=== PATIENT | female | born 1955 | race Caucasian/White ===

== ENCOUNTER 2016-10-16 13:18 | Inpatient (IN) | payer OTHER ==
[~2016-10-16] VITALS: Ht 154.9 cm; Wt 70.4 kg
[2016-10-16] VITALS (7 sets, daily range): BP systolic 128–169; BP diastolic 65–86
--- NOTE | ~2016-10-16 | CON ---
[place], [place] REPORT OF CONSULTATION NAME: BRANDYN ESTEBAN [facility] #: [id number] UNIT #: [id number] ROOM: 407 DOCTOR: LEE KHOURY MD BIRTHDATE: [birth year] DOS: 10/17/2016 REASON FOR CONSULTATION: Assess the patient for ongoing acute exacerbation of respiratory symptoms. HISTORY OF PRESENT ILLNESS: This is a 61-year-old white female known to me with past history of COPD presented to the hospital. The patient has been noted with increased respiratory symptom. The patient has been noted with symptoms of increased shortness of breath, which present for the past couple of days associated with productive cough with yellowish sputum expectoration having chills at home and earache. The patient stated symptoms of upper respiratory tract were also started with rhinorrhea and others. There were no symptoms of hemoptysis. She does have some symptoms of wheezing as well with the chest tightness in the chest. The patient has been assessed in the hospital. The patient has been admitted for medical management of acute exacerbation of COPD. REVIEW OF SYSTEMS: CONSTITUTIONAL: There were no fever, but does complain of chills. She was complaining of fatigue. EYES: Denies any burning, redness, or tenderness. EARS, NOSE, THROAT: No sore throat, hoarseness, otalgia, postnasal drainage. CARDIOVASCULAR: Denies anginal pain, edema or pain of the lower extremities or palpitations. GASTROINTESTINAL: Denies symptoms of dysphagia, nausea, vomiting, diarrhea, abdominal pain, hematemesis or melena. GENITOURINARY: Denies dysuria, suprapubic pain, hematuria. MUSCULOSKELETAL: Denies acute joint pain, redness, or tenderness. SKIN: No lesions or rashes. CENTRAL NERVOUS SYSTEM: Denies dizziness, headache, diplopia, syncopal episodes or seizures. MUSCULOSKELETAL: Denies acute joint pain, redness, or tenderness. Remaining systems were reviewed with the patient, they were noted all negative. PAST MEDICAL HISTORY: 1. The patient's past review of the medical records were noted as acute exacerbation of COPD management. In 09/2015, the patient has been treated for couple of days and then sent home and has actually done well in the home settings. 2. History of severe centrilobular emphysema. 3. Uncomplicated mild persistent bronchial asthma. 4. Hyperlipidemia. 5. Type 2 diabetes mellitus. 6. Generalized anxiety disorder. 7. Osteoporosis. 8. Vitamin D deficiency. 9. History of glaucoma. 10. Chronic respiratory failure, use of oxygen 2 liter nasal cannula. 11. Gastroesophageal reflux disease. PAST SURGICAL HISTORY: [place], [place] REPORT OF CONSULTATION NAME: BRANDYN ESTEBAN UNIT #: [id number] ROOM: 407 DOCTOR: LEE KHOUYR MD BIRTHDATE: [birth year] 1. Reported as cholecystectomy. 2. Surgery of the eye. 3. A ventral hernia repair. 4. Tubal ligation. 5. Surgery of the foot. SOCIAL HISTORY: The patient is , has 2 children. She has been known with past history of tobacco use since age of [age] years old from patient about a pack of cigarettes per day until 2008. There was no history of alcohol use or illicit drug use. FAMILY HISTORY: Father at age of 55 due to complication of acute myocardial infarction. Mother at age 5656 years old from complication related to emphysema as well. MEDICATIONS: Current medication administration use of vitamin D, Fosamax, latanoprost eye drops, gemfibrozil, Incruse Ellipta, melatonin at that time, aspirin 81 mg, citalopram, Lovenox for DVT prophylaxis, metformin, Protonix, sliding insulin coverage, Solu-Medrol mg q.8 hours, Mucinex 1200 mg p.o. b.i.d., DuoNeb, albuterol sulfate for this patient, Zithromax, Rocephin, and other p.r.n. medications administration. DRUG ALLERGIES: No known drug allergies. PHYSICAL EXAMINATION: GENERAL: A 61-year-old female currently noted awake and alert without any distress. Height of 5 feet 1 inch, weight of 155 pounds, BMI 29.3. VITAL SIGNS: Shows normal temperature, respiratory rate 20, heart rate of 100-112, blood pressure 134/60-141/68. Pulse oxygen saturation noted on 2 liters nasal cannula 95% saturation. HEENT: Examination shows head was atraumatic. Eyes nonicterus. NECK: Supple. CARDIOVASCULAR: S1, S2 audible. LUNGS: Showed diffuse reduction of the breath sounds bilaterally with mild to moderate expiratory wheezing, no crackles. ABDOMEN: Soft, nontender, bowel sounds present. CENTRAL NERVOUS SYSTEM: The patient was noted cranial nerves 2 through 12 intact. No focal deficit. MUSCULOSKELETAL: No deformities. SKIN: No lesions or rashes. LABORATORY DATA: CBC: WBC count 7.5, hemoglobin 13.2, hematocrit 42.5, platelet count was normal. BMP of the patient yesterday on admission, BUN 13, creatinine 1.18. Remaining labs for this patient normal. Lactic acid 4.5. CBC of the patient on 10/17/2016 was noted as normal. CMP on 10/17/2016 shows normal BUN and creatinine. Follow up lactic acid this patient was noted as 1.8. Chest x-ray shows changes of COPD, hyperinflation. CT of the chest that was done for the patient yesterday as well, which was reviewed shows evidence of centrilobular emphysema changes were noted. There was no pulmonary infiltration was noted. About 4 mm nodule noted in the subpleural area in the right lower [place], [place] REPORT OF CONSULTATION NAME: BRANDYN ESTEBAN UNIT #: [id number] ROOM: 407 DOCTOR: MARICHUY ALBRIGHT MD,LEE BIRTHDATE: [birth year] lobe for this patient as a new finding. IMPRESSION: 1. The patient who has been currently admitted to the hospital with findings of acute sepsis related to acute tracheobronchitis, mild acute kidney injury, exacerbation of chronic obstructive pulmonary disease. 2. Incidental finding of 4 mm right lower lobe pulmonary nodule for the patient was noted as well at this time not requiring any assessment as inpatient. 3. Past history of tobacco use, which has been discontinued previously. 4. History of bronchial asthma, acute exacerbation as well. PLAN OF TREATMENT: Continue the current plan of management as ongoing. Reduce the dose of Solu-Medrol because reduction of respiratory symptoms was noted. Solu-Medrol will be decreased to 40 mg b.i.d. with close monitoring of the respiratory symptoms. Continuation of the bronchodilators; however, the bronchodilator needs to be changed from DuoNeb to albuterol sulfate alone because use of Incruse Ellipta and the drug interaction. The patient will be started on Dulera as the patient had use of Symbicort inhaler previously as well for the long-term management of Breo-Ellipta inhaler for the long-term management of bronchial asthma and chronic obstructive pulmonary disease. Other further changes in the treatment will be done based on the progression of the illness. Sputum for Gram stain and culture will be done if the patient is able to expectorate any sputum. Other changes in treatment and plan of management. Usual care. Pulmonary nodule assessment will be done as an outpatient with followup CT scan for this patient. PET scan will not have enough sensitivity because the nodule is less than 10 mm in size. Thanks for allowing me to participate in the care of this patient. LEE BENEDICT MD CM:CONSTR:REPORT OF CONSULTATION 1423 10/18/16 0451 interface
--- NOTE | ~2016-10-16 | EKG ---
[place], [place] ELECTROCARDIOGRAM REPORT NAME: BRANDYN ESTEBAN UNIT #: [id number] ROOM: 407 DOCTOR: RADHA SWIFT MD BIRTHDATE: [birth year] DOS: 10/16/2016 TIME: 1441. FINDINGS: 1. Sinus rhythm at the rate of 97. 2. Normal electrocardiogram. RADHA SWIFT MD CM:EKGRPT:ELECTROCARDIOGRAM REPORT [id number] 1915 RADHA SWIFT MD
--- NOTE | ~2016-10-16 | PR ---
[place], [place] PROGRESS NOTE [id number] UNIT #: [id number] ROOM: 407 DOCTOR: MARICHUY ALBRIGHT MD,LEE BIRTHDATE: [birth year] DOS: 10/18/2016 PULMONARY FOLLOWUP NOTE SUBJECTIVE: She has been noted with significant further improvement and resolution of respiratory symptom at this time, currently sitting on the bed, stating ambulating for the patient with decreased shortness of breath as well. OBJECTIVE: VITAL SIGNS: Showed normal temperature, respiratory rate 18, heart rate 83, blood pressure 138/68. The pulse oxygen saturation on 2 liters nasal cannula 98% saturation recorded. HEENT: Examination shows no acute change. NECK: Supple. CARDIOVASCULAR SYSTEM: S1, S2 audible. LUNGS: Noted without any wheezing or crackles. ABDOMEN: Soft, nontender. IMPRESSION: 1. Acute exacerbation of chronic obstructive pulmonary disease and bronchial asthma. Acute tracheobronchitis, which has been improving gradually. 2. A 4 mm nodule was noted for this patient, incidental finding of the right lower lobe. PLAN OF TREATMENT: The patient could be considered for home discharge since she has been noted significant reduction, improvement and resolution of the acute symptoms. Other treatment plan to be continued as previously in progress. Usual care. LEE BENEDICT MD CM:PNTRANS [id number] LEE ALBRIGHT MD 10/19/16 0353 interface
[~2016-10-16 13:18] MED LIST: ADVAIR 250/501 EA INH; ALENDRONATE SOD70 M1 PO; ALLEGRA-D 24 H1 EACH PO; AMOXICILLIN500 MG PO; ANTIBIOTIC O500 U/GM TP; ASPIRIN81 M1 PO; ATELVIA35 MG PO; ATIVAN1 MG PO; AUGMENTIN 875875 MG PO; Albuterol Sulfat3 ML INH; BREO ELLIPTA 11 EACH IH; BROMPHENIRAMIN473 M4 PO; CALCIUM + D 6001 TA1 PO; CALCIUM CITRATE1 TA1; CALCIUM CITRATE1 TA1 PO; CALCIUM CITRATE1 TA5; CALCIUM/VITAMIN1 CAP PO; CELEXA20 MG PO; CIPRO250 MG PO; CIPRO500 MG PO; CIPRODEX 0.3%-7.5 ML OT; CYCLOBENZAPRINE10 MG PO; DAYPRO600 M1 PO; DIFLUCAN150 MG PO; DOXYCYCLINE100 M3 PO; FLAGYL500 MG PO; Flovent 220 M220 MCG INH; GLUCOPHAGE500 MG PO; HYDROCODONE BIT1 T11 PO; IBUPROFEN600 MG PO; INCRUSE EL62.5 MCG/A IH; LEVAQUIN750 M1 PO; LOPID600 MG PO; LOTRISONE 0.05%15 GM T; MOTRIN800 MG PO; MYCOSTATIN100000 U/M PO; NAPROSYN500 MG PO; NEUTRA-PHOS F1.25 GM PO; NYSTATIN100000 U/M PO; OXYGEN NAS; PREDNICOT20 MG PO; PREDNISONE10 MG PO; PREDNISONE20 MG PO; PRILOSEC20 M2 PO; PRILOSEC20 MG PO; PROAIR HFA0.09 MG/AC IH; ROBAXIN750 MG PO; SIMVASTATIN80 MG PO; SPIRIVA -- 3018 MCG INH; THE MEDICINE S400 IU PO; TRAMADOL HCL50 MG PO; TRIMOX500 MG PO; UREA; UREA T; VENTOLIN0.09 MG/AC IH; VISTARIL50 MG PO; VITAMIN D50000 I2 PO; VOLTAREN50 M1 PO; XALATAN 0.005%2.5 ML INTRAOC; ZITHROMAX250 MG PO; ZOFRAN4 MG PO
[2016-10-16 14:38] LABS: BASO # 0.1 10*3/uL (0.0-0.1); BASO % 0.7 % (0.0-1.0); EOS # 0.6 10*3/uL (0.0-0.4); EOS % 7.5 % (1.0-4.0); HEMATOCRIT 42.5 % (37.0-47.0); HEMOGLOBIN 13.2 g/dl (12.0-16.0); IG # 0.1 10*3/uL (0.0-0.1); LYMPH # 1.4 10*3/uL (1.3-4.4); MEAN CELL VOLUME 79.9 fl (81.0-99.0); MEAN CORPUSCULAR HGB 24.8 pg (27.0-31.0); MEAN CORPUSCULAR HGB CONC 31.1 g/dl (33.0-37.0); MEAN PLATELET VOLUME 10.1 fl (9.6-12.3); MONO # 0.7 10*3/uL (0.1-1.0); MONO % 9.2 % (3.0-9.0); NEUT # 4.7 10*3/uL (2.3-7.9); NEUT % 62.3 % (47.0-73.0); PLATELET COUNT AUTOMATED 252 10*3/uL (130-400); RED BLOOD COUNT 5.32 10*6/uL (4.10-5.10); RED CELL DISTRI WIDTH 14.2 % (0-14.5); WHITE BLOOD COUNT 7.5 10*3/uL (4.8-10.8)
[2016-10-16 15:01] LABS: BUN 13 mg/dl (7-24); CARBON DIOXIDE 30 mmol/L (21-32); CHLORIDE 105 mmol/L (98-107); EST GLOM FILT AFRICAN AMERICAN 57 ml/min; GLUCOSE 147 mg/dL (65-99); POTASSIUM 4.1 mmol/L (3.5-5.1); SODIUM 143 mmol/L (136-145)
[2016-10-16 15:06] LABS: TROPONIN I < 0.015 ng/ml (<0.045)
[2016-10-16] MEDS ORDERED: INCRUSE EL62.5 MCG/A IH (17:02)
[2016-10-16] MEDS ORDERED: DIAZEPAM2 MG PO (17:05)
[2016-10-16] MEDS ORDERED: MELATONIN3 MG PO (17:08)
[2016-10-16 18:52] LABS: LA>2 REFLEX 2 HR DRAW NOW
[2016-10-17] VITALS: BP 128/62
[2016-10-17 06:28] LABS: BASO % 0.3 % (0.0-1.0); EOS % 0.1 % (1.0-4.0); HEMATOCRIT 40.6 % (37.0-47.0); HEMOGLOBIN 12.5 g/dl (12.0-16.0); IG # 0.2 10*3/uL (0.0-0.1); LYMPH # 0.8 10*3/uL (1.3-4.4); LYMPH % 8.9 % (27.0-41.0); MEAN CORPUSCULAR HGB 25.3 pg (27.0-31.0); MEAN CORPUSCULAR HGB CONC 30.8 g/dl (33.0-37.0); MEAN PLATELET VOLUME 10.2 fl (9.6-12.3); MONO # 0.1 10*3/uL (0.1-1.0); MONO % 1.6 % (3.0-9.0); NEUT # 7.5 10*3/uL (2.3-7.9); NEUT % 86.5 % (47.0-73.0); PLATELET COUNT AUTOMATED 240 10*3/uL (130-400); RED BLOOD COUNT 4.95 10*6/uL (4.10-5.10); RED CELL DISTRI WIDTH 14.1 % (0-14.5); WHITE BLOOD COUNT 8.7 10*3/uL (4.8-10.8)
[2016-10-17 06:49] LABS: HEMOGLOBIN A1c 5.7 % (4.8-5.6)
[2016-10-17 06:53] LABS: ALBUMIN 3.4 gm/dl (3.1-4.5); BUN 11 mg/dl (7-24); CARBON DIOXIDE 26 mmol/L (21-32); CHLORIDE 108 mmol/L (98-107); EST GLOM FILT AFRICAN AMERICAN > 60 ml/min; GLUCOSE 195 mg/dL (65-99); MAGNESIUM 2.3 mg/dL (1.5-2.1); PHOSPHOROUS 2.7 mg/dL (2.5-4.9); POTASSIUM 4.3 mmol/L (3.5-5.1); SGOT/AST 9 IU/L (3-35); SGPT/ALT 15 U/L (12-78); SODIUM 142 mmol/L (136-145)
[2016-10-17 07:03] LABS: FOLIC ACID 8.26 ng/mL (>5.38); VITAMIN D, 25-HYDROXY 22.1 ng/mL (30-100)
[2016-10-17 07:04] LABS: ALKALINE PHOSPHATASE 98 U/L (45-117); BILIRUBIN, TOTAL 0.2 mg/dl (0.2-1.0); THYROID STIM HORMONE (HS) 0.464 uIU/ml (0.358-4.75); TOTAL PROTEIN 7.1 gm/dL (6.4-8.2)
[2016-10-17 08:00] VITALS: BP 134/56
[2016-10-17 12:00] VITALS: BP 134/60
[2016-10-17 16:00] VITALS: BP 140/60
[2016-10-17 20:00] VITALS: BP 121/46
[2016-10-17 20:41] VITALS: BP 120/36
[2016-10-18] VITALS: BP 129/60
[2016-10-18 04:00] VITALS: BP 126/53
[2016-10-18 08:00] VITALS: BP 138/68
[2016-10-18] MEDS ORDERED: MUCINEX ER600 MG PO (09:53)
[2016-10-18] MEDS ORDERED: PREDNISONE50 MG PO (09:54)
[2016-10-18] MEDS ORDERED: LEVAQUIN500 M2 PO (09:54)
[2016-10-18] MEDS ORDERED: Motrin,Rufen800 MG PO (09:59)
== END 2016-10-18 10:34 | disposition home or self-care (01) | DRG 871 ==
LOC: ED 13:18 → EDHOLD 16:10 → 4E 16:10
PROVIDERS: Emergency Medicine; Internal Medicine
DX: A41.9 Sepsis, unspecified organism (principal); J18.9 Pneumonia, unspecified organism; N17.0 Acute kidney failure with tubular necrosis; J96.20 Acute and chronic respiratory failure, unspecified whether with hypoxia or hypercapnia; J44.1 Chronic obstructive pulmonary disease with (acute) exacerbation; J44.0 Chronic obstructive pulmonary disease with (acute) lower respiratory infection; E11.8 Type 2 diabetes mellitus with unspecified complications; Z66 Do not resuscitate; R65.20 Severe sepsis without septic shock; I10 Essential (primary) hypertension; K21.9 Gastro-esophageal reflux disease without esophagitis; J20.9 Acute bronchitis, unspecified; E58 Dietary calcium deficiency; E55.9 Vitamin D deficiency, unspecified; E78.1 Pure hyperglyceridemia; R91.1 Solitary pulmonary nodule; Z90.49 Acquired absence of other specified parts of digestive tract; Z98.51 Tubal ligation status; Z87.891 Personal history of nicotine dependence; Z82.49 Family history of ischemic heart disease and other diseases of the circulatory system; Z79.51 Long term (current) use of inhaled steroids; Z79.84 Long term (current) use of oral hypoglycemic drugs; Z79.899 Other long term (current) drug therapy; Z99.81 Dependence on supplemental oxygen; Z82.5 Family history of asthma and other chronic lower respiratory diseases

== ENCOUNTER 2016-10-26 12:04 | Inpatient (IN) | payer OTHER ==
[~2016-10-26] VITALS: Ht 154.9 cm; Wt 66.3 kg
[2016-10-26] VITALS (7 sets, daily range): BP systolic 126–165; BP diastolic 64–89
--- NOTE | ~2016-10-26 | PROC NOTE ---
[place], [place] PROCEDURE NOTE [id number] UNIT #: [id number] ROOM: 412 DOCTOR: MARICHUY ALBRIGHT MD,LEE BIRTHDATE: [birth year] DOS: 10/28/2016 PREOPERATIVE DIAGNOSES: Severe nonproductive cough for this patient with chronic obstructive pulmonary disease exacerbation. POSTOPERATIVE DIAGNOSES: Removal of moderate amount of impaction, thick mucus plugs in the endobronchial tree bilaterally with finding of acute tracheobronchitis were also noted. PROCEDURE DESCRIPTION: Informed consent obtained for the patient. The patient brought to the OR and placed in supine position. Conscious sedation administered by the Anesthesia Department. After achieving appropriate sedation, airway introduced into the mouth. Bronchoscope advanced into the airway into laryngeal area. Epiglottis and vocal cords were seen. Bronchoscope advanced to the vocal cords into the tracheal lumen. The tracheal lumen was noted with the moderate amount of mucus secretion, which was present in the endobronchial tree and tracheal lumen. Impaction of the mucous plug were noted in the bronchial tree bilaterally. The right upper, right middle, right lower, left upper, lingular lower lobe bronchi were all examined. The procedure was well tolerated by the patient without any complications. Postoperative findings for this patient were discussed with the patient briefly after the completion of the procedure in the recovery room. The bronchial washings sent for all the cultures. LEE BENEDICT MD CM:PROCNOTE:PROCEDURE NOTE 1042 [id number] LEE ALBRIGHT MD
--- NOTE | ~2016-10-26 | PN ---
[place], [place] PROGRESS NOTE NAME: BRANDYN ESTEBAN [facility] #: [id number] UNIT #: [id number] ROOM: 412 DOCTOR: LEE KHOURY MD BIRTHDATE: [birth year] DATE: 10/29/16 SUBJECTIVE: She had bronchoscopy done yesterday with the removal of the mucous plugs resulting in improvement in symptoms of coughing. Denies symptoms of chest pain or any abdominal pain. OBJECTIVE: VITAL SIGNS: Normal temperature, respiratory rate of 18, heart rate of 89, blood pressure 144/78. Intake is 2900 mL, ____ 1100 mL, pulse oxygen saturation on 2 liters nasal cannula 97% saturation. HEENT: Examination shows no new change. CARDIOVASCULAR: S1, S2 audible. LUNGS: The patient was noted without any crackles. There was no wheezing. ABDOMEN: Soft, nontender. LABORATORY DATA: Culture of the bronchial washing showing preliminary normal jamarcus, final culture results were pending. The Gram stain of the patient's bronchial washing was noted with moderate white blood cells, few epithelial cells, rare gram-negative bacilli and gram-positive bacilli. BMP: Glucose of 237, remaining BMP normal. CBC: WBC count 19.1, remaining CBC grossly normal. IMPRESSION: The patient with resolving acute tracheobronchitis with current medical management, status post bronchoscopy with the clearance of the mucous plugs from the airways resulting in improvement and resolving acute tracheobronchitis and acute chronic hypoxic respiratory failure with chronic obstructive pulmonary disease. PLAN OF TREATMENT: The patient could be discharged home on oral antibiotics. Continuation of current plan of management as previously. Usual care. Supportive therapy as a plan of care as in progress. Usual treatments. LEE KHOURY MD CM:PNTRANS 1203 1144 LEE ALBRIGHT MD 11/01/16 1144 REHANA NERI.R
--- NOTE | ~2016-10-26 | CON ---
[place], [place] REPORT OF CONSULTATION NAME: BRANDYN ESTEBAN [facility] #: [id number] UNIT #: [id number] ROOM: 412 DOCTOR: MARICHUY ALBRIGHT MDLEE BIRTHDATE: [birth year] DATE: 10/27/16 PULMONARY CONSULTATION, EVALUATION AND MANAGEMENT NOTE REASON FOR CONSULTATION: To assess the patient for recurrence of the respiratory symptoms, nonproductive cough and other assessment. HISTORY OF PRESENT ILLNESS: This is a 61-year-old white female who has been recently admitted to the hospital, treated for acute exacerbation of COPD, acute tracheobronchitis, presented back to the Emergency Room where the patient has been noted with generalized weakness and fatigue and also noted with cough, which has been noted nonproductive. The patient denies symptoms of chest pain. The wheezing of the patient has been resolved and completely improved. The patient denies any symptoms of hemoptysis. She came back to the Emergency Room and assessed on 10/26/2016 and was readmitted to the hospital for further medical management. REVIEW OF SYSTEMS: CONSTITUTIONAL: Fatigue and tiredness noted without any symptoms of fever or chills. EYES: Denies any burning, redness, or tenderness. EARS, NOSE, THROAT: No sore throat, hoarseness, otalgia, or postnasal drainage. CARDIOVASCULAR: Denies anginal pain, edema or pain of lower extremities or palpitations. GASTROINTESTINAL: No dysphagia, nausea, vomiting, diarrhea, abdominal pain, hematemesis, melena, or hematochezia. GENITOURINARY: Denies dysuria, suprapubic pain or hematuria. MUSCULOSKELETAL: No acute joint pain, redness, or tenderness. SKIN: No lesions or rashes. MUSCULOSKELETAL: No acute deformities. CENTRAL NERVOUS SYSTEM: Denies any symptoms of tingling sensation, syncopal episodes or seizures. Remaining systems were reviewed with the patient, they were noted all negative. PAST MEDICAL HISTORY: Noted with recent hospitalization in this hospital and discharged on 10/18/2016 for the medical management for acute exacerbation of COPD and acute tracheobronchitis. Past medical history, social history, surgical history, family history has been reviewed with the patient and remains unchanged as previous consultation which was completed on 10/17/2016. Please refer to that consultation in the [facility] for this patient for any further information if needed to be obtained from that. CURRENT MEDICATIONS: The current medications which has been used for this patient were noted use of citalopram, ____, Lovenox for DVT prophylaxis, DuoNeb, aspirin, ibuprofen, Dulera, IV Solu-Medrol, doxycycline intravenously and other p.r.n. medications administration. PHYSICAL EXAMINATION: GENERAL: A 61-year-old female who has been currently noted to be awake and alert without any distress, currently sitting on the side of the bed. The height was noted as 5 feet 1 inch, weight of 146 pounds and BMI 27.6. [place], [place] REPORT OF CONSULTATION NAME: BRANDYN ESTEBAN UNIT #: [id number] ROOM: 412 DOCTOR: MARICHUY ALBRIGHT MD,LEE BIRTHDATE: [birth year] VITAL SIGNS: For the patient which has been recorded shows the temperature of the patient was noted as normal. The respiratory rate of the patient recorded as 20. The heart rate of 90 and blood pressure 119/59. Her pulse oxygen saturation recorded on 2 L nasal cannula was 97% saturation. HEENT: Examination shows head was atraumatic. Eyes are nonicterus. NECK: Supple. CARDIOVASCULAR: S1, S2 audible. LUNGS: Noted with general reduction in breath sounds bilaterally without any wheezing or crackles at the present time. ABDOMEN: Soft, nontender. LABORATORY DATA: BMP this morning, glucose 181, BUN and creatinine was normal. Phosphorus of 1.9. CBC this morning, WBC count 15.1, hemoglobin and hematocrit normal, platelet count was normal with 87% segmented neutrophils. CK-MB and troponin of the patient 3 sets obtained yesterday and this morning were noted as normal. The chest x-ray of the patient that was done on admission shows hyperinflation changes of COPD. D-dimer were noted as normal range. IMPRESSION: The patient who has been currently admitted to the hospital noted with acute bronchitis with coughing for this patient with chronic obstructive pulmonary disease exacerbation as well. Other previous medical problems previously listed in the history for this patient remains unchanged. PLAN OF TREATMENT: Because of severe nonproductive cough, she will benefit from fiberoptic bronchoscopy, which is planned to be done in the morning and the patient is agreeable for the procedure. N.p.o. past midnight status has been ordered. Gradual reduction of Solu-Medrol dose for this patient as well would be started as the patient's wheezing has not been present on today's examination. Continuation of current antibiotics. No further change in the treatment needs to be done. Usual care. Other supportive plan of management and care. Usual medical management, other therapies. MARICHUY ALBRIGHT MD,LEE CM:CONSTR:REPORT OF CONSULTATION 0719 10/28/16 1723 REHANA NERI MIS.R
--- NOTE | ~2016-10-26 | PR ---
[place], [place] PROGRESS NOTE NAME: BRANDYN ESTEBAN [facility] #: [id number] UNIT #: [id number] ROOM: 412 DOCTOR: MARICHUY ALBRIGHT MD,LEE BIRTHDATE: [birth year] DOS: 10/28/2016 SUBJECTIVE: She has been noted comfortable at this time, still noted symptoms of nonproductive cough. The patient was planned for bronchoscopy today. Has been noted n.p.o. past midnight for bronchoscopy. OBJECTIVE: VITAL SIGNS: Showed normal temperature, respiratory rate of 19, heart rate of 84, blood pressure 135/65. The pulse oxygen saturation of the patient recorded as 98% on 2 liters nasal cannula. HEENT: Showed no acute change. NECK: Supple. CARDIOVASCULAR: S1, S2 audible. LUNGS: Noted without any wheezing or crackles at this time. Breath sounds noted moderately decreased bilaterally. There was no wheezing. ABDOMEN: Soft, nontender. LABORATORY DATA: CBC today: WBC count of 27.2. The remaining CBC was normal. Blood culture from the 18 of this month showed no bacterial growth, final culture results were pending. BMP of patient shows glucose 220, BUN and creatinine was normal. IMPRESSION: The patient, who had been currently treated for acute tracheobronchitis. The patient has severe nonproductive cough with the chronic obstructive pulmonary disease. PLAN FOR TREATMENT: No change in plan of management at this time. Proceed with the bronchoscopy already planned for this patient. Further treatment changes will be done based on the progression of the illness. Leukocytosis in which the patient, which has been observed, the patient will be monitored. At the present time, most likely related to use of corticosteroids. LEE BENEDICT MD CM:PNTRANS 1040 1321 LEE ALBRIGHT MD 10/28/16 1322 interface
--- NOTE | ~2016-10-26 | CON ---
[place], [place] REPORT OF CONSULTATION NAME: BRANDYN ESTEBAN [facility] #: [id number] UNIT #: [id number] ROOM: 412 DOCTOR: MARICHUY ALBRIGHT MDLEE BIRTHDATE: [birth year] DATE: 10/27/16 PULMONARY CONSULTATION, EVALUATION AND MANAGEMENT NOTE REASON FOR CONSULTATION: To assess the patient for recurrence of the respiratory symptoms, nonproductive cough and other assessment. HISTORY OF PRESENT ILLNESS: This is a 61-year-old white female who has been recently admitted to the hospital, treated for acute exacerbation of COPD, acute tracheobronchitis, presented back to the Emergency Room where the patient has been noted with generalized weakness and fatigue and also noted with cough, which has been noted nonproductive. The patient denies symptoms of chest pain. The wheezing of the patient has been resolved and completely improved. The patient denies any symptoms of hemoptysis. She came back to the Emergency Room and assessed on 10/26/2016 and was readmitted to the hospital for further medical management. REVIEW OF SYSTEMS: CONSTITUTIONAL: Fatigue and tiredness noted without any symptoms of fever or chills. EYES: Denies any burning, redness, or tenderness. EARS, NOSE, THROAT: No sore throat, hoarseness, otalgia, or postnasal drainage. CARDIOVASCULAR: Denies anginal pain, edema or pain of lower extremities or palpitations. GASTROINTESTINAL: No dysphagia, nausea, vomiting, diarrhea, abdominal pain, hematemesis, melena, or hematochezia. GENITOURINARY: Denies dysuria, suprapubic pain or hematuria. MUSCULOSKELETAL: No acute joint pain, redness, or tenderness. SKIN: No lesions or rashes. MUSCULOSKELETAL: No acute deformities. CENTRAL NERVOUS SYSTEM: Denies any symptoms of tingling sensation, syncopal episodes or seizures. Remaining systems were reviewed with the patient, they were noted all negative. PAST MEDICAL HISTORY: Noted with recent hospitalization in this hospital and discharged on 10/18/2016 for the medical management for acute exacerbation of COPD and acute tracheobronchitis. Past medical history, social history, surgical history, family history has been reviewed with the patient and remains unchanged as previous consultation which was completed on 10/17/2016. Please refer to that consultation in the [facility] for this patient for any further information if needed to be obtained from that. CURRENT MEDICATIONS: The current medications which has been used for this patient were noted use of citalopram, ____, Lovenox for DVT prophylaxis, DuoNeb, aspirin, ibuprofen, Dulera, IV Solu-Medrol, doxycycline intravenously and other p.r.n. medications administration. PHYSICAL EXAMINATION: GENERAL: A 61-year-old female who has been currently noted to be awake and alert without any distress, currently sitting on the side of the bed. The height was noted as 5 feet 1 inch, weight of 146 pounds and BMI 27.6. [place], [place] REPORT OF CONSULTATION NAME: BRANDYN ESTEBAN UNIT #: [id number] ROOM: 412 DOCTOR: MARICHUY ALBRIGHT MD,LEE BIRTHDATE: [birth year] VITAL SIGNS: For the patient which has been recorded shows the temperature of the patient was noted as normal. The respiratory rate of the patient recorded as 20. The heart rate of 90 and blood pressure 119/59. Her pulse oxygen saturation recorded on 2 L nasal cannula was 97% saturation. HEENT: Examination shows head was atraumatic. Eyes are nonicterus. NECK: Supple. CARDIOVASCULAR: S1, S2 audible. LUNGS: Noted with general reduction in breath sounds bilaterally without any wheezing or crackles at the present time. ABDOMEN: Soft, nontender. LABORATORY DATA: BMP this morning, glucose 181, BUN and creatinine was normal. Phosphorus of 1.9. CBC this morning, WBC count 15.1, hemoglobin and hematocrit normal, platelet count was normal with 87% segmented neutrophils. CK-MB and troponin of the patient 3 sets obtained yesterday and this morning were noted as normal. The chest x-ray of the patient that was done on admission shows hyperinflation changes of COPD. D-dimer were noted as normal range. IMPRESSION: The patient who has been currently admitted to the hospital noted with acute bronchitis with coughing for this patient with chronic obstructive pulmonary disease exacerbation as well. Other previous medical problems previously listed in the history for this patient remains unchanged. PLAN OF TREATMENT: Because of severe nonproductive cough, she will benefit from fiberoptic bronchoscopy, which is planned to be done in the morning and the patient is agreeable for the procedure. N.p.o. past midnight status has been ordered. Gradual reduction of Solu-Medrol dose for this patient as well would be started as the patient's wheezing has not been present on today's examination. Continuation of current antibiotics. No further change in the treatment needs to be done. Usual care. Other supportive plan of management and care. Usual medical management, other therapies. MARICHUY ALBRIGHT MD,LEE CM:CONSTR:REPORT OF CONSULTATION 1019 11/01/16 1445 REHANA NERI MIS.R
[~2016-10-26 12:04] MED LIST changes: +DIAZEPAM2 MG PO; +LEVAQUIN500 M2 PO; +MELATONIN3 MG PO; +MUCINEX ER600 MG PO; +Motrin,Rufen800 MG PO; +PREDNISONE50 MG PO
[2016-10-26 13:18] LABS: HEMATOCRIT 41.9 % (37.0-47.0); HEMOGLOBIN 13.5 g/dl (12.0-16.0); MEAN CELL VOLUME 79.2 fl (81.0-99.0); MEAN CORPUSCULAR HGB 25.5 pg (27.0-31.0); MEAN CORPUSCULAR HGB CONC 32.2 g/dl (33.0-37.0); MEAN PLATELET VOLUME 9.7 fl (9.6-12.3); PLATELET COUNT AUTOMATED 298 10*3/uL (130-400); RED BLOOD COUNT 5.29 10*6/uL (4.10-5.10); RED CELL DISTRI WIDTH 14.6 % (0-14.5); WHITE BLOOD COUNT 15.3 10*3/uL (4.8-10.8)
[2016-10-26 13:35] LABS: ALBUMIN 3.3 gm/dl (3.1-4.5); ALKALINE PHOSPHATASE 94 U/L (45-117); BILIRUBIN, TOTAL 0.3 mg/dl (0.2-1.0); BUN 17 mg/dl (7-24); CARBON DIOXIDE 29 mmol/L (21-32); CHLORIDE 104 mmol/L (98-107); EST GLOM FILT AFRICAN AMERICAN > 60 ml/min; GLUCOSE 131 mg/dL (65-99); SGOT/AST 8 IU/L (3-35); SGPT/ALT 11 U/L (12-78); SODIUM 140 mmol/L (136-145); TOTAL PROTEIN 6.7 gm/dL (6.4-8.2); TROPONIN I < 0.015 ng/ml (<0.045)
[2016-10-26 13:40] LABS: EOSINOPHIL # 0.6 10*3/uL (0-0.4); EOSINOPHILS 4 % (1-4); LYMPHOCYTE # 2.6 10*3/uL (1.3-4.4); MONOCYTE # 0.6 10*3/uL (0.1-1.0); NEUTROPHIL # 11.5 10*3/uL (2.3-7.9); NEUTROPHILS 75 % (47-73); PLATELET SUFFICIENCY NORMAL (NORMAL); TOTAL CELLS COUNTED 100 #CELLS
[2016-10-26 18:36] LABS: CKMB 0.8 ng/ml (0.5-3.6); CPK 26 U/L (26-192)
[2016-10-26 18:37] LABS: TROPONIN I < 0.015 ng/ml (<0.045)
[2016-10-27] VITALS: BP 120/61
[2016-10-27 00:38] LABS: CKMB 0.8 ng/ml (0.5-3.6); CPK 29 U/L (26-192); TROPONIN I < 0.015 ng/ml (<0.045)
[2016-10-27 06:39] LABS: HEMATOCRIT 39.7 % (37.0-47.0); HEMOGLOBIN 12.3 g/dl (12.0-16.0); MEAN CELL VOLUME 80.9 fl (81.0-99.0); MEAN CORPUSCULAR HGB 25.1 pg (27.0-31.0); MEAN PLATELET VOLUME 9.8 fl (9.6-12.3); PLATELET COUNT AUTOMATED 237 10*3/uL (130-400); RED BLOOD COUNT 4.91 10*6/uL (4.10-5.10); RED CELL DISTRI WIDTH 14.6 % (0-14.5); WHITE BLOOD COUNT 15.1 10*3/uL (4.8-10.8)
[2016-10-27 06:48] LABS: CPK 23 U/L (26-192)
[2016-10-27 06:59] LABS: TROPONIN I < 0.015 ng/ml (<0.045)
[2016-10-27 07:06] LABS: BUN 12 mg/dl (7-24); CARBON DIOXIDE 29 mmol/L (21-32); CHLORIDE 106 mmol/L (98-107); EST GLOM FILT AFRICAN AMERICAN > 60 ml/min; GLUCOSE 181 mg/dL (65-99); MAGNESIUM 2.7 mg/dL (1.5-2.1); PHOSPHOROUS 1.9 mg/dL (2.5-4.9); POTASSIUM 4.7 mmol/L (3.5-5.1); SODIUM 142 mmol/L (136-145)
[2016-10-27 07:16] LABS: LYMPHOCYTE # 0.9 10*3/uL (1.3-4.4); METAMYELOCYTES 2 % (0-0); MONOCYTE # 0.6 10*3/uL (0.1-1.0); MYELOCYTES 1 % (0-0); NEUTROPHIL # 13.1 10*3/uL (2.3-7.9); NEUTROPHILS 87 % (47-73); PLATELET SUFFICIENCY NORMAL (NORMAL); TOTAL CELLS COUNTED 100 #CELLS
[2016-10-27 08:00] VITALS: BP 119/59
[2016-10-27 12:00] VITALS: BP 157/68
[2016-10-27 16:00] VITALS: BP 114/90
[2016-10-27 20:00] VITALS: BP 138/63
[2016-10-28] VITALS (8 sets, daily range): BP systolic 125–159; BP diastolic 60–98
[2016-10-28 06:23] LABS: HEMATOCRIT 42.1 % (37.0-47.0); HEMOGLOBIN 12.5 g/dl (12.0-16.0); MEAN CELL VOLUME 83.5 fl (81.0-99.0); MEAN CORPUSCULAR HGB 24.8 pg (27.0-31.0); MEAN CORPUSCULAR HGB CONC 29.7 g/dl (33.0-37.0); MEAN PLATELET VOLUME 9.9 fl (9.6-12.3); RED BLOOD COUNT 5.04 10*6/uL (4.10-5.10); RED CELL DISTRI WIDTH 14.9 % (0-14.5); WHITE BLOOD COUNT 27.2 10*3/uL (4.8-10.8)
[2016-10-28 06:24] LABS: PLATELET COUNT AUTOMATED 309 10*3/uL (130-400)
[2016-10-28 06:51] LABS: BUN 14 mg/dl (7-24); CARBON DIOXIDE 28 mmol/L (21-32); CHLORIDE 107 mmol/L (98-107); EST GLOM FILT AFRICAN AMERICAN > 60 ml/min; GLUCOSE 220 mg/dL (65-99); PHOSPHOROUS 3.3 mg/dL (2.5-4.9); POTASSIUM 4.5 mmol/L (3.5-5.1); SODIUM 142 mmol/L (136-145)
[2016-10-28 07:06] LABS: LYMPHOCYTE # 1.9 10*3/uL (1.3-4.4); METAMYELOCYTES 1 % (0-0); MONOCYTE # 0.5 10*3/uL (0.1-1.0); MYELOCYTES 1 % (0-0); NEUTROPHIL # 24.2 10*3/uL (2.3-7.9); NEUTROPHILS 89 % (47-73); PLATELET SUFFICIENCY NORMAL (NORMAL); TOTAL CELLS COUNTED 100 #CELLS
[2016-10-29] VITALS: BP 136/61
[2016-10-29 05:53] LABS: BUN 23 mg/dl (7-24); CARBON DIOXIDE 31 mmol/L (21-32); CHLORIDE 104 mmol/L (98-107); EST GLOM FILT AFRICAN AMERICAN > 60 ml/min; GLUCOSE 237 mg/dL (65-99); POTASSIUM 4.9 mmol/L (3.5-5.1); SODIUM 142 mmol/L (136-145)
[2016-10-29 06:10] LABS: HEMATOCRIT 38.9 % (37.0-47.0); HEMOGLOBIN 11.9 g/dl (12.0-16.0); MEAN CELL VOLUME 81.9 fl (81.0-99.0); MEAN CORPUSCULAR HGB 25.1 pg (27.0-31.0); MEAN CORPUSCULAR HGB CONC 30.6 g/dl (33.0-37.0); MEAN PLATELET VOLUME 9.9 fl (9.6-12.3); PLATELET COUNT AUTOMATED 278 10*3/uL (130-400); RED BLOOD COUNT 4.75 10*6/uL (4.10-5.10); RED CELL DISTRI WIDTH 14.7 % (0-14.5); WHITE BLOOD COUNT 19.1 10*3/uL (4.8-10.8)
[2016-10-29 06:51] LABS: BASOPHIL # 0.2 10*3/uL (0-0.1); BASOPHILS 1 % (0-1); LYMPHOCYTE # 1.1 10*3/uL (1.3-4.4); MONOCYTE # 0.8 10*3/uL (0.1-1.0); NEUTROPHILS 89 % (47-73); PLATELET SUFFICIENCY NORMAL (NORMAL); TOTAL CELLS COUNTED 100 #CELLS
[2016-10-29 08:00] VITALS: BP 144/78
[2016-10-29 12:00] VITALS: BP 122/70
[2016-10-29] MEDS ORDERED: DOXYCYCLINE100 M3 PO (12:10)
[2016-10-29] MEDS ORDERED: PREDNISONE10 MG PO (12:10)
[2016-10-29 16:12] LABS: ACID FAST SPEC PROCESSING Concentration (.)
== END 2016-10-29 13:17 | disposition home or self-care (01) | DRG 871 ==
LOC: ED 12:04 → 4E 15:27 → EDHOLD 15:27 → 4E 16:31
PROVIDERS: Internal Medicine; Internal Medicine Critical Care Medicine; Internal Medicine Hospice and Palliative Medicine; Registered Nurse
PROC: 0BC48ZZ Extirpation of Matter from Right Upper Lobe Bronchus, Via Natural or Artificial Opening Endoscopic (ICD-10-PCS; principal; 2016-10-28)
PROC: 0BCB8ZZ Extirpation of Matter from Left Lower Lobe Bronchus, Via Natural or Artificial Opening Endoscopic (ICD-10-PCS; 2016-10-28)
PROC: 0BC98ZZ Extirpation of Matter from Lingula Bronchus, Via Natural or Artificial Opening Endoscopic (ICD-10-PCS; 2016-10-28)
PROC: 0BC88ZZ Extirpation of Matter from Left Upper Lobe Bronchus, Via Natural or Artificial Opening Endoscopic (ICD-10-PCS; 2016-10-28)
PROC: 0BC68ZZ Extirpation of Matter from Right Lower Lobe Bronchus, Via Natural or Artificial Opening Endoscopic (ICD-10-PCS; 2016-10-28)
PROC: 0BC58ZZ Extirpation of Matter from Right Middle Lobe Bronchus, Via Natural or Artificial Opening Endoscopic (ICD-10-PCS; 2016-10-28)
DX: A41.9 Sepsis, unspecified organism (principal); J18.9 Pneumonia, unspecified organism; E44.0 Moderate protein-calorie malnutrition; E11.65 Type 2 diabetes mellitus with hyperglycemia; J44.1 Chronic obstructive pulmonary disease with (acute) exacerbation; I10 Essential (primary) hypertension; E78.1 Pure hyperglyceridemia; J20.9 Acute bronchitis, unspecified; E55.9 Vitamin D deficiency, unspecified; K21.9 Gastro-esophageal reflux disease without esophagitis; E83.41 Hypermagnesemia; Z90.49 Acquired absence of other specified parts of digestive tract; Z98.51 Tubal ligation status; Z87.891 Personal history of nicotine dependence; Z82.49 Family history of ischemic heart disease and other diseases of the circulatory system; Z82.5 Family history of asthma and other chronic lower respiratory diseases; Z79.51 Long term (current) use of inhaled steroids; Z79.82 Long term (current) use of aspirin; Z79.1 Long term (current) use of non-steroidal anti-inflammatories (NSAID); Z79.84 Long term (current) use of oral hypoglycemic drugs; Z79.899 Other long term (current) drug therapy; Z68.26 Body mass index [BMI] 26.0-26.9, adult; E83.39 Other disorders of phosphorus metabolism

== ENCOUNTER 2016-11-05 18:14 | Inpatient (IN) | payer OTHER ==
[~2016-11-05] VITALS: Ht 154.9 cm; Wt 63.2 kg
--- NOTE | ~2016-11-05 | CON ---
[place], [place] REPORT OF CONSULTATION NAME: BRANDYN ESTEBAN [facility] #: [id number] UNIT #: [id number] ROOM: 412 DOCTOR: LEE KHOURY MD BIRTHDATE: [birth year] DOS: 11/07/2016 PULMONARY CONSULTATION EVALUATION AND MANAGEMENT REASON FOR CONSULTATION: Assess the patient's symptoms of shortness of breath. HISTORY OF PRESENT ILLNESS: This is a 61-year-old white female. The patient has been known to me. The patient has been admitted to the hospital few weeks a couple of times in this hospital. Last admission, the patient was noted in October 2016. The patient has been noted with acute exacerbation of COPD, acute tracheobronchitis with nonproductive cough, mostly was noted as cough more than exacerbation of COPD. She underwent bronchoscopy for patient on October 28, 2016, shows progressive resolution and improvement in the respiratory symptoms and subsequently discharged home. The patient was noted in usual state of health and presented back to the Emergency Room for the patient on 11/05/2016 as the patient developed symptoms of increased shortness of breath. The shortness of breath has been noted significantly worsened, later noted with severe nonproductive coughing. The patient denies symptoms of chest pain. She does have some symptoms of wheezing as well as with the tightness in the chest. The patient denies any symptoms of hemoptysis. The patient denies any symptoms of any chest trauma, stating use of regular medications, oxygen supplementation for her chronic hypoxic respiratory failure as well. The patient stated that she has moved to a new apartment for the patient and has a new rug for the patient at home and others and since then she has not been doing very well from the respiratory standpoint with recurrence of the respiratory symptoms. REVIEW OF SYSTEMS: CONSTITUTIONAL SYMPTOMS: She does complain of symptoms of fatigue and tiredness. No symptoms of fever or chills. EYES: Denies any burning, redness, or tenderness. EARS, NOSE, THROAT SYMPTOMS: No sore throat, hoarseness, otalgia, or postnasal drainage. CARDIOVASCULAR SYSTEM: Denies anginal pain, edema or pain of the lower extremities. GASTROINTESTINAL SYMPTOMS: Denies any dysphagia, nausea, vomiting, diarrhea, abdominal pain, hematemesis, melena, or hematochezia. SKIN: Denies lesions or rashes. MUSCULOSKELETAL SYMPTOMS: No acute joint pain, redness, or tenderness. CENTRAL NERVOUS SYSTEM: Denies any symptoms of diplopia, dizziness, headache or seizures. Remaining systems were reviewed with the patient, they were noted all negative. PAST MEDICAL HISTORY: This patient was noted history of, 1. Chronic hypoxic respiratory failure. 2. History of centrilobular emphysema as well. 3. Uncomplicated mild persistent bronchial asthma. 4. Hyperlipidemia. 5. Type 2 diabetes mellitus. 6. Generalized anxiety disorder. 7. Osteoporosis. [place], [place] REPORT OF CONSULTATION NAME: BRANDYN ESTEBAN UNIT #: [id number] ROOM: [facility] DOCTOR: MARICHUY ALBRIGHT MD,[facility] BIRTHDATE: [birth year] 8. Vitamin D deficiency. 9. History of glaucoma. 10. Gastroesophageal reflux. 11. Chronic hypoxic respiratory failure, use of oxygen 2 LPM. SURGICAL HISTORY: 1. Cholecystectomy. 2. Surgery of the right eye. 3. Ventral hernia repair. 4. Tubal ligation. 5. Surgery of the foot. 6. Fiberoptic bronchoscopy of the patient that was done for the patient in October 2016, which is therapeutic bronchoscopy. SOCIAL HISTORY: The patient is , has 2 children. Denies history of alcohol use or illicit drug use. Tobacco use noted at age of [age] years old, pack of cigarettes per day until 2008. There was no history of alcohol use or any illicit drug use. FAMILY HISTORY: The patient's father at age of 5555 years old, complication of acute myocardial infarction. Mother at 56 years old, complication related to the COPD. MEDICATIONS: The current administered medication for the patient noted as use, latanoprost eye drops, Mucinex, Lopid, aspirin, citalopram, DuoNeb, Claritin D, Lovenox for DVT prophylaxis, hydroxyzine, Tessalon Perles, Robitussin-AC, Solu-Medrol 60 mg every 8 hours, Levaquin, and other p.r.n. medications including codeine phosphate with Robitussin. DRUG ALLERGY HISTORY: For the patient was noted as no known drug allergies. PHYSICAL EXAMINATION: GENERAL: A 61 years old female for this patient who has been currently awake and alert at this time. The patient's height was recorded 5 feet 1 inch, weight of 139 pounds, BMI 26.3. VITAL SIGNS: Shows temperature 99.3 degrees Fahrenheit, normal temperature, respiratory rate 20-22, heart rate of 120- , blood pressure 139/60-147/71. HEENT: Examination of the head was atraumatic. Eyes nonicterus. NECK: Supple. CARDIOVASCULAR SYSTEM: S1, S2 is audible. LUNGS: The patient was noted with mild to moderate expiratory wheezing, no crackles. ABDOMEN: Soft, nontender. LABORATORY DATA: Lactic acid on admission noted as 3.2 with variable elevation for the patient, maximum lactic acid noted 3.9 and the lower later on noted this morning as 2.6. The arterial blood gas for patient on 11/05, pH of 7.36, pCO2 of 47, pO2 50 on 2 liters nasal cannula. CBC on admission for this patient on 11/05 was noted with normal WBC count, hemoglobin 13, hematocrit normal at 41% and platelet count was also noted normal 239%. CMP: Glucose 174, BUN and [place], [place] REPORT OF CONSULTATION NAME: BRANDYN ESTEBAN UNIT #: [id number] ROOM: [facility] DOCTOR: MARICHUY ALBRIGHT MD,[facility] BIRTHDATE: [birth year] creatinine and other labs for this patient were noted as normal. PT/PTT were noted as normal for the patient on the . BMP this morning, glucose 143, remaining CMP was normal. CBC of the patient this morning was noted as normal CBC. The chest x-ray of the patient that was done for this patient on admission for the patient was reviewed personally on 11/05/2016 of the patient 1 view for this patient was noted as changes of hyperinflation and COPD. The patient had a CTA of the chest done on 11/06/2016 for this patient as well ordered by the primary care attending for this patient. There were no findings of acute pulmonary embolism. There was no pulmonary infiltration for this patient noted changes of severe emphysematous changes were noted in the lungs bilaterally. IMPRESSION: 1. The patient who has been currently admitted to the hospital, recurrence of acute exacerbation of chronic obstructive pulmonary disease may be elicited for the patient with exposure to some kind of unknown allergies at home with the recent move related to the carpets and other irritants. 2. The patient with acute on chronic hypoxic respiratory failure as the patient noted with hypoxia on usual oxygen supplementation of 2 liters nasal cannula from admission. Lactic acidosis for this patient's etiology is unclear, may be related to underlying infection or other etiologies. 3. History of generalized anxiety disorder as well. PLAN OF TREATMENT: The patient has been started on the antibiotics, bronchodilators and the corticosteroids, which will be continued without any changes. Monitor respiratory status closely, symptomatic management of cough will be continued. Further change in the treatment will be done based on the progression of the illness. Try to identify any extraneous factor for this patient resulting in recurrent exacerbation of COPD. The patient stated compliance with the medications that seemed not to be an issue for this patient resulting in recurrence of the exacerbation of COPD. Other supportive plan and management. Usual care. Thanks for allowing me to participate in the care of this patient. LEE BENEDICT MD CM:CONSTR:REPORT OF CONSULTATION 1422 11/08/16 0622 interface
--- NOTE | ~2016-11-05 | PR ---
[place], [place] PROGRESS NOTE NAME: BRANDYN ESTEBAN UNIT #: [id number] ROOM: 412 DOCTOR: LEE KHOURY MD BIRTHDATE: [birth year] DOS: 11/08/2016 PULMONARY PROGRESS NOTE SUBJECTIVE: The patient has been resting on the bed, reduction of the cough has been noted, but resolution noted incomplete. There were no symptoms of chest pain. The coughing has been noted mostly nonproductive. She was noted with the wheezing as well. OBJECTIVE: VITAL SIGNS: Showed normal temperature, respiratory rate 20, heart rate 97, blood pressure 157/73. The intake for this patient was recorded as 2700 mL, output 2950 mL. Pulse oxygen saturation on 2 liters nasal cannula 95% saturation. HEENT: Showed no new change. NECK: Supple. CARDIOVASCULAR SYSTEM: S1, S2 audible. LUNGS: Moderate expiratory wheezing noted with decreased breath sounds bilaterally. ABDOMEN: Soft, nontender. LABORATORY DATA: Urine culture shows light growth of E. coli. Last lactic acid yesterday was noted 3.2. IMPRESSION: The patient with acute tracheobronchitis with exacerbation of chronic obstructive pulmonary disease, coughing and wheezing. The patient noted with gradual and partial reduction and improvement. PLAN OF TREATMENT: Continue antibiotics, bronchodilators, oxygen supplementation. Upon further stability of the patient, consider the patient for halfway facility placement. The patient for IV therapy. At this time, continue the patient's current plan of management without any changes. Usual care. All other supportive therapy, plan of care and management. [place], [place] PROGRESS NOTE NAME: BRANDYN ESTEBAN UNIT #: [id number] ROOM: 412 DOCTOR: LEE KHOURY MD BIRTHDATE: [birth year] LEE BENEDICT MD CM:PNTRANS [id number] LEE ALBRIGHT MD 11/09/16 0133 interface
--- NOTE | ~2016-11-05 | PR ---
[place], [place] PROGRESS NOTE NAME: BRANDYN ESTEBAN UNIT #: [id number] ROOM: 412 DOCTOR: LEE KHOURY MD BIRTHDATE: [birth year] DOS: 11/09/2016 PULMONARY PROGRESS NOTE SUBJECTIVE: She has been noted without any acute respiratory symptoms. The coughing and shortness of breath has been subsiding. There were no symptoms of chest pain or any abdominal pain. She was continued on intravenous steroids, bronchodilators and antibiotics for the patient was also continued. OBJECTIVE: VITAL SIGNS: For the patient, which has been recorded showed the temperature of the patient was noted as normal. The respiratory rate 18, heart rate 96, blood pressure 148/____. Intake for the patient is 1500 mL, the output was 3200 mL approximately. Pulse oxygen saturation on 2 liters nasal cannula 96% saturation. HEENT: Shows no new change. NECK: Supple. CARDIOVASCULAR: S1, S2 audible. LUNGS: Noted without any wheezing or crackles. ABDOMEN: Soft, nontender. EXTREMITIES: Shows no edema. LABORATORY DATA: Culture of the urine was noted only light growth of E. coli isolation. IMPRESSION: The patient with recurrent acute exacerbation of chronic obstructive pulmonary disease with acute tracheobronchitis, currently responding to the intravenous antibiotic for the patient and use of the corticosteroids. PLAN OF TREATMENT: The patient is currently being arranged for outpatient therapy since she does not wish to go [facility] with the intravenous steroids and the antibiotics by the primary care attending. We will monitor the status of the patient post discharge in the office to determine the duration of the treatment. [place], [place] PROGRESS NOTE NAME: BRANDYN ESTEBAN UNIT #: [id number] ROOM: 412 DOCTOR: LEE KHOURY MD BIRTHDATE: [birth year] LEE BENEDICT MD CM:PNTRANS [id number] LEE ALBRIGHT MD 11/10/16 0439 interface
[2016-11-05 18:17] VITALS: BP 158/68
[2016-11-05 18:48] LABS: BASO % 0.2 % (0.0-1.0); HEMATOCRIT 41.1 % (37.0-47.0); IG # 0.1 10*3/uL (0.0-0.1); LYMPH # 1.2 10*3/uL (1.3-4.4); LYMPH % 18.9 % (27.0-41.0); MEAN CELL VOLUME 79.3 fl (81.0-99.0); MEAN CORPUSCULAR HGB 25.1 pg (27.0-31.0); MEAN CORPUSCULAR HGB CONC 31.6 g/dl (33.0-37.0); MEAN PLATELET VOLUME 9.8 fl (9.6-12.3); MONO # 0.5 10*3/uL (0.1-1.0); MONO % 7.1 % (3.0-9.0); NEUT # 4.7 10*3/uL (2.3-7.9); NEUT % 72.7 % (47.0-73.0); PLATELET COUNT AUTOMATED 239 10*3/uL (130-400); RED BLOOD COUNT 5.18 10*6/uL (4.10-5.10); RED CELL DISTRI WIDTH 14.6 % (0-14.5); WHITE BLOOD COUNT 6.5 10*3/uL (4.8-10.8)
[2016-11-05 19:05] LABS: ALBUMIN 3.1 gm/dl (3.1-4.5); ALKALINE PHOSPHATASE 97 U/L (45-117); BILIRUBIN, TOTAL 0.2 mg/dl (0.2-1.0); BUN 22 mg/dl (7-24); CARBON DIOXIDE 29 mmol/L (21-32); CHLORIDE 107 mmol/L (98-107); EST GLOM FILT AFRICAN AMERICAN > 60 ml/min; GLUCOSE 174 mg/dL (65-99); POTASSIUM 4.1 mmol/L (3.5-5.1); SGOT/AST 11 IU/L (3-35); SGPT/ALT 17 U/L (12-78); SODIUM 144 mmol/L (136-145); TOTAL PROTEIN 6.3 gm/dL (6.4-8.2)
[2016-11-05 19:13] LABS: TROPONIN I < 0.015 ng/ml (<0.045)
[2016-11-05 19:15] VITALS: BP 126/86; BP 136/70
[2016-11-05 19:47] LABS: BILIRUBIN NEGATIVE (NEGATIVE); BLOOD NEGATIVE (NEGATIVE); CLARITY SL CLOUDY (CLEAR); COLOR YELLOW (YELLOW); GLUCOSE NEGATIVE (NEGATIVE); KETONE NEGATIVE (NEGATIVE); LEUKO ESTERASE TRACE (NEGATIVE); NITRITE NEGATIVE (NEGATIVE); PROTEIN NEGATIVE (NEGATIVE); SPECIFIC GRAVITY >= 1.030 (1.005-1.030); UROBILINOGEN 0.2 E.U./dl (0.2-1.0)
[2016-11-05 19:51] LABS: RBC 0-2 rbc/hpf (0-2)
[2016-11-05 19:52] LABS: BACTERIA 2+; URINE REFLEX COMMENT YES (NO); WBC 16-20 wbc/hpf (0-5)
[2016-11-05 20:17] LABS: ABG BASE EXCESS 0.6 mmol/L (-2.0-2.0); ABG CO2 CONTENT 27.5 mmol/L (23-27); ABG TEMPERATURE 98.1 F (98.0-99.0); ARTERIAL BLOOD GAS PH 7.36 (7.35-7.45); ARTERIAL BLOOD GAS PO2 50.5 mmHg (80-90)
[2016-11-05 20:42] VITALS: BP 136/70
[2016-11-05 20:45] LABS: LA>2 REFLEX 2 HR DRAW NOW
[2016-11-05 20:59] LABS: LA>2 RFLX FOLLOW UP AT 2 HRS 2.1 mmol/L (0.4-2.0)
[2016-11-05 21:10] VITALS: BP 136/58
[2016-11-05 22:51] LABS: LA>2 REFLEX 4 HR DRAW NOW
[2016-11-06] VITALS: BP 124/58
[2016-11-06 00:25] LABS: CKMB 1.3 ng/ml (0.5-3.6); CPK 39 U/L (26-192)
[2016-11-06 00:26] LABS: TROPONIN I < 0.015 ng/ml (<0.045)
[2016-11-06 06:56] LABS: BASO % 0.2 % (0.0-1.0); HEMATOCRIT 38.5 % (37.0-47.0); HEMOGLOBIN 11.6 g/dl (12.0-16.0); IG # 0.1 10*3/uL (0.0-0.1); LYMPH # 0.9 10*3/uL (1.3-4.4); LYMPH % 14.1 % (27.0-41.0); MEAN CELL VOLUME 81.2 fl (81.0-99.0); MEAN CORPUSCULAR HGB 24.5 pg (27.0-31.0); MEAN CORPUSCULAR HGB CONC 30.1 g/dl (33.0-37.0); MEAN PLATELET VOLUME 9.8 fl (9.6-12.3); MONO # 0.4 10*3/uL (0.1-1.0); MONO % 5.6 % (3.0-9.0); NEUT # 4.9 10*3/uL (2.3-7.9); NEUT % 78.5 % (47.0-73.0); PLATELET COUNT AUTOMATED 198 10*3/uL (130-400); RED BLOOD COUNT 4.74 10*6/uL (4.10-5.10); RED CELL DISTRI WIDTH 14.5 % (0-14.5); WHITE BLOOD COUNT 6.3 10*3/uL (4.8-10.8)
[2016-11-06 07:07] LABS: CKMB 1.7 ng/ml (0.5-3.6); CPK 32 U/L (26-192)
[2016-11-06 07:08] LABS: TROPONIN I < 0.015 ng/ml (<0.045)
[2016-11-06 07:30] LABS: ALBUMIN 2.6 gm/dl (3.1-4.5); ALKALINE PHOSPHATASE 77 U/L (45-117); BILIRUBIN, TOTAL 0.2 mg/dl (0.2-1.0); BUN 15 mg/dl (7-24); CARBON DIOXIDE 31 mmol/L (21-32); CHLORIDE 108 mmol/L (98-107); EST GLOM FILT AFRICAN AMERICAN > 60 ml/min; GLUCOSE 148 mg/dL (65-99); MAGNESIUM 2.2 mg/dL (1.5-2.1); PHOSPHOROUS 3.8 mg/dL (2.5-4.9); POTASSIUM 4.5 mmol/L (3.5-5.1); SGOT/AST 6 IU/L (3-35); SGPT/ALT 15 U/L (12-78); SODIUM 144 mmol/L (136-145); TOTAL PROTEIN 5.7 gm/dL (6.4-8.2)
[2016-11-06 07:54] LABS: PROTHROMBIN TIME 10.4 SECONDS (9.0-12.4)
[2016-11-06 08:00] VITALS: BP 134/54
[2016-11-06 11:23] LABS: LA>2 REFLEX 2 HR DRAW NOW
[2016-11-06 11:45] LABS: LA>2 RFLX FOLLOW UP AT 2 HRS 3.3 mmol/L (0.4-2.0)
[2016-11-06 12:00] VITALS: BP 153/62
[2016-11-06 13:35] LABS: LA>2 REFLEX 4 HR DRAW NOW
[2016-11-06 16:00] VITALS: BP 147/71
[2016-11-06 20:00] VITALS: BP 112/78
[2016-11-07] VITALS: BP 132/55
[2016-11-07 05:57] LABS: BASO % 0.1 % (0.0-1.0); BUN 11 mg/dl (7-24); CARBON DIOXIDE 30 mmol/L (21-32); CHLORIDE 105 mmol/L (98-107); EST GLOM FILT AFRICAN AMERICAN > 60 ml/min; GLUCOSE 143 mg/dL (65-99); HEMATOCRIT 39.5 % (37.0-47.0); HEMOGLOBIN 12.3 g/dl (12.0-16.0); IG # 0.1 10*3/uL (0.0-0.1); LYMPH % 12.1 % (27.0-41.0); MAGNESIUM 2.6 mg/dL (1.5-2.1); MEAN CELL VOLUME 81.8 fl (81.0-99.0); MEAN CORPUSCULAR HGB 25.5 pg (27.0-31.0); MEAN CORPUSCULAR HGB CONC 31.1 g/dl (33.0-37.0); MEAN PLATELET VOLUME 9.6 fl (9.6-12.3); MONO # 0.6 10*3/uL (0.1-1.0); MONO % 6.7 % (3.0-9.0); NEUT # 6.5 10*3/uL (2.3-7.9); NEUT % 79.5 % (47.0-73.0); PHOSPHOROUS 3.7 mg/dL (2.5-4.9); PLATELET COUNT AUTOMATED 229 10*3/uL (130-400); RED BLOOD COUNT 4.83 10*6/uL (4.10-5.10); RED CELL DISTRI WIDTH 14.6 % (0-14.5); SODIUM 143 mmol/L (136-145); WHITE BLOOD COUNT 8.2 10*3/uL (4.8-10.8)
[2016-11-07 07:24] LABS: LA>2 REFLEX 2 HR DRAW NOW
[2016-11-07 07:37] LABS: LA>2 RFLX FOLLOW UP AT 2 HRS 2.6 mmol/L (0.4-2.0)
[2016-11-07 08:00] VITALS: BP 145/65
[2016-11-07 09:29] LABS: LA>2 REFLEX 4 HR DRAW NOW
[2016-11-07 12:00] VITALS: BP 139/60
[2016-11-07 16:00] VITALS: BP 142/62
[2016-11-07 20:12] VITALS: BP 149/68
[2016-11-07 23:57] VITALS: BP 141/72
[2016-11-08 08:00] VITALS: BP 157/73
[2016-11-08 12:00] VITALS: BP 150/72
[2016-11-08 16:00] VITALS: BP 127/61
[2016-11-08 20:00] VITALS: BP 151/72
[2016-11-09] VITALS: BP 142/64
[2016-11-09 08:00] VITALS: BP 148/70
[2016-11-09] MEDS ORDERED: PREDNISONE50 MG PO (11:56)
[2016-11-09] MEDS ORDERED: BENZONATATE100 M1 PO (11:56)
[2016-11-09] MEDS ORDERED: ALAVERT D-12 HO1 T12 PO (11:56)
[2016-11-09] MEDS ORDERED: PREDNISONE10 MG PO (12:03)
[2016-11-09] MEDS ORDERED: HOSPBED DEVI (12:03)
[2016-11-09] MEDS ORDERED: LEVAQUIN500 M2 PO (12:27)
== END 2016-11-09 14:04 | disposition home health service (06) | DRG 871 ==
LOC: ED 18:14 → EDHOLD 19:28 → 4E 19:28 → EDHOLD 11-08 13:29 → 4E 11-08 13:31
PROVIDERS: Hospitalist; Internal Medicine; Internal Medicine Hospice and Palliative Medicine; Registered Nurse
DX: A41.9 Sepsis, unspecified organism (principal); J96.21 Acute and chronic respiratory failure with hypoxia; E43 Unspecified severe protein-calorie malnutrition; E87.2 Acidosis; J18.9 Pneumonia, unspecified organism; Z99.81 Dependence on supplemental oxygen; J44.1 Chronic obstructive pulmonary disease with (acute) exacerbation; J44.0 Chronic obstructive pulmonary disease with (acute) lower respiratory infection; K21.9 Gastro-esophageal reflux disease without esophagitis; E11.65 Type 2 diabetes mellitus with hyperglycemia; I34.0 Nonrheumatic mitral (valve) insufficiency; M81.0 Age-related osteoporosis without current pathological fracture; F41.1 Generalized anxiety disorder; E78.5 Hyperlipidemia, unspecified; H40.9 Unspecified glaucoma; Z98.51 Tubal ligation status; Z90.49 Acquired absence of other specified parts of digestive tract; Z87.891 Personal history of nicotine dependence; Z82.49 Family history of ischemic heart disease and other diseases of the circulatory system; Z83.6 Family history of other diseases of the respiratory system; Z79.82 Long term (current) use of aspirin; Z79.84 Long term (current) use of oral hypoglycemic drugs; Z79.1 Long term (current) use of non-steroidal anti-inflammatories (NSAID); Z79.899 Other long term (current) drug therapy; Z68.26 Body mass index [BMI] 26.0-26.9, adult

== ENCOUNTER → 2017-01-07 | Day surgery (SDC) | payer OTHER ==
[~2017-01-07] VITALS: Ht 154.9 cm; Wt 62.6 kg
[~2017-01-07] MED LIST changes: +ALAVERT D-12 HO1 T12 PO; +BENZONATATE100 M1 PO; +HOSPBED DEVI; +ULTRAM50 MG PO
== END | disposition home or self-care (01) ==
LOC: SDC 12-21 13:15
DX: R13.10 Dysphagia, unspecified (principal); Z53.9 Procedure and treatment not carried out, unspecified reason

== ENCOUNTER 2017-01-14 16:47 | Emergency (ER) | payer OTHER ==
[~2017-01-14] VITALS: Ht 154.9 cm; Wt 62.6 kg
[~2017-01-14 16:47] MED LIST changes: -ULTRAM50 MG PO
[2017-01-14] MEDS ORDERED: ULTRAM50 MG PO (19:27)
== END 2017-01-14 19:28 | disposition home or self-care (01) ==
LOC: ED 16:47
DX: M25.461 Effusion, right knee (principal); Z87.891 Personal history of nicotine dependence; Z79.82 Long term (current) use of aspirin; Z79.899 Other long term (current) drug therapy; Z90.49 Acquired absence of other specified parts of digestive tract; J44.9 Chronic obstructive pulmonary disease, unspecified; Z99.81 Dependence on supplemental oxygen

== ENCOUNTER → 2017-03-07 | Outpatient (CLI) | payer OTHER ==
[~2017-03-07] MED LIST changes: +ULTRAM50 MG PO
== END | disposition home or self-care (01) ==
LOC: ORTHO 02:07
DX: M76.891 Other specified enthesopathies of right lower limb, excluding foot (principal); M25.461 Effusion, right knee

== ENCOUNTER → 2017-06-22 | Day surgery (SDC) | payer OTHER ==
[~2017-06-22] VITALS: Ht 154.9 cm; Wt 65.3 kg
--- NOTE | ~2017-06-22 | O ---
[place], [place] OPERATIVE NOTE NAME: BRANDYN ESTEBAN UNIT #: [id number] ROOM: DOCTOR: FLY JONES MD BIRTHDATE: [birth year] DOS: 06/22/2017 HISTORY OF PRESENT ILLNESS: This is a 62-year-old patient who presented with chief complaint of the solid food dysphagia, undergoing investigation. ALLERGIES: No known medication. FAMILY HISTORY: Noncontributory. PAST SURGICAL HISTORY: Cholecystectomy, tubal ligation, podiatric surgery. PAST MEDICAL HISTORY: Diabetes, hypercholesterolemia. SOCIAL HISTORY: Stopped smoking, nonalcohol consumer. PROCEDURE: Today's procedure part of investigation is panendoscopy plus balloon dilation of esophagus. PREMEDICATION: Versed and Diprivan. SCOPE: Olympus forward-viewing gastroscope Q10 video. REPORT: After putting the patient in left lateral position and application of lubricant to the scope, the scope was introduced; thereafter, under direct visualization, advanced through the length of esophagus without difficulty. Gastric pouch was entered. Upper esophageal benign stricture, hiatal hernia, so far was noticed. Mild gastritis seen. Duodenal bulb, second and third part patent. Balloon size 20 was introduced into gastric pouch to be inflated and swept along the length of the esophagus. Highest resistance at upper esophagus up to size balloon 19. The patient dilated, tolerated the procedure well. IMPRESSION: Benign upper esophageal stricture, small hiatal hernia 2 cm, gastritis of mild degree. PLAN AND DISCUSSION: Resumption of feeding and clinical reassessment. She is already on Prilosec. We are going to continue with Prilosec. She is on inhaler, Ventolin and we will continue with the medications. [place], [place] OPERATIVE NOTE NAME: BRANDYN ESTEBAN UNIT #: [id number] ROOM: DOCTOR: FLY JONES MD BIRTHDATE: [birth year] FLY JONES MD CM:OPRECORD:OPERATIVE NOTE 9 [phone] FLY JONES MD 06/22/17920 interface
[2017-06-22 07:26] VITALS: BP 136/68
[2017-06-22 08:03] VITALS: BP 113/69
[2017-06-22 08:17] VITALS: BP 123/71
[2017-06-22 08:33] VITALS: BP 128/77
== END | disposition home or self-care (01) ==
LOC: SDC 06-16 11:00
DX: K22.2 Esophageal obstruction (principal); K44.9 Diaphragmatic hernia without obstruction or gangrene; K29.70 Gastritis, unspecified, without bleeding; Z90.49 Acquired absence of other specified parts of digestive tract; Z98.51 Tubal ligation status; E11.9 Type 2 diabetes mellitus without complications; E78.00 Pure hypercholesterolemia, unspecified; Z87.891 Personal history of nicotine dependence; K21.9 Gastro-esophageal reflux disease without esophagitis; F41.9 Anxiety disorder, unspecified; F32.9 Major depressive disorder, single episode, unspecified; J44.9 Chronic obstructive pulmonary disease, unspecified; Z79.899 Other long term (current) drug therapy; M19.90 Unspecified osteoarthritis, unspecified site; Z83.3 Family history of diabetes mellitus

== ENCOUNTER → 2017-07-19 | Outpatient (CLI) | payer OTHER ==
[2017-07-19 09:55] LABS: HEMATOCRIT 42.2 % (37.0-47.0); HEMOGLOBIN 13.2 g/dl (12.0-16.0); MEAN CORPUSCULAR HGB 23.4 pg (27.0-31.0); MEAN CORPUSCULAR HGB CONC 31.3 g/dl (33.0-37.0); MEAN PLATELET VOLUME 9.5 fl (9.6-12.3); RED BLOOD COUNT 5.63 10*6/uL (4.10-5.10); RED CELL DISTRI WIDTH 14.5 % (0-14.5); WHITE BLOOD COUNT 15.7 10*3/uL (4.8-10.8)
[2017-07-19 10:13] LABS: ALBUMIN 3.4 gm/dl (3.1-4.5); ALKALINE PHOSPHATASE 112 U/L (45-117); BUN 20 mg/dl (7-24); CHLORIDE 101 mmol/L (98-107); CHOLESTEROL 168 mg/dL (<200); CREATININE 0.84 mg/dL (0.55-1.02); HDL CHOLESTEROL 45 mg/dl (40-60); LDL CHOLESTEROL 82 mg/dL (9-159); POTASSIUM 3.9 mmol/L (3.5-5.1); SGOT/AST 7 IU/L (3-35); SGPT/ALT 17 U/L (12-78); SODIUM 141 mmol/L (136-145); TOTAL PROTEIN 7.6 gm/dL (6.4-8.2); TRIGLYCERIDES 205 mg/dl (<150); VLDL CHOLESTEROL 41 mg/dL (6-40)
== END | disposition home or self-care (01) ==
LOC: LAB 09:22
PROVIDERS: Registered Nurse Flight
DX: J40 Bronchitis, not specified as acute or chronic (principal); E78.5 Hyperlipidemia, unspecified; J44.9 Chronic obstructive pulmonary disease, unspecified; E11.65 Type 2 diabetes mellitus with hyperglycemia

== ENCOUNTER 2017-07-24 10:59 | Emergency (ER) | payer OTHER ==
[~2017-07-24] VITALS: Ht 154.9 cm; Wt 63.5 kg
--- NOTE | ~2017-07-24 | EKG ---
[place], [place] ELECTROCARDIOGRAM REPORT NAME: BRANDYN ESTEBAN UNIT #: [id number] ROOM: DOCTOR: MARICHUY ALBRIGHT MD,LEE BIRTHDATE: [birth year] DOS: 07/24/2017 TIME: Done at 11:31 a.m. Normal sinus rhythm were noted for this patient. There were no changes of acute ischemia. LEE BENEDICT MD CM:EKGRPT:ELECTROCARDIOGRAM REPORT 1725 1739 LEE ALBRIGHT MD
[2017-07-24 11:45] LABS: BASO % 0.2 % (0.0-1.0); EOS # 0.3 10*3/uL (0.0-0.4); EOS % 3.3 % (1.0-4.0); HEMATOCRIT 42.1 % (37.0-47.0); HEMOGLOBIN 12.6 g/dl (12.0-16.0); LYMPH # 1.6 10*3/uL (1.3-4.4); LYMPH % 17.5 % (27.0-41.0); MEAN CELL VOLUME 77.4 fl (81.0-99.0); MEAN CORPUSCULAR HGB 23.2 pg (27.0-31.0); MEAN CORPUSCULAR HGB CONC 29.9 g/dl (33.0-37.0); MEAN PLATELET VOLUME 9.9 fl (9.6-12.3); MONO # 1.2 10*3/uL (0.1-1.0); MONO % 13.1 % (3.0-9.0); NEUT # 5.9 10*3/uL (2.3-7.9); NEUT % 65.1 % (47.0-73.0); PLATELET COUNT AUTOMATED 265 10*3/uL (130-400); RED BLOOD COUNT 5.44 10*6/uL (4.10-5.10); RED CELL DISTRI WIDTH 14.7 % (0-14.5); WHITE BLOOD COUNT 9.1 10*3/uL (4.8-10.8)
[2017-07-24 12:06] LABS: ALBUMIN 3.3 gm/dl (3.1-4.5); ALKALINE PHOSPHATASE 117 U/L (45-117); BUN 13 mg/dl (7-24); CHLORIDE 102 mmol/L (98-107); CREATININE 0.97 mg/dL (0.55-1.02); POTASSIUM 4.9 mmol/L (3.5-5.1); SGOT/AST 11 IU/L (3-35); SGPT/ALT 12 U/L (12-78); SODIUM 139 mmol/L (136-145); TOTAL PROTEIN 7.5 gm/dL (6.4-8.2)
[2017-07-24 12:08] LABS: TROPONIN I < 0.015 ng/ml (<0.045)
[2017-07-24] MEDS ORDERED: LEVAQUIN750 M1 PO (14:02)
[2017-07-24] MEDS ORDERED: NORCO 5-325 TA1 EACH PO (14:02)
== END 2017-07-24 14:59 | disposition home or self-care (01) ==
LOC: ED 10:59
PROVIDERS: Physician Assistant
DX: J18.9 Pneumonia, unspecified organism (principal); Z79.899 Other long term (current) drug therapy; Z79.84 Long term (current) use of oral hypoglycemic drugs; Z79.82 Long term (current) use of aspirin; Z90.49 Acquired absence of other specified parts of digestive tract; Z98.51 Tubal ligation status; Z87.891 Personal history of nicotine dependence

== ENCOUNTER → 2017-08-23 | Outpatient (CLI) | payer OTHER ==
[~2017-08-23] MED LIST changes: +NORCO 5-325 TA1 EACH PO
[2017-08-23 08:19] LABS: HEMATOCRIT 42.8 % (37.0-47.0); HEMOGLOBIN 13.2 g/dl (12.0-16.0); MEAN CELL VOLUME 76.2 fl (81.0-99.0); MEAN CORPUSCULAR HGB 23.5 pg (27.0-31.0); MEAN CORPUSCULAR HGB CONC 30.8 g/dl (33.0-37.0); MEAN PLATELET VOLUME 9.7 fl (9.6-12.3); RED BLOOD COUNT 5.62 10*6/uL (4.10-5.10); RED CELL DISTRI WIDTH 14.5 % (0-14.5)
[2017-08-23 08:50] LABS: ALBUMIN 3.5 gm/dl (3.1-4.5); ALKALINE PHOSPHATASE 110 U/L (45-117); BUN 11 mg/dl (7-24); CHLORIDE 102 mmol/L (98-107); CHOLESTEROL 188 mg/dL (<200); CREATININE 0.89 mg/dL (0.55-1.02); HDL CHOLESTEROL 38 mg/dl (40-60); LDL CHOLESTEROL 106 mg/dL (9-159); SGOT/AST 12 IU/L (3-35); SGPT/ALT 17 U/L (12-78); SODIUM 140 mmol/L (136-145); TOTAL PROTEIN 7.5 gm/dL (6.4-8.2); TRIGLYCERIDES 218 mg/dl (<150); VLDL CHOLESTEROL 44 mg/dL (6-40)
== END | disposition home or self-care (01) ==
LOC: LAB 07:37
PROVIDERS: Registered Nurse Flight
DX: Z12.31 Encounter for screening mammogram for malignant neoplasm of breast (principal); E78.5 Hyperlipidemia, unspecified; E11.65 Type 2 diabetes mellitus with hyperglycemia; Z99.81 Dependence on supplemental oxygen

== ENCOUNTER → 2017-09-01 | Outpatient (CLI) | payer OTHER | END | disposition home or self-care (01) | LOC: MAMMO 07:04 | DX: Z12.31 Encounter for screening mammogram for malignant neoplasm of breast (principal) ==

== ENCOUNTER 2017-10-19 12:12 | Inpatient (IN) | payer OTHER ==
[2017-10-19] VITALS (7 sets, daily range): BP systolic 122–170; BP diastolic 55–77
[~2017-10-19] VITALS: Ht 154.9 cm; Wt 65.6 kg
--- NOTE | ~2017-10-19 | O ---
[place], [place] OPERATIVE NOTE NAME: BRANDYN ESTEBAN [facility] #: [id number] UNIT #: [id number] ROOM: 412 DOCTOR: ROBERT STOKESFLY BIRTHDATE: [birth year] DOS: 10/21/2017 HISTORY OF PRESENT ILLNESS: A 62-year-old patient, who presented with epigastric distress along with atypical chest pain, shortness of breath, known history of COPD, diabetes mellitus. The patient has been worked up and was considered to have abnormal radiologic finding with concern about esophagus, mildly tortuous distal esophagus, distal esophagitis, hepatomegaly, moderate hepatic steatosis, splenomegaly, all has been concerned and we have been asked in view of the epigastric distress and abnormal CTA in regards to definition of esophagus for endoscopic assessment. White blood cell was 9, H and H of 13 and 43, differential was within normal limits. INR 0.9. Comprehensive metabolic panel, GFR greater than 60. Magnesium 2.3. Electrolyte balance, liver function test normal. Lipase was 204. Troponin normal. Labs and records were reviewed. PAST MEDICAL HISTORY: Associated diabetes mellitus, hyperlipidemia, COPD, osteoporosis, gastroesophageal reflux. PAST SURGICAL HISTORY: Status post cholecystectomy, ventral hernia repair, tubal ligation, podiatric surgery. SOCIAL HISTORY: Nonsmoker, nonalcohol consumer at the present time; however, she used to smoke until 2008. FAMILY HISTORY: Noncontributory. MEDICATION: List has been reviewed. ALLERGIES: No known medication. PROCEDURE: Today's procedure part of investigation is panendoscopy plus biopsy. PREMEDICATION: Versed and Diprivan. SCOPE: Olympus forward-viewing gastroscope Q10 video. REPORT: After putting the patient in left lateral position and application of lubricant to the scope, the scope was introduced. Thereafter, under direct visualization, advanced through the length of esophagus without difficulty. Esophagus carefully examined. There is no esophageal thickening. There are no distal esophageal ulcerations or pathology of concern; however, there is a small cup of hiatal hernia. She has about 1-1/2 cm to 2 cm was noticed. Gastric pouch was entered. Mild gastritis seen. Antral biopsy obtained for H. pylori. Duodenal bulb, second and third part within normal limits. The patient extubated, tolerated the procedure well. IMPRESSION: Small hiatal hernia, gastritis, status post biopsy. PLAN AND DISCUSSION: We are going to keep this patient on Protonix 40 mg daily. Gaviscon 1 at bedtime and soft diet, ____ type and clinical reassessment. As far as the upper GI tract, findings are manageable conservatively. [place], [place] OPERATIVE NOTE NAME: BRANDYN ESTEBAN UNIT #: [id number] ROOM: [facility] DOCTOR: FLY JONES MD BIRTHDATE: [birth year] FLY JONES MD CM:OPRECORD:OPERATIVE NOTE [id number] PRISCILLA JONES MD 10/21/17 1534 interface
--- NOTE | ~2017-10-19 | EKG ---
[place], [place] ELECTROCARDIOGRAM REPORT NAME: BRANDYN ESTEBAN UNIT #: [id number] ROOM: 412 DOCTOR: MARICHUY ALBRIGHT MD,LEE BIRTHDATE: [birth year] DOS: 10/19/2017 Electrocardiogram done on 10/19/2017 at 6:48 p.m. Electrocardiogram shows normal sinus rhythm. Heart rate of 94 beats per minute. The electrocardiogram for the patient was noted, otherwise normal. LEE BENEDICT MD CM:EKGRPT:ELECTROCARDIOGRAM REPORT 1423 1448 LEE ALBRIGHT MD
--- NOTE | ~2017-10-19 | CON ---
[place], [place] REPORT OF CONSULTATION NAME: BRANDYN ESTEBAN [facility] #: [id number] UNIT #: [id number] ROOM: 412 DOCTOR: LEE KHOURY MD BIRTHDATE: [birth year] DOS: 10/20/2017 CONSULTATION REQUESTED BY: Hospitalist service. REASON FOR CONSULTATION: For assessment of exacerbation of COPD. HISTORY OF PRESENT ILLNESS: This is a 62-year-old white female patient who presented to the hospital and admitted under the hospitalist service on 10/19/2017. The patient presented to the hospital and has reported symptoms of having pain in the abdomen with shortness of breath and chest pain, which she described in the retrosternal area. The patient was also reporting symptoms of headache with that. The shortness of breath has been noted [id number] exertion. Denies symptoms of significant wheezing. The patient denies symptoms of hemoptysis with that. She denies symptoms of active wheezing. She has been assessed in the hospital and does admitted to the hospital from yesterday for further assessment of the current acute symptoms. For the chest pain, the patient has been reported essentially diffuse on the chest without radiation, worsening with taking deep breath from scale of 1-10 up to 10 and sharp at times. REVIEW OF SYSTEMS: CONSTITUTIONAL: Fatigue and tiredness reported by the patient without any symptoms of fever or chills. EYES: Denies any burning, redness, or tenderness. EARS, NOSE, THROAT SYMPTOMS: Denies sore throat, hoarseness, or otalgia, postnasal drainage. CARDIOVASCULAR: Denies any pain, which were typical for angina. Current pain described as noted, nonspecific pain, which was present diffusely in the chest. There were no symptoms of palpitation. There were no syncopal episodes. Denies symptoms of pain of the lower extremities without any edema. GASTROINTESTINAL: The patient noted pain in the upper portion of the abdomen at times. There were no symptoms of nausea, vomiting, hematemesis, melena or hematochezia. SKIN: Denies abnormal rashes or lesions. CENTRAL NERVOUS SYSTEM: The patient denied symptoms of dizziness, headache, diplopia, syncopal episodes. Remaining systems were reviewed with the patient, they were noted all negative. PAST MEDICAL HISTORY: 1. Chronic hypoxic respiratory failure. 2. Central lobular emphysema. 3. Uncomplicated mild persistent bronchial asthma. 4. Hyperlipidemia. 5. Type 2 diabetes mellitus. 6. General anxiety disorder. 7. Osteoporosis. 8. Vitamin D deficiency. 9. Glaucoma. 10. Gastroesophageal reflux. [place], [place] REPORT OF CONSULTATION NAME: BRANDYN ESTEBAN UNIT #: [id number] ROOM: [facility] DOCTOR: NORMA KHOURY MDM BIRTHDATE: [birth year] 11. Chronic hypoxic respiratory failure, use of 2 liters noted. Continue oxygen supplementation early portion of the history as mentioned on this patient. PAST SURGICAL HISTORY: 1. Cholecystectomy. 2. Surgery on the right eye. 3. Ventral hernia repair. 4. Tubal ligation. 5. Therapeutic bronchoscopy in 2017. 6. Surgery of the foot. SOCIAL HISTORY: She is , has 2 children, lives at home. Denies history of alcohol use, illicit drug use. Tobacco use noted from the age of [age] years old, a pack of cigarettes per day until 2008. There was no history of alcohol use, illicit drug use. There was no past history of exposure and inhalation to any dust or chemicals at work. FAMILY HISTORY: The patient's father already at the age of 55 with complication of acute myocardial infarction. Mother at the age of 56 with complications of COPD. MEDICATIONS: Administered for the patient were noted use of aspirin, Rexulti, citalopram, Lovenox for DVT prophylaxis, omeprazole, gabapentin, Mucinex, IV Solu-Medrol, Dulera, gemfibrozil, IV Rocephin, Zithromax, and other p.r.n. medications administered. DRUG ALLERGY HISTORY: The patient was noted as no known drug allergies. PHYSICAL EXAMINATION: GENERAL: A 62-year-old female who has been currently sitting on the chair in her room. She has not been showing any signs of respiratory distress. Her height was recorded on admission as 5 feet 1 inch, weight 144 pounds, BMI 27 with the nursing staff. VITAL SIGNS: Normal temperature, respiratory rate 20, heart rate of 115-88, blood pressure 149/71-135/64. Pulse oxygen saturation on 2 liters of cannula of 97% saturation. LUNGS: Noted [id number] decreased breath sounds without any wheezing or crackles. ABDOMEN: Noted soft, mild obesity. Bowel sounds present without tenderness. EXTREMITIES: The patient noted without any acute edema, clubbing or cyanosis. MUSCULOSKELETAL: Noted without any acute deformities. SKIN: No lesions or rashes. LABORATORY DATA: Review of the lab for the patient for this consultation. PT/PTT yesterday noted normal. CBC yesterday on admission essentially noted as normal. The CMP yesterday on admission noted as normal as well. Influenza A and B, nasal washing antigen negative from yesterday. Troponin 3 sets in the last 24 hours were normal. CMP of the patient this morning, glucose 320, BUN normal, creatinine was normal. Remaining LFTs and electrolytes normal. CBC [place], [place] REPORT OF CONSULTATION NAME: BRANDYN ESTEBAN UNIT #: [id number] ROOM: 412 DOCTOR: LEE KHOURY MD BIRTHDATE: [birth year] today: WBC count 15.2, hemoglobin 11.1, hematocrit 37.7, platelet count of 256,000, 95% segmented neutrophils. The chest x-ray of the patient that was done, 1 view was reviewed for the patient personally on 10/19/2017 was noted, change of COPD. The patient had a CTA of the chest that was completed on this patient yesterday ordered by the primary care attending was reviewed for this patient personally showing there was no evidence of pulmonary embolism. Small benign nodule was noted for the patient the right minor fissure most likely intraparenchymal lymph node. Scattered areas of scarring for the patient was noted with changes of COPD, the remaining lungs. There was no abnormal pulmonary nodules and infiltration was noted. Patulous distal esophagus of the patient with fluid filled was also reported with possibility of esophagitis. Mild splenomegaly was also reported by the radiologist. IMPRESSION: 1. The patient who has been currently admitted to the hospital with gastrointestinal symptoms and chest pain for the patient may be related to gastroesophageal reflux. 2. Chronic obstructive pulmonary disease for the patient may be ongoing some evidence of acute exacerbation at this time responding to treatment very well. 3. Atypical chest pain, related to the GI problem. 4. Gastroesophageal reflux, other etiologies for further assessment. 5. Past history of nicotine abuse. 6. Stable chronic hypoxic respiratory failure as well. 7. Hyperglycemia secondary to corticosteroids, coverage for the hyperglycemia of the patient, continue hyperglycemia after reduction the corticosteroids recommended. PLAN OF MANAGEMENT: At this time, the patient has been receiving Solu-Medrol 60 mg b.i.d., which will be changed to 40 mg daily since has not been significant wheezing noted. Steroid-induced hyperglycemia was also noted for the patient which has also improved with changing with the reduction of the corticosteroid doses. GI workup warranted with upper GI as inspection to be done to exclude any malignancy or other abdominal process in the distal esophageal area of the patient resulting in chest pain. Other supportive therapy, plan of management will be continued as previously. Bronchodilator will be continued. Use of antibiotic may not be necessary for the patient at this time, may consider discontinuation of the antibiotics. Other supportive therapy, plan of management and care plan. Additional treatment changes will be recommended for the patient based on the further assessment for this patient during this hospitalization. Continue abstinence from the tobacco was recommended. [place], [place] REPORT OF CONSULTATION NAME: BRANDYN ESTEBAN UNIT #: [id number] ROOM: 412 DOCTOR: LEE KHOURY MD BIRTHDATE: [birth year] LEE BENEDICT MD CM:CONSTR:REPORT OF CONSULTATION 1242 10/21/17 0241 interface
--- NOTE | ~2017-10-19 | EKG ---
[place], [place] ELECTROCARDIOGRAM REPORT [facility]AN [id number] UNIT #: [id number] ROOM: 412 DOCTOR: MARICHUY ALBRIGHT MD,LEE BIRTHDATE: [birth year] DOS: 10/19/2017 Electrocardiogram done on 10/19/2017, at 1217 p.m. Normal sinus rhythm noted, 87 beats per minute. Possible left atrial enlargement. The patient would be considered. LEE BENEDICT MD CM:EKGRPT:ELECTROCARDIOGRAM REPORT 1424 1451 LEE ALBRIGHT MD
--- NOTE | ~2017-10-19 | PR ---
[place], [place] PROGRESS NOTE NAME: BRANDYN ESTEBAN [facility] #: [id number] UNIT #: [id number] ROOM: 412 DOCTOR: MARICHUY ALBRIGHT MD,LEE BIRTHDATE: [birth year] DOS: 10/21/2017 SUBJECTIVE: The patient was noted comfortable at this time without any acute distress. She has not been noting symptoms of chest pain or abdominal pain or shortness of breath at rest. She was planned for EGD to be done today for assessment of the upper GI tract for the patient with current abnormal finding noted on the CT scan. This morning, the patient was seen, she was resting comfortably, sitting on the chair. OBJECTIVE: VITAL SIGNS: Normal temperature, respiratory rate 16, heart rate 86, blood pressure 137/70. The pulse oxygen saturation of the patient noted 2 liters nasal cannula 98% saturation. HEENT: Head was atraumatic. Eyes nonicterus. NECK: Supple. CARDIOVASCULAR: S1, S2 is audible. LUNGS: Noted without any wheezing or crackles. Moderate decreased breath sounds bilaterally. ABDOMEN: Soft, nontender. IMPRESSION: 1. The patient who has been currently treated in this hospital for the medical management of chest pain, abdominal pain, and gastroesophageal reflux. 2. Chronic obstructive pulmonary disease with early acute exacerbation as well. 3. Chronic hypoxic respiratory failure. PLAN OF TREATMENT: Proceed with the GI workup. No immediate change in treatment will be necessary if you have any treatment as the patient changes will be made after the bronchoscopy. LEE BENEDICT MD CM:PNTRANS 1341 [id number] LEE ALBRIGHT MD 10/21/17 2157 interface
--- NOTE | ~2017-10-19 | EKG ---
[place], [place] ELECTROCARDIOGRAM REPORT NAME: BRANDYN ESTEBAN UNIT #: [id number] ROOM: 412 DOCTOR: LEE KHOURY MD BIRTHDATE: [birth year] DOS: 10/19/2017 Electrocardiogram done on 10/19/2017 at 3:35 p.m. Normal sinus rhythm with heart rate 87 beats per minute. Normal electrocardiogram was noted. LEE BENEDICT MD CM:EKGRPT:ELECTROCARDIOGRAM REPORT 1422 1446 LEE ALBRIGHT MD
[2017-10-19] MEDS ORDERED: CYCLOBENZAPRINE5 M3 PO (12:22)
[2017-10-19] MEDS ORDERED: CALCIUM 500 +1 EAC3 PO (12:22)
[2017-10-19] MEDS ORDERED: NEURONTIN300 MG PO (12:23)
[2017-10-19 12:31] LABS: BASO # 0.1 10*3/uL (0.0-0.1); BASO % 0.5 % (0.0-1.0); EOS # 0.4 10*3/uL (0.0-0.4); EOS % 4.6 % (1.0-4.0); HEMATOCRIT 43.9 % (37.0-47.0); HEMOGLOBIN 13.3 g/dl (12.0-16.0); LYMPH # 1.7 10*3/uL (1.3-4.4); LYMPH % 18.3 % (27.0-41.0); MEAN CORPUSCULAR HGB CONC 30.3 g/dl (33.0-37.0); MEAN PLATELET VOLUME 9.5 fl (9.6-12.3); MONO # 0.8 10*3/uL (0.1-1.0); MONO % 8.3 % (3.0-9.0); NEUT # 6.3 10*3/uL (2.3-7.9); NEUT % 67.3 % (47.0-73.0); PLATELET COUNT AUTOMATED 273 10*3/uL (130-400); RED BLOOD COUNT 5.78 10*6/uL (4.10-5.10); RED CELL DISTRI WIDTH 14.8 % (0-14.5); WHITE BLOOD COUNT 9.4 10*3/uL (4.8-10.8)
[2017-10-19 12:40] LABS: ACT PARTIAL THROMBO TIME 23.5 SECONDS (20.8-31.5); INTERNATIONAL NORM RATIO 0.9 (2.0-3.5)
[2017-10-19 12:47] LABS: ALBUMIN 3.8 gm/dl (3.1-4.5); ALKALINE PHOSPHATASE 125 U/L (45-117); BUN 13 mg/dl (7-24); CHLORIDE 99 mmol/L (98-107); CREATININE 0.88 mg/dL (0.55-1.02); POTASSIUM 4.1 mmol/L (3.5-5.1); SGOT/AST 17 IU/L (3-35); SGPT/ALT 20 U/L (12-78); SODIUM 138 mmol/L (136-145); TOTAL PROTEIN 8.1 gm/dL (6.4-8.2)
[2017-10-19 12:50] LABS: TROPONIN I < 0.015 ng/ml (<0.045)
[2017-10-19] MEDS ORDERED: BREO ELLIPTA 11 EACH INH (15:05)
[2017-10-19] MEDS ORDERED: REXULTI2 MG PO (15:06)
[2017-10-19] MEDS ORDERED: MELATONIN10 M2 PO (15:09)
[2017-10-19] MEDS ORDERED: PRILOSEC20 M1 PO (15:12)
[2017-10-20] VITALS: BP 149/71
[2017-10-20 06:47] LABS: ALBUMIN 3.2 gm/dl (3.1-4.5); BUN 17 mg/dl (7-24); CHLORIDE 103 mmol/L (98-107); CREATININE 0.99 mg/dL (0.55-1.02); PHOSPHOROUS 3.4 mg/dL (2.5-4.9); POTASSIUM 4.4 mmol/L (3.5-5.1); SGOT/AST 5 IU/L (3-35); SGPT/ALT 17 U/L (12-78); SODIUM 136 mmol/L (136-145)
[2017-10-20 06:52] LABS: MEAN CELL VOLUME 76.6 fl (81.0-99.0); MEAN CORPUSCULAR HGB 22.6 pg (27.0-31.0); MEAN CORPUSCULAR HGB CONC 29.4 g/dl (33.0-37.0); MEAN PLATELET VOLUME 9.9 fl (9.6-12.3); PLATELET COUNT AUTOMATED 256 10*3/uL (130-400); RED BLOOD COUNT 4.92 10*6/uL (4.10-5.10); RED CELL DISTRI WIDTH 14.6 % (0-14.5); WHITE BLOOD COUNT 15.2 10*3/uL (4.8-10.8)
[2017-10-20 06:58] LABS: ALKALINE PHOSPHATASE 107 U/L (45-117); HEMATOCRIT 37.7 % (37.0-47.0); HEMOGLOBIN 11.1 g/dl (12.0-16.0); TOTAL PROTEIN 6.9 gm/dL (6.4-8.2)
[2017-10-20 07:44] LABS: TOTAL CELLS COUNTED 100 #CELLS
[2017-10-20 07:45] LABS: MICROCYTOSIS SLIGHT; PLATELET SUFFICIENCY NORMAL (NORMAL)
[2017-10-20 08:00] VITALS: BP 138/62
[2017-10-20 12:00] VITALS: BP 135/60
[2017-10-20 16:00] VITALS: BP 114/48
[2017-10-20 20:00] VITALS: BP 133/64
[2017-10-21] VITALS (9 sets, daily range): BP systolic 119–159; BP diastolic 59–83
[2017-10-21 06:06] LABS: BASO % 0.2 % (0.0-1.0); EOS # 0.1 10*3/uL (0.0-0.4); EOS % 0.3 % (1.0-4.0); HEMATOCRIT 39.3 % (37.0-47.0); HEMOGLOBIN 11.4 g/dl (12.0-16.0); LYMPH # 1.9 10*3/uL (1.3-4.4); LYMPH % 12.4 % (27.0-41.0); MEAN CELL VOLUME 78.3 fl (81.0-99.0); MEAN CORPUSCULAR HGB 22.7 pg (27.0-31.0); MEAN PLATELET VOLUME 9.9 fl (9.6-12.3); MONO # 0.9 10*3/uL (0.1-1.0); MONO % 6.1 % (3.0-9.0); NEUT % 79.9 % (47.0-73.0); PLATELET COUNT AUTOMATED 298 10*3/uL (130-400); RED BLOOD COUNT 5.02 10*6/uL (4.10-5.10)
[2017-10-22] VITALS: BP 135/67
[2017-10-22 08:00] VITALS: BP 148/79
[2017-10-22] MEDS ORDERED: PRILOSEC20 M1 PO (10:50)
[2017-10-22] MEDS ORDERED: Anusol Hc,Anuco25 MG R (10:50)
[2017-10-22] MEDS ORDERED: PREDNISONE10 MG PO (10:51)
[2017-10-22] MEDS ORDERED: DOXYCYCLINE100 M3 PO (10:51)
== END 2017-10-22 11:20 | disposition home health service (06) | DRG 871 ==
LOC: ED 12:12 → 4E 14:19 → EDHOLD 14:19 → 4E 14:33
PROVIDERS: Emergency Medicine; Internal Medicine
PROC: 0DB78ZX Excision of Stomach, Pylorus, Via Natural or Artificial Opening Endoscopic, Diagnostic (ICD-10-PCS; principal; 2017-10-21)
DX: A41.9 Sepsis, unspecified organism (principal); J18.9 Pneumonia, unspecified organism; J96.11 Chronic respiratory failure with hypoxia; E11.65 Type 2 diabetes mellitus with hyperglycemia; Z99.81 Dependence on supplemental oxygen; K76.0 Fatty (change of) liver, not elsewhere classified; E83.41 Hypermagnesemia; R16.1 Splenomegaly, not elsewhere classified; J44.1 Chronic obstructive pulmonary disease with (acute) exacerbation; J44.0 Chronic obstructive pulmonary disease with (acute) lower respiratory infection; J98.11 Atelectasis; R79.82 Elevated C-reactive protein (CRP); I10 Essential (primary) hypertension; K21.9 Gastro-esophageal reflux disease without esophagitis; M81.0 Age-related osteoporosis without current pathological fracture; M94.0 Chondrocostal junction syndrome [Tietze]; R74.8 Abnormal levels of other serum enzymes; R71.8 Other abnormality of red blood cells; E78.1 Pure hyperglyceridemia; E78.2 Mixed hyperlipidemia; K44.9 Diaphragmatic hernia without obstruction or gangrene; G47.00 Insomnia, unspecified; M79.672 Pain in left foot; J45.30 Mild persistent asthma, uncomplicated; F41.1 Generalized anxiety disorder; K20.9 Esophagitis, unspecified; H40.9 Unspecified glaucoma; T38.0X5A Adverse effect of glucocorticoids and synthetic analogues, initial encounter; Z79.899 Other long term (current) drug therapy; Z79.84 Long term (current) use of oral hypoglycemic drugs; Z98.51 Tubal ligation status; Z90.49 Acquired absence of other specified parts of digestive tract; Z87.891 Personal history of nicotine dependence; Z83.3 Family history of diabetes mellitus; Z82.49 Family history of ischemic heart disease and other diseases of the circulatory system; Z82.5 Family history of asthma and other chronic lower respiratory diseases; Z79.82 Long term (current) use of aspirin; Y92.89 Other specified places as the place of occurrence of the external cause

== ENCOUNTER → 2017-12-07 | Day surgery (SDC) | payer OTHER ==
[~2017-12-07] MED LIST changes: +Anusol Hc,Anuco25 MG R; +BREO ELLIPTA 11 EACH INH; +CALCIUM 500 +1 EAC3 PO; +CYCLOBENZAPRINE5 M3 PO; +MELATONIN10 M2 PO; +NEURONTIN300 MG PO; +PRILOSEC20 M1 PO; +REXULTI2 MG PO
--- NOTE | ~2017-12-07 | O ---
[place], [place] OPERATIVE NOTE NAME: BRANDYN ESTEBAN UNIT #: [id number] ROOM: DOCTOR: FLY JONES MD BIRTHDATE: [birth year] DOS: 12/07/2017 HISTORY OF PRESENT ILLNESS: A 62-year-old patient who presented with chief complaint of rectal pain, abdominal pain, undergoing investigation. PAST SURGICAL HISTORY: Tubal ligation, cholecystectomy, hernia repair. PAST MEDICAL HISTORY: Diabetes, hyperglycemia, COPD. ALLERGIES: No known medication. FAMILY HISTORY: Noncontributory. PROCEDURE: Today's procedure part of investigation is colonoscopy. PREMEDICATION: Versed and propofol. SCOPE: Olympus UrbanBound colonoscope 10L video. REPORT: After putting the patient in left lateral position and application of lubricant to the scope, the scope was introduced. Thereafter, under direct visualization, advanced through the length of colon without difficulty. Severe diverticulosis was noticed. Base of cecum was explored, upper endoscope was identified. The ileocecal valve was defined. Scope was gradually withdrawn back to the rectum. Small hemorrhoids were noticed. No rectal fissure was identified. No perirectal dermatitis of acute concern was noticed. The patient was extubated, tolerated the procedure well. IMPRESSION: Severe diverticulosis, small hemorrhoids. PLAN AND DISCUSSION: Since she is experiencing perirectal pruritus and itching, I would use first a Neosporin ointment to be used for 10 days and if she continues after the 10 days with perirectal itching, then use a course of Lamisil ointment for 2 weeks and supportive management otherwise for hemorrhoids. Furthermore, a small sessile polypoid lesion from sigmoid colon with piecemeal polypectomy removed that I suspect to be perhaps adenomatous. Follow-up colonoscopy in 10 years unless patient has symptoms for which follow-up should be sooner. [place], [place] OPERATIVE NOTE NAME: BRANDYN ESTEBAN UNIT #: [id number] ROOM: DOCTOR: FLY JONES MD BIRTHDATE: [birth year] FLY JONES MD CM:OPRECORD:OPERATIVE NOTE 1137 [id number] FLY JONES MD 01/02/18 1746 interface
[2017-12-07 08:58] VITALS: BP 107/74
[2017-12-07 11:25] VITALS: BP 157/80
[2017-12-07 11:40] VITALS: BP 148/79
[2017-12-07 11:55] VITALS: BP 133/72
== END | disposition home or self-care (01) ==
LOC: SDC 12-02 08:00
DX: K57.30 Diverticulosis of large intestine without perforation or abscess without bleeding (principal); K63.5 Polyp of colon; K64.8 Other hemorrhoids; E11.9 Type 2 diabetes mellitus without complications; F41.9 Anxiety disorder, unspecified; F32.9 Major depressive disorder, single episode, unspecified; Z87.891 Personal history of nicotine dependence; Z90.49 Acquired absence of other specified parts of digestive tract; Z98.51 Tubal ligation status; Z98.890 Other specified postprocedural states; J44.9 Chronic obstructive pulmonary disease, unspecified; K21.9 Gastro-esophageal reflux disease without esophagitis; Z79.899 Other long term (current) drug therapy; E78.00 Pure hypercholesterolemia, unspecified; M19.90 Unspecified osteoarthritis, unspecified site; Z83.3 Family history of diabetes mellitus

== ENCOUNTER 2018-03-13 09:34 | Emergency (ER) | payer OTHER ==
[~2018-03-13] VITALS: Ht 154.9 cm; Wt 71.7 kg
--- NOTE | ~2018-03-13 | EKG ---
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
[2018-03-13 10:03] LABS: BASO # 0.1 10*3/uL (0.0-0.1); BASO % 0.7 % (0.0-1.0); EOS # 0.3 10*3/uL (0.0-0.4); EOS % 3.9 % (1.0-4.0); HEMATOCRIT 41.1 % (37.0-47.0); HEMOGLOBIN 12.2 g/dl (12.0-16.0); LYMPH # 1.5 10*3/uL (1.3-4.4); LYMPH % 18.4 % (27.0-41.0); MEAN CELL VOLUME 78.3 fl (81.0-99.0); MEAN CORPUSCULAR HGB 23.2 pg (27.0-31.0); MEAN CORPUSCULAR HGB CONC 29.7 g/dl (33.0-37.0); MEAN PLATELET VOLUME 9.8 fl (9.6-12.3); MONO # 0.8 10*3/uL (0.1-1.0); MONO % 9.9 % (3.0-9.0); NEUT # 5.3 10*3/uL (2.3-7.9); NEUT % 65.3 % (47.0-73.0); PLATELET COUNT AUTOMATED 283 10*3/uL (130-400); RED BLOOD COUNT 5.25 10*6/uL (4.10-5.10); RED CELL DISTRI WIDTH 13.7 % (0-14.5); WHITE BLOOD COUNT 8.2 10*3/uL (4.8-10.8)
[2018-03-13 10:20] LABS: ALBUMIN 3.6 gm/dl (3.1-4.5); ALKALINE PHOSPHATASE 116 U/L (45-117); BUN 11 mg/dl (7-24); CHLORIDE 107 mmol/L (98-107); CREATININE 0.86 mg/dL (0.55-1.02); POTASSIUM 4.4 mmol/L (3.5-5.1); SGOT/AST 15 IU/L (3-35); SGPT/ALT 15 U/L (12-78); SODIUM 141 mmol/L (136-145); TOTAL PROTEIN 7.6 gm/dL (6.4-8.2)
[2018-03-13 10:29] LABS: TROPONIN I < 0.015 ng/ml (<0.045)
[2018-03-13 11:17] LABS: BILIRUBIN NEGATIVE (NEGATIVE); BLOOD NEGATIVE (NEGATIVE); CLARITY CLEAR (CLEAR); COLOR STRAW (YELLOW); GLUCOSE NEGATIVE (NEGATIVE); KETONE NEGATIVE (NEGATIVE); LEUKO ESTERASE TRACE (NEGATIVE); NITRITE NEGATIVE (NEGATIVE); SPECIFIC GRAVITY <= 1.005 (1.005-1.030); UROBILINOGEN 0.2 E.U./dl (0.2-1.0)
[2018-03-13] MEDS ORDERED: KETOROLAC10 MG PO (11:29)
[2018-03-13 11:36] LABS: BACTERIA TRACE
[2018-03-13] MEDS ORDERED: CEPHALEXIN500 M1 PO (11:53)
== END 2018-03-13 12:05 | disposition home or self-care (01) ==
LOC: ED 09:34
PROVIDERS: Nurse Practitioner
DX: S23.41XA Sprain of ribs, initial encounter (principal); N30.00 Acute cystitis without hematuria; J44.9 Chronic obstructive pulmonary disease, unspecified; Z79.899 Other long term (current) drug therapy; Z79.82 Long term (current) use of aspirin; Z98.51 Tubal ligation status; Z90.49 Acquired absence of other specified parts of digestive tract; Z98.890 Other specified postprocedural states; Z87.891 Personal history of nicotine dependence; X58.XXXA Exposure to other specified factors, initial encounter; Y93.89 Activity, other specified; Y92.89 Other specified places as the place of occurrence of the external cause; Y99.8 Other external cause status

== ENCOUNTER → 2018-04-06 | Outpatient (CLI) | payer MEDICAID ==
[~2018-04-06] MED LIST changes: +CEPHALEXIN500 M1 PO; +KETOROLAC10 MG PO
[2018-04-07 11:02] LABS: CREATININE,URINE 73.1 mg/dL (Not Estab.)
== END | disposition home or self-care (01) ==
LOC: LAB 14:11
PROVIDERS: Registered Nurse Flight
DX: E11.65 Type 2 diabetes mellitus with hyperglycemia (principal); I10 Essential (primary) hypertension

== ENCOUNTER → 2018-05-15 | Outpatient (CLI) | payer MEDICAID ==
[2018-05-15 10:12] LABS: HEMATOCRIT 42.6 % (37.0-47.0); MEAN CELL VOLUME 76.9 fl (81.0-99.0); MEAN CORPUSCULAR HGB 23.5 pg (27.0-31.0); MEAN CORPUSCULAR HGB CONC 30.5 g/dl (33.0-37.0); MEAN PLATELET VOLUME 9.9 fl (9.6-12.3); RED BLOOD COUNT 5.54 10*6/uL (4.10-5.10); RED CELL DISTRI WIDTH 15.1 % (0-14.5); WHITE BLOOD COUNT 9.4 10*3/uL (4.8-10.8)
[2018-05-15 10:43] LABS: CHLORIDE 105 mmol/L (98-107); POTASSIUM 4.5 mmol/L (3.5-5.1); SODIUM 142 mmol/L (136-145)
[2018-05-15 10:56] LABS: ALBUMIN 3.3 gm/dl (3.1-4.5); ALKALINE PHOSPHATASE 122 U/L (45-117); BUN 15 mg/dl (7-24); CHOLESTEROL 188 mg/dL (<200); CREATININE 0.86 mg/dL (0.55-1.02); HDL CHOLESTEROL 31 mg/dl (40-60); LDL CHOLESTEROL 121 mg/dL (9-159); SGOT/AST 11 IU/L (3-35); SGPT/ALT 13 U/L (12-78); TOTAL PROTEIN 7.6 gm/dL (6.4-8.2); TRIGLYCERIDES 179 mg/dl (<150); VLDL CHOLESTEROL 36 mg/dL (6-40)
== END | disposition home or self-care (01) ==
LOC: LAB 09:49
PROVIDERS: Registered Nurse Flight
DX: E11.65 Type 2 diabetes mellitus with hyperglycemia (principal); E78.5 Hyperlipidemia, unspecified

== ENCOUNTER → 2018-07-13 | Outpatient (CLI) | payer MEDICAID ==
[~2018-07-13] MED LIST changes: +AVPAK AZITHROM250 M1 PO; +KEFLEX500 M1 PO; +PROPRANOLOL HCL20 M1 PO; +SPIRIVA18 MCG PO; +VIBRAMYCIN100 MG PO; +VITAMIN D50000 UNIT PO
[2018-07-13 16:36] LABS: HEMATOCRIT 44.5 % (37.0-47.0); HEMOGLOBIN 13.3 g/dl (12.0-16.0); MEAN CELL VOLUME 76.7 fl (81.0-99.0); MEAN CORPUSCULAR HGB 22.9 pg (27.0-31.0); MEAN CORPUSCULAR HGB CONC 29.9 g/dl (33.0-37.0); MEAN PLATELET VOLUME 9.7 fl (9.6-12.3); RED BLOOD COUNT 5.8 10*6/uL (4.10-5.10); WHITE BLOOD COUNT 9.5 10*3/uL (4.8-10.8)
[2018-07-13 16:49] LABS: ALBUMIN 3.4 gm/dl (3.1-4.5); ALKALINE PHOSPHATASE 122 U/L (45-117); BUN 19 mg/dl (7-24); CHLORIDE 101 mmol/L (98-107); CREATININE 1.03 mg/dL (0.55-1.02); POTASSIUM 3.8 mmol/L (3.5-5.1); SGOT/AST 30 IU/L (3-35); SGPT/ALT 23 U/L (12-78); SODIUM 138 mmol/L (136-145)
== END | disposition home or self-care (01) ==
LOC: LAB 15:52
PROVIDERS: Registered Nurse Flight
DX: R10.30 Lower abdominal pain, unspecified (principal)

== ENCOUNTER 2018-08-28 11:26 | Inpatient (IN) | payer MEDICAID ==
[~2018-08-28] VITALS: Ht 154.9 cm; Wt 67.8 kg
--- NOTE | ~2018-08-28 | CON ---
[place], [place] REPORT OF CONSULTATION NAME: BRANDYN ESTEBAN [facility] #: [id number] UNIT #: [id number] ROOM: 505 DOCTOR: LEE KHOURY MD BIRTHDATE: [birth year] DOS: 08/29/2018 PULMONARY CONSULTATION, EVALUATION AND MANAGEMENT CONSULTATION REQUESTED BY: Hospitalist service. REASON FOR CONSULTATION: For assessment of acute exacerbation of COPD. HISTORY OF PRESENT ILLNESS: This is a 63-year-old white female who has been known to me from the past. The patient has a known history of chronic hypoxic respiratory failure with COPD and uncomplicated mild persistent bronchial asthma. She has been admitted to the hospital under the care of the hospitalist service on the date of 08/28/2018. The patient developed acute cough, which has been noted with minimal sputum expectoration in the past 3 days. Symptoms associated with headache as well as shortness of breath. She was also reported with symptoms of wheezing as well. The symptoms had been noted with gradual worsening requiring assessment in the hospital. The patient admitted to the hospital yesterday for further medical management. She reported reduction in respiratory symptoms from yesterday at this time, but the resolution was noted incomplete. Denies symptoms of fever or chills at this time. Reported history of the patient at home with some fever. The cough has been subsiding. There were no symptoms of chest pain. Tightness of the chest reported on admission was also noted to be better in the last 24 hours. REVIEW OF SYSTEMS: CONSTITUTIONAL SYMPTOMS: Denies symptoms of fever or chills at the present time, but noted with symptoms of fever or chills at home. EYES: Denies burning, redness, or tenderness. EARS, NOSE, AND THROAT SYMPTOMS: The patient was noted with symptoms of postnasal drainage. She complained of scratchy throat on admission. GASTROINTESTINAL: Denies symptoms of epistaxis or facial tenderness or pain. Denies any hearing loss. CARDIOVASCULAR SYSTEM: Denies angina pain, edema, or pain in the lower extremity. GASTROINTESTINAL SYMPTOMS: Denies dysphagia, nausea, vomiting, diarrhea, abdominal pain, hematemesis, melena, or hematochezia. GENITOURINARY SYMPTOMS: Denies dysuria, suprapubic pain, or hematuria. MUSCULOSKELETAL SYMPTOMS: Denies acute joint pain, redness, or tenderness. SKIN: No lesions or rashes reported. CENTRAL NERVOUS SYSTEM: Denies dizziness or diplopia. Noted with headache with current acute illness seemed to be better. Remaining systems were reviewed. They were noted all negative. PAST MEDICAL HISTORY: 1. COPD. 2. Uncomplicated moderate persistent bronchial asthma, chronic hypoxic respiratory failure. 3. Type 2 diabetes mellitus. 4. Hyperlipidemia. [place], [place] REPORT OF CONSULTATION NAME: BRANDYN ESTEBAN UNIT #: [id number] ROOM: [facility] DOCTOR: MARICHUY ALBRIGHT MDLEE BIRTHDATE: [birth year] 5. Generalized anxiety disorder. 6. Osteoporosis. 7. Glaucoma. 8. Gastroesophageal reflux disease. PAST SURGICAL HISTORY: 1. Cholecystectomy. 2. Right eye surgery. 3. Ventral abdominal hernia repair. 4. Tubal ligation. 5. Therapeutic bronchoscopy. 6. Surgery of the foot. SOCIAL HISTORY: The patient is , has 2 children, living at home. Tobacco use noted at age of [age] years old, 1 pack of cigarettes per day, which were discontinued in 2008. There was no history of alcohol use or illicit drug use. FAMILY HISTORY: The patient's father at the age 55 of complication of coronary artery disease, myocardial infarction. Mother at age 53 of complications of COPD. CURRENT MEDICATIONS: Administered were noted use of Fosamax, Rexulti, aspirin, citalopram, Lovenox for DVT thrombosis prophylaxis, propranolol, gabapentin, latanoprost eye drops, Solu-Medrol 40 mg b.i.d., omeprazole, gemfibrozil, Pulmicort Respules, DuoNeb, Rocephin, and Zithromax. DRUG ALLERGIES: Noted as no known drug allergies. PHYSICAL EXAMINATION: GENERAL: This is a 63-year-old female patient, currently resting comfortably, sitting on the bed this morning of assessment. Height of 5 feet 1 inch, weight of 149 pounds, BMI of 28.2. VITAL SIGNS: For the patient, which were recorded showed the temperature noted as normal, respiratory rate 18-20, heart rate of 80-73, blood pressure 130/57-130/62. Pulse oxygen saturation recorded on 2 liters nasal cannula 98% saturation. HEENT: Shows head was atraumatic. Eyes nonicterus. NECK: Supple. CARDIOVASCULAR SYSTEM: S1, S2 is audible. LUNGS: The patient was noted without any crackles or rhonchi. Mild expiratory wheezing bilaterally. ABDOMEN: Soft, nontender, bowel sounds present. EXTREMITIES: Without any acute edema. MUSCULOSKELETAL: Without any acute deformities. CENTRAL NERVOUS SYSTEM: The patient's cranial nerves 2-12 intact. LABORATORY DATA: CBC that was done yesterday in the Emergency Room was noted essentially normal CBC. CMP that was done yesterday; BUN 11, creatinine 1.33. Remaining CMP normal. Troponin normal. CBC this morning; WBC count 12.2. CMP [place], [place] REPORT OF CONSULTATION NAME: BRANDYN ESTEBAN UNIT #: [id number] ROOM: 505 DOCTOR: LEE KHOURY MD BIRTHDATE: [birth year] this morning; glucose 270, BUN and creatinine was normal. Phosphorus 2.4, calcium was 8.1, which was not corrected with the albumin. One view chest x-ray that was done in the Emergency Room was noted without any acute pulmonary infiltration, change of COPD. IMPRESSION: 1. The patient with acute exacerbation of chronic obstructive pulmonary disease. 2. Chronic hypoxic respiratory failure, most likely viral infection, would be considered as a trigger. 3. The patient with history of chronic hypoxic respiratory failure and other medical illnesses. 4. Acute kidney injury, most likely intravascular volume depletion as well. 5. Hyperglycemia secondary to corticosteroids. PLAN OF TREATMENT: With current improvement in the respiratory status in the last 24 hours with use of the steroids, bronchodilator, the patient could be discharged home. Bronchodilator tapering dose of prednisone for the patient was advised. Continue oxygen supplementation. Outpatient followup as previously made would be kept by the patient. Other therapy, plan of management, care plan and treatment as well as expected management and discharge planning was discussed with Yessenia Wright who is taking care of the patient today as an attending. LEE BENEDICT MD CM:CONSTR:REPORT OF CONSULTATION 1120 08/30/18 0015 interface
--- NOTE | ~2018-08-28 | EKG ---
[place], [place] ELECTROCARDIOGRAM REPORT NAME: BRANDYN ESTEBAN UNIT #: [id number] ROOM: 505 DOCTOR: JESÚS DRAFT REPORT BIRTHDATE: [address] 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
[~2018-08-28 11:26] MED LIST changes: -AVPAK AZITHROM250 M1 PO; -KEFLEX500 M1 PO; -PROPRANOLOL HCL20 M1 PO; -SPIRIVA18 MCG PO; -VIBRAMYCIN100 MG PO; -VITAMIN D50000 UNIT PO
[2018-08-28 11:27] VITALS: BP 128/48
[2018-08-28 12:00] VITALS: BP 130/57
[2018-08-28 12:10] VITALS: BP 76/00
[2018-08-28 12:11] LABS: BASO # 0.1 10*3/uL (0.0-0.1); BASO % 0.6 % (0.0-1.0); EOS # 0.4 10*3/uL (0.0-0.4); EOS % 3.7 % (1.0-4.0); HEMATOCRIT 41.9 % (37.0-47.0); HEMOGLOBIN 12.6 g/dl (12.0-16.0); LYMPH % 20.7 % (27.0-41.0); MEAN CELL VOLUME 77.4 fl (81.0-99.0); MEAN CORPUSCULAR HGB 23.3 pg (27.0-31.0); MEAN CORPUSCULAR HGB CONC 30.1 g/dl (33.0-37.0); MEAN PLATELET VOLUME 9.8 fl (9.6-12.3); MONO # 0.9 10*3/uL (0.1-1.0); MONO % 9.9 % (3.0-9.0); NEUT % 63.3 % (47.0-73.0); PLATELET COUNT AUTOMATED 260 10*3/uL (130-400); RED BLOOD COUNT 5.41 10*6/uL (4.10-5.10); RED CELL DISTRI WIDTH 14.7 % (0-14.5); WHITE BLOOD COUNT 9.5 10*3/uL (4.8-10.8)
[2018-08-28 12:29] LABS: ALBUMIN 3.4 gm/dl (3.1-4.5); ALKALINE PHOSPHATASE 138 U/L (45-117); BUN 11 mg/dl (7-24); CHLORIDE 105 mmol/L (98-107); CREATININE 1.33 mg/dL (0.55-1.02); POTASSIUM 4.6 mmol/L (3.5-5.1); SGOT/AST 19 IU/L (3-35); SGPT/ALT 19 U/L (12-78); SODIUM 139 mmol/L (136-145); TOTAL PROTEIN 7.5 gm/dL (6.4-8.2)
[2018-08-28 12:32] LABS: TROPONIN I < 0.015 ng/ml (<0.045)
[2018-08-28] MEDS ORDERED: SPIRIVA18 MCG PO (13:19)
[2018-08-28] MEDS ORDERED: PROPRANOLOL HCL20 M1 PO (13:20)
--- NOTE | 2018-08-28 13:30 | NUR ---
A 63, admitted to 5E, under the services of STEPAN De Paz DO with a diagnosis of AC COPD EXACERBATION. Chief complaint is SOB. Patient arrived via bed from ER. Monitor applied. Initial assessment completed. Vital signs taken and recorded. STEPAN DE PAZ DO notified of admission to the unit. Orders received. See assessment for past medical history, medications and allergies. Patient and/or family oriented to unit. Clothing/patient valuable form completed. SERVANDO BROOKS
--- NOTE | 2018-08-28 13:30 | NUR ---
PER ED NURSE, MEDICATIONS ARE VERIFIED.
--- NOTE | 2018-08-28 14:10 | NUR ---
PATIENT MEDICATED WITH TYLENOL FOR C/O HEADACHE. WILL MONITOR
--- NOTE | 2018-08-28 14:14 | NUR ---
SHELLEY INFORMED THAT MEDICATIONS ARE VERIFIED.
--- NOTE | 2018-08-28 14:40 | NUR ---
PHYSICAL THERAPY Nursing screen received. PT orders also received. Thank you. Christen Everett,PT
--- NOTE | 2018-08-28 15:10 | NUR ---
TYLENOL EFFECTIVE FOR HEADACHE
[2018-08-28 16:00] VITALS: BP 112/57
--- NOTE | 2018-08-28 16:41 | NUR ---
AWARE OF CONSULT. NO NEW ORDERS AT THIS TIME.
--- NOTE | 2018-08-28 19:20 | NUR ---
PRN ORDER FOR TYLENOL REQUESTED AND RECIEVED FOR C/O HEADACHE. WILL MONITOR FOR EFFECTIVENESS.
--- NOTE | 2018-08-28 19:50 | NUR ---
REPORT OBTAINED FROM RN. INITIAL ASSESSMENT COMPLETED. PT IS RESTING IN BED AT THIS TIME WITH C/O A HEADACHE. SHE STATES SHE HAD TYLENOL EARLIER AND IT HELPED, SHE REQUESTED TYLENOL AGAIN AND RECIEVED IT. RESPIRATIONS ARE EASY AND NONLABORED ON 2L NC. SHE IS NSR ON THE MONITOR WITH A HEART RATE IN THE 80'S. SHE VOICES NO OTHER COMPLAINTS AT THIS TIME. WILL CONTINUE TO MONITOR PT.
[2018-08-28 20:00] VITALS: BP 123/59
[2018-08-28 20:52] VITALS: BP 130/72
--- NOTE | 2018-08-28 21:20 | NUR ---
24 HR chart check completed.
[2018-08-29] VITALS: BP 130/62
[2018-08-29 06:21] LABS: BASO % 0.2 % (0.0-1.0); EOS % 0.1 % (1.0-4.0); HEMOGLOBIN 11.7 g/dl (12.0-16.0); LYMPH % 8.3 % (27.0-41.0); MEAN CORPUSCULAR HGB 23.4 pg (27.0-31.0); MEAN PLATELET VOLUME 10.2 fl (9.6-12.3); MONO # 0.4 10*3/uL (0.1-1.0); MONO % 2.9 % (3.0-9.0); NEUT # 10.6 10*3/uL (2.3-7.9); NEUT % 86.5 % (47.0-73.0); PLATELET COUNT AUTOMATED 228 10*3/uL (130-400); RED CELL DISTRI WIDTH 14.3 % (0-14.5); WHITE BLOOD COUNT 12.2 10*3/uL (4.8-10.8)
[2018-08-29 06:57] LABS: ALBUMIN 3.1 gm/dl (3.1-4.5); ALKALINE PHOSPHATASE 115 U/L (45-117); BUN 17 mg/dl (7-24); CHLORIDE 105 mmol/L (98-107); CHOLESTEROL 168 mg/dL (<200); CREATININE 0.83 mg/dL (0.55-1.02); FREE T4 0.91 ng/dl (0.76-1.46); HDL CHOLESTEROL 33 mg/dl (40-60); LDL CHOLESTEROL 101 mg/dL (9-159); PHOSPHOROUS 2.4 mg/dL (2.5-4.9); POTASSIUM 4.4 mmol/L (3.5-5.1); SGOT/AST 9 IU/L (3-35); SGPT/ALT 16 U/L (12-78); SODIUM 137 mmol/L (136-145); TOTAL PROTEIN 7.2 gm/dL (6.4-8.2); TRIGLYCERIDES 168 mg/dl (<150); VLDL CHOLESTEROL 34 mg/dL (6-40)
[2018-08-29 07:02] LABS: THYROID STIM HORMONE (HS) 0.402 uIU/ml (0.358-4.75)
[2018-08-29 07:18] LABS: VITAMIN D, 25-HYDROXY 25.2 ng/mL (30-100)
[2018-08-29] MEDS ORDERED: PREDNISONE10 MG PO (10:33)
[2018-08-29] MEDS ORDERED: AVPAK AZITHROM250 M1 PO (10:33)
[2018-08-29] MEDS ORDERED: VITAMIN D50000 UNIT PO (10:37)
--- NOTE | 2018-08-29 11:03 | NUR ---
Hog Dropper in to talk to patient. Patient states lives at HOME with ALONE. There are NO steps in the home. Physician: JEFFRY GALLARDO [facility]acy: [facility] Home health services: AIDS [facility]OUGH [facility] Patient's level of ADLs: INDEPENDENT Patient has working utilities: YES DME: NONE Follow-up physician's appointment after d/c: WILL BE MADE BY HOSPITALIST NURSE DIRECTOR ON DISCHARGE Does patient want to access PORTAL?: NO Discharge plan PT STATES SHE LIVES AT HOME ALONE AND IS INDEPENDENT IN CARE. STATES SHE HAS AIDS FROM [facility] WHO COME 3 TIMES A WEEK. DENIES ANY OTHER NEEDS AT THIS TIME. WILL CONTINUE TO FOLLOW. STATES SHE WILL HAVE A RIDE HOME ON DISCHARGE.. ANNI RAINEY
--- NOTE | 2018-08-29 11:38 | NUR ---
Nursing screen and Occupational Therapy referral received. Thank you. Elo Colindres OTR/l
--- NOTE | 2018-08-29 12:55 | NUR ---
PT DISCHARGED AT THIS TIME. IV REMOVED AND PRESSURE DRESSING APPLIED. HEART MONITOR RETURNED TO FLOOR. VERBALIZED UNDERSTANDING OF DISCHARGE INSTRUCTIONS.
== END 2018-08-29 12:55 | disposition home or self-care (01) | DRG 190 ==
LOC: ED 11:26 → EDHOLD 12:58 → 5E 12:58
PROVIDERS: Nurse Practitioner Family; Registered Nurse; ADMIT Internal Medicine
DX: J44.1 Chronic obstructive pulmonary disease with (acute) exacerbation (principal); N17.0 Acute kidney failure with tubular necrosis; E44.0 Moderate protein-calorie malnutrition; J96.11 Chronic respiratory failure with hypoxia; K21.9 Gastro-esophageal reflux disease without esophagitis; F41.1 Generalized anxiety disorder; E55.9 Vitamin D deficiency, unspecified; R74.8 Abnormal levels of other serum enzymes; R71.8 Other abnormality of red blood cells; E78.2 Mixed hyperlipidemia; M81.0 Age-related osteoporosis without current pathological fracture; J45.40 Moderate persistent asthma, uncomplicated; E78.1 Pure hyperglyceridemia; I10 Essential (primary) hypertension; E11.65 Type 2 diabetes mellitus with hyperglycemia; T38.0X5A Adverse effect of glucocorticoids and synthetic analogues, initial encounter; Y92.89 Other specified places as the place of occurrence of the external cause; Z99.81 Dependence on supplemental oxygen; Z87.440 Personal history of urinary (tract) infections; Z87.01 Personal history of pneumonia (recurrent); Z98.51 Tubal ligation status; Z90.49 Acquired absence of other specified parts of digestive tract; Z87.891 Personal history of nicotine dependence; Z82.49 Family history of ischemic heart disease and other diseases of the circulatory system; Z82.5 Family history of asthma and other chronic lower respiratory diseases; Z83.3 Family history of diabetes mellitus; Z79.82 Long term (current) use of aspirin; Z79.899 Other long term (current) drug therapy; Z68.28 Body mass index [BMI] 28.0-28.9, adult

== ENCOUNTER → 2018-11-28 | Outpatient (CLI) | payer MEDICAID ==
[~2018-11-28] MED LIST changes: +AVPAK AZITHROM250 M1 PO; +CEFUROXIME AXE500 MG PO; +KEFLEX500 M1 PO; +PROPRANOLOL HCL20 M1 PO; +SPIRIVA18 MCG PO; +VIBRAMYCIN100 MG PO; +VITAMIN D50000 UNIT PO
== END | disposition home or self-care (01) ==
LOC: US 09:07
DX: K76.0 Fatty (change of) liver, not elsewhere classified (principal); Z90.710 Acquired absence of both cervix and uterus

== ENCOUNTER 2018-12-31 20:39 | Emergency (ER) | payer MEDICAID ==
[~2018-12-31] VITALS: Wt 66.2 kg
--- NOTE | ~2018-12-31 | EKG ---
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
[~2018-12-31 20:39] MED LIST changes: -CEFUROXIME AXE500 MG PO; -KEFLEX500 M1 PO; -VIBRAMYCIN100 MG PO
[2018-12-31 23:06] LABS: BASO # 0.1 10*3/uL (0.0-0.1); BASO % 0.6 % (0.0-1.0); EOS # 0.3 10*3/uL (0.0-0.4); EOS % 3.4 % (1.0-4.0); HEMATOCRIT 38.7 % (37.0-47.0); HEMOGLOBIN 11.6 g/dl (12.0-16.0); LYMPH # 1.7 10*3/uL (1.3-4.4); LYMPH % 19.5 % (27.0-41.0); MEAN CELL VOLUME 79.6 fl (81.0-99.0); MEAN CORPUSCULAR HGB 23.9 pg (27.0-31.0); MONO # 0.9 10*3/uL (0.1-1.0); MONO % 10.1 % (3.0-9.0); NEUT # 5.5 10*3/uL (2.3-7.9); NEUT % 64.6 % (47.0-73.0); PLATELET COUNT AUTOMATED 229 10*3/uL (130-400); RED BLOOD COUNT 4.86 10*6/uL (4.10-5.10); RED CELL DISTRI WIDTH 14.2 % (0-14.5); WHITE BLOOD COUNT 8.6 10*3/uL (4.8-10.8)
[2018-12-31 23:22] LABS: ALBUMIN 3.2 gm/dl (3.1-4.5); ALKALINE PHOSPHATASE 90 U/L (45-117); BUN 10 mg/dl (7-24); CHLORIDE 106 mmol/L (98-107); CREATININE 0.83 mg/dL (0.55-1.02); POTASSIUM 4.4 mmol/L (3.5-5.1); SGOT/AST 12 IU/L (3-35); SGPT/ALT 13 U/L (12-78); SODIUM 142 mmol/L (136-145); TOTAL PROTEIN 6.6 gm/dL (6.4-8.2)
[2018-12-31 23:23] LABS: TROPONIN I < 0.015 ng/ml (<0.045)
[2019-01-01 00:08] LABS: BILIRUBIN NEGATIVE (NEGATIVE); BLOOD NEGATIVE (NEGATIVE); CLARITY CLEAR (CLEAR); COLOR YELLOW (YELLOW); GLUCOSE NEGATIVE (NEGATIVE); KETONE NEGATIVE (NEGATIVE); LEUKO ESTERASE 1+ (NEGATIVE); NITRITE NEGATIVE (NEGATIVE); PH 7.5 (5.0-9.0); UROBILINOGEN 0.2 E.U./dl (0.2-1.0)
[2019-01-01 00:24] LABS: BACTERIA TRACE
[2019-01-01] MEDS ORDERED: AUGMENTIN 875875 MG PO (03:13)
== END 2019-01-01 03:15 | disposition home or self-care (01) ==
LOC: ED 20:39
PROVIDERS: Emergency Medicine
DX: H66.91 Otitis media, unspecified, right ear (principal); R42 Dizziness and giddiness; J44.9 Chronic obstructive pulmonary disease, unspecified; E11.9 Type 2 diabetes mellitus without complications; K21.9 Gastro-esophageal reflux disease without esophagitis; I10 Essential (primary) hypertension; E78.1 Pure hyperglyceridemia; M81.0 Age-related osteoporosis without current pathological fracture; Z79.2 Long term (current) use of antibiotics; Z79.899 Other long term (current) drug therapy; Z79.84 Long term (current) use of oral hypoglycemic drugs; Z79.82 Long term (current) use of aspirin; Z90.49 Acquired absence of other specified parts of digestive tract; Z87.891 Personal history of nicotine dependence

== ENCOUNTER 2019-01-23 08:05 | Emergency (ER) | payer MEDICAID ==
[~2019-01-23] VITALS: Ht 154.9 cm; Wt 63.5 kg
--- NOTE | ~2019-01-23 | EKG ---
[place], [place] ELECTROCARDIOGRAM REPORT NAME: BRANDYN ESTEBAN UNIT #: [id number] ROOM: DOCTOR: EPIPHANY DRAFT REPORT BIRTHDATE: [birth year] [facility] Test Date: 2019-01-23 Test Time: 09:06:06 Pat Name: BRANDYN ESTEBAN Department: Room: Gender: F Bumper Operator: Dorys He : 1955 Requested By: SIGRID HOPE Order Number: [id number] Reading MD: Silvestre Veras Measurements Intervals [place] Rate: 76 P: 69 [place]: 142 QRS: 66 QRSD: 93 T: 63 QT: 398 QTc: 448 Interpretive Statements Sinus rhythm Abnormal R-wave progression, early transition Baseline wander in lead(s) V4 Compared to ECG 12/31/2018 22:11:31 No significant changes Electronically Signed On 01-23-2019 8:58:45 PDT by Silvestre Veras CM:EKGRPT:ELECTROCARDIOGRAM REPORT [id number] SIGRID ESPINOSA DRAFT REPORT SIGRID HOPE MD
[2019-01-23 09:01] LABS: BASO # 0.1 10*3/uL (0.0-0.1); BASO % 0.7 % (0.0-1.0); EOS # 0.4 10*3/uL (0.0-0.4); EOS % 3.6 % (1.0-4.0); HEMATOCRIT 39.8 % (37.0-47.0); HEMOGLOBIN 11.9 g/dl (12.0-16.0); LYMPH # 1.6 10*3/uL (1.3-4.4); LYMPH % 16.1 % (27.0-41.0); MEAN CELL VOLUME 79.8 fl (81.0-99.0); MEAN CORPUSCULAR HGB 23.8 pg (27.0-31.0); MEAN CORPUSCULAR HGB CONC 29.9 g/dl (33.0-37.0); MEAN PLATELET VOLUME 10.2 fl (9.6-12.3); MONO # 0.9 10*3/uL (0.1-1.0); NEUT # 6.8 10*3/uL (2.3-7.9); NEUT % 69.5 % (47.0-73.0); PLATELET COUNT AUTOMATED 248 10*3/uL (130-400); RED BLOOD COUNT 4.99 10*6/uL (4.10-5.10); RED CELL DISTRI WIDTH 14.1 % (0-14.5); WHITE BLOOD COUNT 9.8 10*3/uL (4.8-10.8)
[2019-01-23 09:18] LABS: BUN 11 mg/dl (7-24); CHLORIDE 107 mmol/L (98-107); CREATININE 0.86 mg/dL (0.55-1.02); POTASSIUM 4.3 mmol/L (3.5-5.1); SODIUM 140 mmol/L (136-145)
[2019-01-23 09:21] LABS: TROPONIN I < 0.015 ng/ml (<0.045)
[2019-01-23] MEDS ORDERED: VIBRAMYCIN100 MG PO (10:11)
[2019-01-23] MEDS ORDERED: PREDNISONE50 MG PO (10:11)
== END 2019-01-23 10:25 | disposition home or self-care (01) ==
LOC: ED 08:05
PROVIDERS: Emergency Medicine
DX: J44.1 Chronic obstructive pulmonary disease with (acute) exacerbation (principal); E11.9 Type 2 diabetes mellitus without complications; K21.9 Gastro-esophageal reflux disease without esophagitis; I10 Essential (primary) hypertension; E78.1 Pure hyperglyceridemia; M81.0 Age-related osteoporosis without current pathological fracture; Z87.891 Personal history of nicotine dependence; Z90.49 Acquired absence of other specified parts of digestive tract; Z79.2 Long term (current) use of antibiotics; Z79.82 Long term (current) use of aspirin; Z79.899 Other long term (current) drug therapy

== ENCOUNTER → 2019-02-12 | Outpatient (CLI) | payer MEDICAID ==
[~2019-02-12] MED LIST changes: +KEFLEX500 M1 PO; +VIBRAMYCIN100 MG PO
[2019-02-12 09:12] LABS: HEMATOCRIT 42.5 % (37.0-47.0); HEMOGLOBIN 12.6 g/dl (12.0-16.0); MEAN CELL VOLUME 78.7 fl (81.0-99.0); MEAN CORPUSCULAR HGB 23.3 pg (27.0-31.0); MEAN CORPUSCULAR HGB CONC 29.6 g/dl (33.0-37.0); MEAN PLATELET VOLUME 10.3 fl (9.6-12.3); RED BLOOD COUNT 5.4 10*6/uL (4.10-5.10); RED CELL DISTRI WIDTH 14.7 % (0-14.5); WHITE BLOOD COUNT 7.7 10*3/uL (4.8-10.8)
[2019-02-12 09:42] LABS: CHLORIDE 110 mmol/L (98-107); POTASSIUM 3.7 mmol/L (3.5-5.1); SODIUM 143 mmol/L (136-145)
[2019-02-12 09:55] LABS: ALBUMIN 3.6 gm/dl (3.1-4.5); ALKALINE PHOSPHATASE 95 U/L (45-117); BUN 11 mg/dl (7-24); CREATININE 0.84 mg/dL (0.55-1.02); SGOT/AST 18 IU/L (3-35); SGPT/ALT 17 U/L (12-78); TOTAL PROTEIN 7.2 gm/dL (6.4-8.2)
== END | disposition home or self-care (01) ==
LOC: LAB 08:42
PROVIDERS: Registered Nurse Flight
DX: E11.65 Type 2 diabetes mellitus with hyperglycemia (principal); E78.5 Hyperlipidemia, unspecified

== ENCOUNTER 2019-02-14 16:49 | Emergency (ER) | payer MEDICAID ==
[~2019-02-14] VITALS: Ht 154.9 cm; Wt 65.3 kg
[~2019-02-14 16:49] MED LIST changes: -KEFLEX500 M1 PO
[2019-02-14 17:22] LABS: BILIRUBIN NEGATIVE (NEGATIVE); BLOOD NEGATIVE (NEGATIVE); CLARITY CLEAR (CLEAR); COLOR YELLOW (YELLOW); GLUCOSE NEGATIVE (NEGATIVE); KETONE NEGATIVE (NEGATIVE); LEUKO ESTERASE 1+ (NEGATIVE); NITRITE NEGATIVE (NEGATIVE); SPECIFIC GRAVITY <= 1.005 (1.005-1.030); UROBILINOGEN 0.2 E.U./dl (0.2-1.0)
[2019-02-14] MEDS ORDERED: Motrin,Rufen800 MG PO (17:49)
[2019-02-14] MEDS ORDERED: KEFLEX500 M1 PO (17:49)
== END 2019-02-14 17:59 | disposition home or self-care (01) ==
LOC: ED 16:49
PROVIDERS: Physician Assistant
DX: N39.0 Urinary tract infection, site not specified (principal); Z79.2 Long term (current) use of antibiotics; Z79.899 Other long term (current) drug therapy; Z79.82 Long term (current) use of aspirin; Z90.49 Acquired absence of other specified parts of digestive tract; Z87.891 Personal history of nicotine dependence

== ENCOUNTER 2019-03-05 14:30 | Emergency (ER) | payer MEDICAID ==
[~2019-03-05] VITALS: Ht 154.9 cm; Wt 59.0 kg
--- NOTE | ~2019-03-05 | EKG ---
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
[~2019-03-05 14:30] MED LIST changes: +KEFLEX500 M1 PO
[2019-03-05 14:51] LABS: BILIRUBIN NEGATIVE (NEGATIVE); BLOOD 1+ (NEGATIVE); CLARITY CLEAR (CLEAR); COLOR YELLOW (YELLOW); GLUCOSE NEGATIVE (NEGATIVE); KETONE NEGATIVE (NEGATIVE); LEUKO ESTERASE 1+ (NEGATIVE); NITRITE NEGATIVE (NEGATIVE); SPECIFIC GRAVITY <= 1.005 (1.005-1.030); UROBILINOGEN 0.2 E.U./dl (0.2-1.0)
[2019-03-05 15:31] LABS: BASO # 0.1 10*3/uL (0.0-0.1); BASO % 0.6 % (0.0-1.0); EOS # 0.3 10*3/uL (0.0-0.4); EOS % 3.2 % (1.0-4.0); HEMATOCRIT 39.2 % (37.0-47.0); HEMOGLOBIN 11.8 g/dl (12.0-16.0); LYMPH # 1.6 10*3/uL (1.3-4.4); MEAN CELL VOLUME 79.4 fl (81.0-99.0); MEAN CORPUSCULAR HGB 23.9 pg (27.0-31.0); MEAN CORPUSCULAR HGB CONC 30.1 g/dl (33.0-37.0); MEAN PLATELET VOLUME 9.9 fl (9.6-12.3); MONO # 0.9 10*3/uL (0.1-1.0); MONO % 11.5 % (3.0-9.0); NEUT % 64.2 % (47.0-73.0); PLATELET COUNT AUTOMATED 247 10*3/uL (130-400); RED BLOOD COUNT 4.94 10*6/uL (4.10-5.10); RED CELL DISTRI WIDTH 14.2 % (0-14.5); WHITE BLOOD COUNT 7.7 10*3/uL (4.8-10.8)
[2019-03-05 15:49] LABS: ALBUMIN 3.2 gm/dl (3.1-4.5); ALKALINE PHOSPHATASE 97 U/L (45-117); BUN 9 mg/dl (7-24); CHLORIDE 110 mmol/L (98-107); CREATININE 0.89 mg/dL (0.55-1.02); SGOT/AST 12 IU/L (3-35); SGPT/ALT 14 U/L (12-78); SODIUM 143 mmol/L (136-145); TOTAL PROTEIN 6.5 gm/dL (6.4-8.2)
[2019-03-05 15:54] LABS: TROPONIN I < 0.015 ng/ml (<0.045)
[2019-03-05] MEDS ORDERED: CEFUROXIME AXE500 MG PO (18:41)
[2019-03-05] MEDS ORDERED: NAPROSYN500 MG PO (18:41)
== END 2019-03-05 18:46 | disposition home or self-care (01) ==
LOC: ED 14:30
PROVIDERS: Nurse Practitioner Family
DX: N39.0 Urinary tract infection, site not specified (principal); K57.90 Diverticulosis of intestine, part unspecified, without perforation or abscess without bleeding; Z90.49 Acquired absence of other specified parts of digestive tract; Z79.2 Long term (current) use of antibiotics; Z79.82 Long term (current) use of aspirin; Z79.899 Other long term (current) drug therapy; Z87.891 Personal history of nicotine dependence

== ENCOUNTER → 2019-03-14 | Outpatient (CLI) | payer MEDICAID ==
[~2019-03-14] MED LIST changes: +CEFUROXIME AXE500 MG PO
== END | disposition home or self-care (01) ==
LOC: RAD 10:56
DX: R91.1 Solitary pulmonary nodule (principal); R07.81 Pleurodynia

== ENCOUNTER 2019-04-12 20:26 | Emergency (ER) | payer MEDICAID ==
[~2019-04-12] VITALS: Ht 154.9 cm; Wt 60.3 kg
[2019-04-12 21:32] LABS: BASO # 0.1 10*3/uL (0.0-0.1); BASO % 0.7 % (0.0-1.0); EOS # 0.4 10*3/uL (0.0-0.4); EOS % 4.3 % (1.0-4.0); HEMATOCRIT 37.1 % (37.0-47.0); HEMOGLOBIN 11.1 g/dl (12.0-16.0); LYMPH # 1.8 10*3/uL (1.3-4.4); LYMPH % 20.3 % (27.0-41.0); MEAN CELL VOLUME 78.3 fl (81.0-99.0); MEAN CORPUSCULAR HGB 23.4 pg (27.0-31.0); MEAN CORPUSCULAR HGB CONC 29.9 g/dl (33.0-37.0); MEAN PLATELET VOLUME 9.5 fl (9.6-12.3); MONO % 11.4 % (3.0-9.0); NEUT # 5.6 10*3/uL (2.3-7.9); NEUT % 62.1 % (47.0-73.0); PLATELET COUNT AUTOMATED 241 10*3/uL (130-400); RED BLOOD COUNT 4.74 10*6/uL (4.10-5.10); RED CELL DISTRI WIDTH 15.2 % (0-14.5); WHITE BLOOD COUNT 8.9 10*3/uL (4.8-10.8)
[2019-04-12 21:43] LABS: ACT PARTIAL THROMBO TIME 26.5 SECONDS (20.0-32.1); INTERNATIONAL NORM RATIO 0.9 (2.0-3.5)
[2019-04-12 21:47] LABS: ALBUMIN 3.1 gm/dl (3.1-4.5); ALKALINE PHOSPHATASE 94 U/L (45-117); BUN 11 mg/dl (7-24); CHLORIDE 108 mmol/L (98-107); CREATININE 0.81 mg/dL (0.55-1.02); LIPASE 138 U/L (73-393); POTASSIUM 3.6 mmol/L (3.5-5.1); SGOT/AST 13 IU/L (3-35); SGPT/ALT 13 U/L (12-78); SODIUM 141 mmol/L (136-145); TOTAL PROTEIN 6.6 gm/dL (6.4-8.2)
[2019-04-12 21:48] LABS: TROPONIN I < 0.015 ng/ml (<0.045)
== END 2019-04-13 00:45 | disposition home or self-care (01) ==
LOC: ED 20:26
PROVIDERS: Nurse Practitioner Family
DX: S22.43XA Multiple fractures of ribs, bilateral, initial encounter for closed fracture (principal); E11.9 Type 2 diabetes mellitus without complications; J44.9 Chronic obstructive pulmonary disease, unspecified; E78.5 Hyperlipidemia, unspecified; Z87.891 Personal history of nicotine dependence; Z90.49 Acquired absence of other specified parts of digestive tract; Z98.51 Tubal ligation status; Z98.890 Other specified postprocedural states; Z79.899 Other long term (current) drug therapy; Z79.82 Long term (current) use of aspirin; X58.XXXA Exposure to other specified factors, initial encounter; Y93.89 Activity, other specified; Y92.89 Other specified places as the place of occurrence of the external cause; Y99.9 Unspecified external cause status

== ENCOUNTER 2019-06-16 17:34 | Inpatient (IN) | payer MEDICAID ==
[~2019-06-16] VITALS: Ht 154.9 cm; Wt 61.7 kg
[2019-06-16 17:37] VITALS: BP 149/67
[2019-06-16 18:27] LABS: BASO # 0.1 10*3/uL (0.0-0.1); BASO % 0.6 % (0.0-1.0); EOS # 0.5 10*3/uL (0.0-0.4); EOS % 4.9 % (1.0-4.0); HEMATOCRIT 43.1 % (37.0-47.0); HEMOGLOBIN 12.7 g/dl (12.0-16.0); LYMPH # 1.9 10*3/uL (1.3-4.4); LYMPH % 19.9 % (27.0-41.0); MEAN CELL VOLUME 77.4 fl (81.0-99.0); MEAN CORPUSCULAR HGB 22.8 pg (27.0-31.0); MEAN CORPUSCULAR HGB CONC 29.5 g/dl (33.0-37.0); MEAN PLATELET VOLUME 9.8 fl (9.6-12.3); MONO # 0.7 10*3/uL (0.1-1.0); MONO % 7.7 % (3.0-9.0); NEUT # 6.3 10*3/uL (2.3-7.9); PLATELET COUNT AUTOMATED 275 10*3/uL (130-400); RED BLOOD COUNT 5.57 10*6/uL (4.10-5.10); RED CELL DISTRI WIDTH 14.2 % (0-14.5); WHITE BLOOD COUNT 9.5 10*3/uL (4.8-10.8)
[2019-06-16 18:37] LABS: ACT PARTIAL THROMBO TIME 25.6 SECONDS (20.0-32.1); INTERNATIONAL NORM RATIO 0.9 (2.0-3.5)
[2019-06-16 18:47] LABS: ALBUMIN 3.4 gm/dl (3.1-4.5); ALKALINE PHOSPHATASE 106 U/L (45-117); BUN 12 mg/dl (7-24); CHLORIDE 107 mmol/L (98-107); CREATININE 0.77 mg/dL (0.55-1.02); LIPASE 152 U/L (73-393); POTASSIUM 4.1 mmol/L (3.5-5.1); SGOT/AST 11 IU/L (3-35); SGPT/ALT 15 U/L (12-78); SODIUM 141 mmol/L (136-145); TOTAL PROTEIN 7.7 gm/dL (6.4-8.2)
[2019-06-16 18:50] LABS: TROPONIN I < 0.015 ng/ml (<0.045)
[2019-06-16 19:00] LABS: BILIRUBIN NEGATIVE (NEGATIVE); BLOOD NEGATIVE (NEGATIVE); CLARITY CLEAR (CLEAR); COLOR YELLOW (YELLOW); GLUCOSE NEGATIVE (NEGATIVE); KETONE NEGATIVE (NEGATIVE); LEUKO ESTERASE 1+ (NEGATIVE); NITRITE NEGATIVE (NEGATIVE); PH 5.5 (5.0-9.0); SPECIFIC GRAVITY <= 1.005 (1.005-1.030); UROBILINOGEN 0.2 E.U./dl (0.2-1.0)
[2019-06-16 19:07] VITALS: BP 132/69
[2019-06-16 19:08] LABS: BACTERIA TRACE; EPITHELIAL CELLS 0-2
[2019-06-16 21:17] VITALS: BP 132/69
[2019-06-16 21:45] VITALS: BP 131/54
--- NOTE | 2019-06-16 21:45 | NUR ---
A 64, admitted to , under the services of JAYASHREE Mai DO with a diagnosis of PNEUMONIA. Chief complaint is SHORTNESS OF BREATH. Patient arrived via bed from ER. Monitor applied. Initial assessment completed. Vital signs taken and recorded. JAYASHREE MAI DO notified of admission to the unit. Orders received. See assessment for past medical history, medications and allergies. Patient and/or family oriented to unit. [facility] visitation policy reviewed. Clothing/patient valuable form completed. KEILA DUBON
--- NOTE | 2019-06-16 22:29 | NUR ---
NOTIFIED DR BENEDICT OF NEW CONSULT FOR PNA,LUNG NODULE AND PT KNOWN TO HIM.
[2019-06-16] MEDS ORDERED: FOSAMAX70 M1 PO (22:41)
--- NOTE | 2019-06-16 22:42 | NUR ---
MEDS RECONCILED WITH LIST ON FILE IN CHART.
--- NOTE | 2019-06-16 22:59 | NUR ---
PT MEDICATED WITH NORCO FOR COMPLAINT OF CHEST PAIN RELATED TO COUGHING. WILL MONITOR EFFECTIVENESS.
--- NOTE | 2019-06-16 23:57 | NUR ---
DR. CASTILLO NOTIFIED OF VERIFIED HOME MEDICATIONS.
[2019-06-17] VITALS (7 sets, daily range): BP systolic 100–128; BP diastolic 43–64
--- NOTE | 2019-06-17 01:00 | NUR ---
PT SLEEPING, CALL LIGHT IN REACH
--- NOTE | 2019-06-17 04:40 | NUR ---
24 HR chart check completed.
--- NOTE | 2019-06-17 04:48 | NUR ---
PT SLEEPING AT THIS TIME. CALL LIGHT IN REACH.
[2019-06-17 06:21] LABS: HEMATOCRIT 41.3 % (37.0-47.0); HEMOGLOBIN 12.1 g/dl (12.0-16.0); MEAN CELL VOLUME 77.2 fl (81.0-99.0); MEAN CORPUSCULAR HGB 22.6 pg (27.0-31.0); MEAN CORPUSCULAR HGB CONC 29.3 g/dl (33.0-37.0); PLATELET COUNT AUTOMATED 272 10*3/uL (130-400); RED BLOOD COUNT 5.35 10*6/uL (4.10-5.10); RED CELL DISTRI WIDTH 14.3 % (0-14.5); WHITE BLOOD COUNT 10.3 10*3/uL (4.8-10.8)
[2019-06-17 06:42] LABS: ALKALINE PHOSPHATASE 96 U/L (45-117); BUN 13 mg/dl (7-24); CHLORIDE 107 mmol/L (98-107); CREATININE 1.04 mg/dL (0.55-1.02); PHOSPHOROUS 3.6 mg/dL (2.5-4.9); POTASSIUM 3.6 mmol/L (3.5-5.1); SGOT/AST 11 IU/L (3-35); SGPT/ALT 11 U/L (12-78); SODIUM 140 mmol/L (136-145)
[2019-06-17 06:50] LABS: THYROID STIM HORMONE (HS) 0.453 uIU/ml (0.358-4.75)
[2019-06-17 07:25] LABS: MICROCYTOSIS SLIGHT; PLATELET SUFFICIENCY NORMAL (NORMAL); TOTAL CELLS COUNTED 100 #CELLS
[2019-06-17 07:26] LABS: BURR CELLS FEW
--- NOTE | 2019-06-17 08:56 | NUR ---
PT MEDICATED WITH PO NORCO PER PRN ORDER FOR C/O HEADACHE AND BACK PAIN. RATES PAIN 12/18. WILL MONITOR EFFECTIVENESS.
--- NOTE | 2019-06-17 09:57 | NUR ---
NORCO RELIEVING PAIN PER PT. WILL CONTINUE TO MONITOR.
--- NOTE | 2019-06-17 14:38 | NUR ---
NORCO GIVEN PER PRN ORDER FOR C/O HEADACHE AND BACK PAIN. RATES PAIN /. WILL MONITOR EFFECTIVENESS.
--- NOTE | 2019-06-17 16:00 | NUR ---
EB EFFECTIVE PER PT.
--- NOTE | 2019-06-17 19:30 | NUR ---
REPORT RECEIVED FROM STEVEN JENSEN. PT AWAKE AT THIS TIME. FAMILY AT BEDSIDE. NO COMPLAINTS, CALL LIGHT IN REACH.
--- NOTE | 2019-06-17 20:22 | NUR ---
PT MEDICATED WITH NORCO PER ORDER FOR COMPLAINTS OF CHEST PAIN RELATED TO COUGHING. WILL MONITOR EFFECTIVENESS.
--- NOTE | 2019-06-17 22:00 | NUR ---
NORCO APPEARS EFFECTIVE, PT SLEEPING AT THIS TIME.
[2019-06-18] VITALS: BP 121/49
--- NOTE | 2019-06-18 02:00 | NUR ---
PT SLEEPING AT THIS TIME. CALL LIGHT IN REACH, O2 INTACT
[2019-06-18 07:04] LABS: BASO % 0.1 % (0.0-1.0); EOS % 0.1 % (1.0-4.0); HEMATOCRIT 37.9 % (37.0-47.0); HEMOGLOBIN 10.7 g/dl (12.0-16.0); LYMPH # 1.7 10*3/uL (1.3-4.4); LYMPH % 12.6 % (27.0-41.0); MEAN CELL VOLUME 78.1 fl (81.0-99.0); MEAN CORPUSCULAR HGB 22.1 pg (27.0-31.0); MEAN CORPUSCULAR HGB CONC 28.2 g/dl (33.0-37.0); MEAN PLATELET VOLUME 10.4 fl (9.6-12.3); MONO # 0.9 10*3/uL (0.1-1.0); MONO % 6.4 % (3.0-9.0); NEUT % 79.9 % (47.0-73.0); PLATELET COUNT AUTOMATED 301 10*3/uL (130-400); RED BLOOD COUNT 4.85 10*6/uL (4.10-5.10); RED CELL DISTRI WIDTH 14.3 % (0-14.5); WHITE BLOOD COUNT 13.8 10*3/uL (4.8-10.8)
[2019-06-18 07:23] LABS: BUN 18 mg/dl (7-24); CHLORIDE 109 mmol/L (98-107); CREATININE 0.75 mg/dL (0.55-1.02); POTASSIUM 4.1 mmol/L (3.5-5.1); SODIUM 142 mmol/L (136-145)
--- NOTE | 2019-06-18 08:00 | NUR ---
PATIENT C/O OF HEAD/NECK/BACK PAIN PATIENT RATES PAIN AT A 9 OUT OF 10, STATES IT IS A DULL ACHING PAIN, PRN NORCO GIVEN, WILL CONTINUE TO MONITOR. SILVIO PORTILLO SPNRCC
[2019-06-18 08:07] VITALS: BP 132/78
--- NOTE | 2019-06-18 08:45 | NUR ---
PT UP IN ROOM. RESP-EASY AND REGULAR. NO C/O AT THIS TIME. LUNGS DIMINISHED T/O. STUDENT NURSE WITH PT TODAY ALSO. CALL LIGHT IN REACH. WILL CON'T TO MONITOR.
--- NOTE | 2019-06-18 09:04 | NUR ---
PRN NORCO EFFECTIVE, PATIENT STATES PAIN IS NOW A 0 OUT OF 10, AMBULATING AROUND ROOM AT THIS TIME WITHOUT DIFFICULTY. SILVIO PORTILLO SPNRCC
--- NOTE | 2019-06-18 09:50 | NUR ---
PATIENT UP AMBULATING AROUND ROOM EASILY, NO COMPLAINTS AT THIS TIME. SILVIO PORTILLO SPNRCC
[2019-06-18] MEDS ORDERED: DOXYCYCLINE100 M3 PO (10:13)
[2019-06-18] MEDS ORDERED: PREDNISONE10 MG PO (10:13)
--- NOTE | 2019-06-18 11:40 | NUR ---
HOME O2 ASSESSMENT ROOM AIR AT REST: SPO2 94% HR 76 RR 20 BP 126/80 ROOM AIR WITH AMBULATION: SPO2 91-93% HR 94-102 RR 24 RECOVERY ON ROOM AIR: SPO2 94% HR 90 RR 20 BP 134/80 PT. DID NOT REQUIRE SUPPLEMENTAL O2 AT REST OR DURING AMBULATION.
[2019-06-18 12:30] VITALS: BP 128/64
--- NOTE | 2019-06-18 12:45 | NUR ---
PATIENT PLEASANT AND COOPERATIVE, UP IN CHAIR AT THIS TIME WILL CONTINUE TO MONITOR. SILVIO PORTILLO SPCC
--- NOTE | 2019-06-18 13:20 | NUR ---
PTS IV D/C'D, SITE ASYMPTOMATIC, DRESSING APPLIED TO SITE, FAMILY AT BED SIDE. SILVIO PORTILLO SPNRCC
--- NOTE | 2019-06-18 13:35 | NUR ---
Discharge instructions reviewed with patient/family. Patient receptive and verbalizes understanding. Follow-up care arranged. Written instructions given to patient/family, PT AMBULATED TO CAR IN CARE OF FAMILY, STUDENT ACCOMPANIED PT TO CAR, CONDITION STABLE SILVIO PORTILLO SPNRCC
--- NOTE | 2019-06-18 15:05 | NUR ---
Validation Intern in to talk to patient. Patient states lives at HOME with SON AND DAUGHTER IN [place]. There are FEW steps in the home. Physician: Luigi GALLARDO [facility]: [facility], 3 DAYS A WEEK, 2 HOURS A DAY. Patient's level of ADLs: MINIMAL ASSIST Patient has working utilities: YES DME: OXYGEN, NEBULIZER Follow-up physician's appointment after d/c: WILL BE MADE BY HOSPITALIST NURSE DIRECTOR ON DISCHARGE Does patient want to access PORTAL?: NO Discharge plan PT LIVES AT HOME WITH HER SON AND DAUGHTER IN LAW AND REQUIRES MINIMAL ASSITANCE IN HER CARE. STATES SHE WILL RETURN HOME ON DISCHARGE WITH RESUMPTION OF AIDES FROM [facility]. DENIES ANY OTHER NEEDS. WILL CONTINUE TO FOLLOW. [facility] WILL TRANSPORT HOME. ANNI RAINEY
== END 2019-06-18 14:00 | disposition home or self-care (01) | DRG 139 ==
LOC: ED 17:34 → EDHOLD 20:44 → 4E 21:04
PROVIDERS: Physician Assistant; Student in an Organized Health Care Education/Training Program; ADMIT Family Medicine
DX: J18.9 Pneumonia, unspecified organism (principal); J43.9 Emphysema, unspecified; J96.11 Chronic respiratory failure with hypoxia; K21.9 Gastro-esophageal reflux disease without esophagitis; I10 Essential (primary) hypertension; E78.1 Pure hyperglyceridemia; F41.1 Generalized anxiety disorder; R91.1 Solitary pulmonary nodule; E11.9 Type 2 diabetes mellitus without complications; E78.5 Hyperlipidemia, unspecified; M81.0 Age-related osteoporosis without current pathological fracture; M94.0 Chondrocostal junction syndrome [Tietze]; E55.9 Vitamin D deficiency, unspecified; E66.3 Overweight; N17.0 Acute kidney failure with tubular necrosis; E44.0 Moderate protein-calorie malnutrition; Z68.25 Body mass index [BMI] 25.0-25.9, adult; Z87.891 Personal history of nicotine dependence; Z90.49 Acquired absence of other specified parts of digestive tract; Z98.51 Tubal ligation status; Z82.49 Family history of ischemic heart disease and other diseases of the circulatory system; Z83.6 Family history of other diseases of the respiratory system; Z79.82 Long term (current) use of aspirin; Z79.899 Other long term (current) drug therapy; Z99.81 Dependence on supplemental oxygen

== ENCOUNTER → 2019-07-18 | Outpatient (CLI) | payer MEDICAID ==
[~2019-07-18] MED LIST changes: +FOSAMAX70 M1 PO
== END | disposition home or self-care (01) ==
LOC: RAD 09:12
DX: J18.9 Pneumonia, unspecified organism (principal)

== ENCOUNTER 2019-08-27 02:59 | Emergency (ER) | payer MEDICAID ==
[~2019-08-27] VITALS: Ht 154.9 cm; Wt 60.3 kg
[2019-08-27 05:17] LABS: ALBUMIN 3.3 gm/dl (3.1-4.5); ALKALINE PHOSPHATASE 106 U/L (45-117); BUN 18 mg/dl (7-24); CHLORIDE 112 mmol/L (98-107); CREATININE 0.85 mg/dL (0.55-1.02); LIPASE 354 U/L (73-393); POTASSIUM 4.3 mmol/L (3.5-5.1); SGOT/AST 10 IU/L (3-35); SGPT/ALT 14 U/L (12-78); SODIUM 143 mmol/L (136-145); TOTAL PROTEIN 7.1 gm/dL (6.4-8.2)
[2019-08-27 05:21] LABS: BASO # 0.1 10*3/uL (0.0-0.1); BASO % 0.6 % (0.0-1.0); EOS # 0.4 10*3/uL (0.0-0.4); EOS % 3.1 % (1.0-4.0); HEMATOCRIT 40.3 % (37.0-47.0); HEMOGLOBIN 12.1 g/dl (12.0-16.0); LYMPH # 1.7 10*3/uL (1.3-4.4); LYMPH % 13.4 % (27.0-41.0); MEAN CELL VOLUME 76.5 fl (81.0-99.0); MEAN PLATELET VOLUME 9.9 fl (9.6-12.3); MONO # 0.8 10*3/uL (0.1-1.0); MONO % 6.5 % (3.0-9.0); NEUT # 9.5 10*3/uL (2.3-7.9); NEUT % 75.1 % (47.0-73.0); PLATELET COUNT AUTOMATED 286 10*3/uL (130-400); RED BLOOD COUNT 5.27 10*6/uL (4.10-5.10); RED CELL DISTRI WIDTH 15.4 % (0-14.5); WHITE BLOOD COUNT 12.6 10*3/uL (4.8-10.8)
[2019-08-27 07:59] LABS: BILIRUBIN NEGATIVE (NEGATIVE); BLOOD NEGATIVE (NEGATIVE); CLARITY CLEAR (CLEAR); COLOR YELLOW (YELLOW); GLUCOSE NEGATIVE (NEGATIVE); KETONE NEGATIVE (NEGATIVE); LEUKO ESTERASE NEGATIVE (NEGATIVE); NITRITE NEGATIVE (NEGATIVE); SPECIFIC GRAVITY 1.005 (1.005-1.030); UROBILINOGEN 0.2 E.U./dl (0.2-1.0)
[2019-08-27] MEDS ORDERED: PEPCID20 MG PO (09:25)
== END 2019-08-27 09:30 | disposition home or self-care (01) ==
LOC: ED 02:59
PROVIDERS: Emergency Medicine
DX: K29.00 Acute gastritis without bleeding (principal); M54.6 Pain in thoracic spine; K21.9 Gastro-esophageal reflux disease without esophagitis; J44.9 Chronic obstructive pulmonary disease, unspecified; E11.9 Type 2 diabetes mellitus without complications; I10 Essential (primary) hypertension; M81.0 Age-related osteoporosis without current pathological fracture; E78.2 Mixed hyperlipidemia; Z90.49 Acquired absence of other specified parts of digestive tract; Z79.899 Other long term (current) drug therapy; Z79.2 Long term (current) use of antibiotics; Z79.82 Long term (current) use of aspirin; Z87.891 Personal history of nicotine dependence

== ENCOUNTER 2019-09-03 08:29 | Inpatient (IN) | payer MEDICAID ==
[2019-09-03] VITALS (8 sets, daily range): BP systolic 114–136; BP diastolic 54–74
[~2019-09-03] VITALS: Ht 154.9 cm; Wt 59.0 kg
[~2019-09-03 08:29] MED LIST changes: +PEPCID20 MG PO
[2019-09-03 09:14] LABS: HEMATOCRIT 44.4 % (37.0-47.0); HEMOGLOBIN 13.3 g/dl (12.0-16.0); MEAN CELL VOLUME 78.2 fl (81.0-99.0); MEAN CORPUSCULAR HGB 23.4 pg (27.0-31.0); MEAN PLATELET VOLUME 9.8 fl (9.6-12.3); PLATELET COUNT AUTOMATED 339 10*3/uL (130-400); RED BLOOD COUNT 5.68 10*6/uL (4.10-5.10); RED CELL DISTRI WIDTH 15.4 % (0-14.5); WHITE BLOOD COUNT 32.4 10*3/uL (4.8-10.8)
[2019-09-03 09:24] LABS: ACT PARTIAL THROMBO TIME 31.9 SECONDS (20.0-32.1)
[2019-09-03 09:27] LABS: ALBUMIN 3.6 gm/dl (3.1-4.5); ALKALINE PHOSPHATASE 118 U/L (45-117); BUN 13 mg/dl (7-24); CHLORIDE 106 mmol/L (98-107); CREATININE 0.94 mg/dL (0.55-1.02); POTASSIUM 4.2 mmol/L (3.5-5.1); SGOT/AST 5 IU/L (3-35); SGPT/ALT 8 U/L (12-78); SODIUM 137 mmol/L (136-145); TOTAL PROTEIN 8.3 gm/dL (6.4-8.2)
[2019-09-03 09:28] LABS: TROPONIN I < 0.015 ng/ml (<0.045)
[2019-09-03 09:39] LABS: PLATELET SUFFICIENCY NORMAL (NORMAL); TOTAL CELLS COUNTED 100 #CELLS; VACUOLATION OF NEUTROPHILS SLIGHT
[2019-09-03 09:40] LABS: BURR CELLS FEW; MICROCYTOSIS SLIGHT; OVALOCYTES FEW
[2019-09-03 10:45] LABS: ABG BASE EXCESS -4.4 mmol/L (-2.0-2.0); ARTERIAL BLOOD GAS PH 7.265 (7.35-7.45)
[2019-09-03 14:09] LABS: ABG BASE EXCESS -4.7 mmol/L (-2.0-2.0); ARTERIAL BLOOD GAS PH 7.309 (7.35-7.45)
[2019-09-03 19:55] LABS: BILIRUBIN NEGATIVE (NEGATIVE); BLOOD NEGATIVE (NEGATIVE); CLARITY CLEAR (CLEAR); COLOR YELLOW (YELLOW); GLUCOSE NEGATIVE (NEGATIVE); KETONE NEGATIVE (NEGATIVE); LEUKO ESTERASE TRACE (NEGATIVE); NITRITE NEGATIVE (NEGATIVE); PH 6.5 (5.0-9.0); UROBILINOGEN 0.2 E.U./dl (0.2-1.0)
[2019-09-03 19:56] LABS: WBC 0-2 wbc/hpf (0-5)
[2019-09-04] VITALS: BP 112/57
[2019-09-04 07:05] LABS: HEMATOCRIT 39.2 % (37.0-47.0); HEMOGLOBIN 11.6 g/dl (12.0-16.0); MEAN CELL VOLUME 77.8 fl (81.0-99.0); MEAN CORPUSCULAR HGB CONC 29.6 g/dl (33.0-37.0); PLATELET COUNT AUTOMATED 300 10*3/uL (130-400); RED BLOOD COUNT 5.04 10*6/uL (4.10-5.10); RED CELL DISTRI WIDTH 15.4 % (0-14.5); WHITE BLOOD COUNT 22.5 10*3/uL (4.8-10.8)
[2019-09-04 07:12] LABS: ARTERIAL BLOOD GAS PH 7.314 (7.35-7.45)
[2019-09-04 07:15] LABS: ACT PARTIAL THROMBO TIME 32.5 SECONDS (20.0-32.1)
[2019-09-04 07:16] LABS: ABG BASE EXCESS -6.6 mmol/L (-2.0-2.0)
[2019-09-04 07:23] LABS: ALBUMIN 3.1 gm/dl (3.1-4.5); BUN 14 mg/dl (7-24); CHLORIDE 109 mmol/L (98-107); CREATININE 0.81 mg/dL (0.55-1.02); PHOSPHOROUS 2.6 mg/dL (2.5-4.9); SGOT/AST 13 IU/L (3-35); SGPT/ALT 19 U/L (12-78); SODIUM 139 mmol/L (136-145); TOTAL PROTEIN 7.7 gm/dL (6.4-8.2)
[2019-09-04 07:31] LABS: ALKALINE PHOSPHATASE 99 U/L (45-117); THYROID STIM HORMONE (HS) 0.617 uIU/ml (0.358-4.75)
[2019-09-04 07:54] LABS: PLATELET SUFFICIENCY NORMAL (NORMAL); TOTAL CELLS COUNTED 100 #CELLS
[2019-09-04 08:00] VITALS: BP 116/70
[2019-09-04 12:00] VITALS: BP 121/57
[2019-09-04 16:00] VITALS: BP 120/62
[2019-09-04 20:00] VITALS: BP 120/55
[2019-09-05] VITALS: BP 129/72
[2019-09-05 06:14] LABS: BASO % 0.2 % (0.0-1.0); EOS # 0.1 10*3/uL (0.0-0.4); EOS % 0.7 % (1.0-4.0); HEMATOCRIT 36.2 % (37.0-47.0); HEMOGLOBIN 10.7 g/dl (12.0-16.0); LYMPH # 2.4 10*3/uL (1.3-4.4); LYMPH % 13.5 % (27.0-41.0); MEAN CELL VOLUME 78.2 fl (81.0-99.0); MEAN CORPUSCULAR HGB 23.1 pg (27.0-31.0); MEAN CORPUSCULAR HGB CONC 29.6 g/dl (33.0-37.0); MEAN PLATELET VOLUME 10.2 fl (9.6-12.3); MONO # 1.5 10*3/uL (0.1-1.0); MONO % 8.4 % (3.0-9.0); NEUT # 13.5 10*3/uL (2.3-7.9); NEUT % 76.1 % (47.0-73.0); PLATELET COUNT AUTOMATED 294 10*3/uL (130-400); RED BLOOD COUNT 4.63 10*6/uL (4.10-5.10); RED CELL DISTRI WIDTH 15.9 % (0-14.5); WHITE BLOOD COUNT 17.8 10*3/uL (4.8-10.8)
[2019-09-05 07:29] VITALS: BP 120/80
[2019-09-05 08:00] VITALS: BP 120/80
[2019-09-05 12:00] VITALS: BP 120/56
[2019-09-05 16:00] VITALS: BP 107/59
[2019-09-05 20:00] VITALS: BP 113/59
[2019-09-06] VITALS: BP 138/58
[2019-09-06 06:45] LABS: BASO % 0.2 % (0.0-1.0); HEMATOCRIT 37.2 % (37.0-47.0); HEMOGLOBIN 11.2 g/dl (12.0-16.0); LYMPH % 9.1 % (27.0-41.0); MEAN CELL VOLUME 77.8 fl (81.0-99.0); MEAN CORPUSCULAR HGB 23.4 pg (27.0-31.0); MEAN CORPUSCULAR HGB CONC 30.1 g/dl (33.0-37.0); MONO # 0.6 10*3/uL (0.1-1.0); MONO % 5.6 % (3.0-9.0); NEUT # 8.8 10*3/uL (2.3-7.9); NEUT % 83.3 % (47.0-73.0); PLATELET COUNT AUTOMATED 332 10*3/uL (130-400); RED BLOOD COUNT 4.78 10*6/uL (4.10-5.10); RED CELL DISTRI WIDTH 15.7 % (0-14.5); WHITE BLOOD COUNT 10.6 10*3/uL (4.8-10.8)
[2019-09-06 08:00] VITALS: BP 139/60
[2019-09-06 12:00] VITALS: BP 132/62
[2019-09-06 16:00] VITALS: BP 126/60
[2019-09-06 20:00] VITALS: BP 135/67
[2019-09-07] VITALS: BP 139/64
[2019-09-07 07:09] LABS: CREATININE 0.78 mg/dL (0.55-1.02)
[2019-09-07 08:00] VITALS: BP 155/72
[2019-09-07] MEDS ORDERED: COUGH DM PO (10:49)
[2019-09-07] MEDS ORDERED: PREDNISONE10 MG PO (10:49)
[2019-09-07] MEDS ORDERED: LEVAQUIN750 M1 PO (10:49)
[2019-09-07 12:00] VITALS: BP 149/72
== END 2019-09-07 12:08 | disposition home or self-care (01) | DRG 720 ==
LOC: ED 08:29 → EDHOLD 10:06 → 4E 10:06 → 5E 09-05 21:05
PROVIDERS: Emergency Medicine; Internal Medicine; Internal Medicine Critical Care Medicine; ADMIT Internal Medicine
PROC: 5A09357 Assistance with Respiratory Ventilation, Less than 24 Consecutive Hours, Continuous Positive Airway Pressure (ICD-10-PCS; 2019-09-03)
PROC: 5A09357 Assistance with Respiratory Ventilation, Less than 24 Consecutive Hours, Continuous Positive Airway Pressure (ICD-10-PCS; 2019-09-04)
PROC: 5A09357 Assistance with Respiratory Ventilation, Less than 24 Consecutive Hours, Continuous Positive Airway Pressure (ICD-10-PCS; principal; 2019-09-05)
PROC: 5A09357 Assistance with Respiratory Ventilation, Less than 24 Consecutive Hours, Continuous Positive Airway Pressure (ICD-10-PCS; 2019-09-06)
PROC: 5A09357 Assistance with Respiratory Ventilation, Less than 24 Consecutive Hours, Continuous Positive Airway Pressure (ICD-10-PCS; 2019-09-07)
DX: A41.9 Sepsis, unspecified organism (principal); J96.21 Acute and chronic respiratory failure with hypoxia; J96.22 Acute and chronic respiratory failure with hypercapnia; J18.0 Bronchopneumonia, unspecified organism; J44.0 Chronic obstructive pulmonary disease with (acute) lower respiratory infection; J44.1 Chronic obstructive pulmonary disease with (acute) exacerbation; R65.20 Severe sepsis without septic shock; I10 Essential (primary) hypertension; E11.65 Type 2 diabetes mellitus with hyperglycemia; M81.0 Age-related osteoporosis without current pathological fracture; K21.9 Gastro-esophageal reflux disease without esophagitis; F41.1 Generalized anxiety disorder; E78.5 Hyperlipidemia, unspecified; K57.90 Diverticulosis of intestine, part unspecified, without perforation or abscess without bleeding; R91.1 Solitary pulmonary nodule; R10.9 Unspecified abdominal pain; E78.1 Pure hyperglyceridemia; Z99.81 Dependence on supplemental oxygen; Z87.01 Personal history of pneumonia (recurrent); Z90.49 Acquired absence of other specified parts of digestive tract; Z98.51 Tubal ligation status; Z87.891 Personal history of nicotine dependence; Z82.49 Family history of ischemic heart disease and other diseases of the circulatory system; Z82.5 Family history of asthma and other chronic lower respiratory diseases; Z83.3 Family history of diabetes mellitus; Z79.82 Long term (current) use of aspirin; Z79.899 Other long term (current) drug therapy

== ENCOUNTER → 2019-10-26 | Outpatient (CLI) | payer MEDICAID ==
[~2019-10-26] MED LIST changes: +COUGH DM PO
[2019-10-26 12:05] LABS: ALBUMIN 3.3 gm/dl (3.1-4.5); ALKALINE PHOSPHATASE 124 U/L (45-117); BUN 12 mg/dl (7-24); CHLORIDE 109 mmol/L (98-107); CHOLESTEROL 183 mg/dL (<200); CREATININE 0.81 mg/dL (0.55-1.02); HDL CHOLESTEROL 34 mg/dl (40-60); LDL CHOLESTEROL 115 mg/dL (9-159); POTASSIUM 4.5 mmol/L (3.5-5.1); SGOT/AST 19 IU/L (3-35); SGPT/ALT 13 U/L (12-78); SODIUM 140 mmol/L (136-145); TOTAL PROTEIN 7.4 gm/dL (6.4-8.2); TRIGLYCERIDES 169 mg/dl (<150); VLDL CHOLESTEROL 34 mg/dL (6-40)
== END | disposition home or self-care (01) ==
LOC: LAB 11:24
PROVIDERS: Registered Nurse Flight
DX: E11.65 Type 2 diabetes mellitus with hyperglycemia (principal)

== ENCOUNTER 2019-12-31 14:19 | Emergency (ER) | payer MEDICAID ==
[2019-12-31 15:36] LABS: BASO # 0.1 10*3/uL (0.0-0.1); BASO % 0.7 % (0.0-1.0); EOS # 0.5 10*3/uL (0.0-0.4); EOS % 5.6 % (1.0-4.0); HEMATOCRIT 39.8 % (37.0-47.0); LYMPH % 24.5 % (27.0-41.0); MEAN CELL VOLUME 80.1 fl (81.0-99.0); MEAN CORPUSCULAR HGB 24.3 pg (27.0-31.0); MEAN CORPUSCULAR HGB CONC 30.4 g/dl (33.0-37.0); MEAN PLATELET VOLUME 9.4 fl (9.6-12.3); MONO # 0.6 10*3/uL (0.1-1.0); MONO % 7.7 % (3.0-9.0); NEUT # 4.9 10*3/uL (2.3-7.9); NEUT % 60.9 % (47.0-73.0); PLATELET COUNT AUTOMATED 256 10*3/uL (130-400); RED BLOOD COUNT 4.97 10*6/uL (4.10-5.10); RED CELL DISTRI WIDTH 14.4 % (0-14.5); WHITE BLOOD COUNT 8.1 10*3/uL (4.8-10.8)
[2019-12-31 15:46] LABS: BUN 11 mg/dl (7-24); CHLORIDE 109 mmol/L (98-107); CREATININE 0.86 mg/dL (0.55-1.02); POTASSIUM 3.9 mmol/L (3.5-5.1); SODIUM 140 mmol/L (136-145)
[2019-12-31] MEDS ORDERED: PREDNISONE20 M1 PO (17:19)
[2019-12-31] MEDS ORDERED: VIBRAMYCIN100 MG PO (17:19)
== END 2019-12-31 17:28 | disposition home or self-care (01) ==
LOC: ED 14:19
PROVIDERS: Emergency Medicine
DX: J44.1 Chronic obstructive pulmonary disease with (acute) exacerbation (principal); E11.9 Type 2 diabetes mellitus without complications; I10 Essential (primary) hypertension; E78.5 Hyperlipidemia, unspecified; M81.0 Age-related osteoporosis without current pathological fracture; K21.9 Gastro-esophageal reflux disease without esophagitis; M19.90 Unspecified osteoarthritis, unspecified site; Z79.899 Other long term (current) drug therapy; Z79.82 Long term (current) use of aspirin; Z87.891 Personal history of nicotine dependence

== ENCOUNTER → 2020-04-07 | Outpatient (CLI) | payer MEDICAID ==
[~2020-04-07] MED LIST changes: +PREDNISONE20 M1 PO
== END | disposition home or self-care (01) ==
LOC: COVID19 08:49
PROVIDERS: ATTEND Internal Medicine Critical Care Medicine
DX: Z11.59 Encounter for screening for other viral diseases (principal)

== ENCOUNTER → 2020-05-12 | Outpatient (CLI) | payer MEDICAID ==
[~2020-05-12] MED LIST changes: +OMNICEF300 MG PO; +VENT7GM INH
== END | disposition home or self-care (01) ==
LOC: COVID19 00:51
PROVIDERS: ATTEND Internal Medicine Gastroenterology
DX: Z20.828 Contact with and (suspected) exposure to other viral communicable diseases (principal)

== ENCOUNTER → 2020-05-16 | Day surgery (SDC) | payer MEDICAID ==
[~2020-05-16] VITALS: Ht 154.9 cm; Wt 59.0 kg
[2020-05-16 07:00] VITALS: BP 140/67
[2020-05-16 08:56] VITALS: BP 133/78
[2020-05-16 09:11] VITALS: BP 131/62
[2020-05-16 09:26] VITALS: BP 133/78
== END ==
LOC: SDC 05-13 08:45
PROVIDERS: ATTEND Internal Medicine Gastroenterology
DX: K92.1 Melena (principal); Z86.010 Personal history of colon polyps; K57.30 Diverticulosis of large intestine without perforation or abscess without bleeding; K44.9 Diaphragmatic hernia without obstruction or gangrene; K64.0 First degree hemorrhoids; R13.12 Dysphagia, oropharyngeal phase; E78.5 Hyperlipidemia, unspecified; E11.9 Type 2 diabetes mellitus without complications; M81.0 Age-related osteoporosis without current pathological fracture; J44.9 Chronic obstructive pulmonary disease, unspecified; K21.9 Gastro-esophageal reflux disease without esophagitis; F32.9 Major depressive disorder, single episode, unspecified; M19.90 Unspecified osteoarthritis, unspecified site; Z79.899 Other long term (current) drug therapy; Z90.49 Acquired absence of other specified parts of digestive tract; Z98.890 Other specified postprocedural states

== ENCOUNTER 2020-05-25 10:06 | Emergency (ER) | payer MEDICAID ==
[~2020-05-25] VITALS: Ht 154.9 cm; Wt 59.0 kg
[~2020-05-25 10:06] MED LIST changes: -OMNICEF300 MG PO
[2020-05-25] MEDS ORDERED: OMNICEF300 MG PO (10:25)
== END 2020-05-25 10:42 | disposition home or self-care (01) ==
LOC: ED 10:06
DX: H66.92 Otitis media, unspecified, left ear (principal); Z79.899 Other long term (current) drug therapy; Z79.82 Long term (current) use of aspirin; Z87.891 Personal history of nicotine dependence

== ENCOUNTER → 2020-07-31 | Outpatient (CLI) | payer MEDICAID ==
[~2020-07-31] MED LIST changes: +OMNICEF300 MG PO
== END | disposition home or self-care (01) ==
LOC: COVID19 14:01
PROVIDERS: ATTEND Family Medicine
DX: Z20.822 Contact with and (suspected) exposure to COVID-19 (principal)

== ENCOUNTER 2020-09-22 12:52 | Emergency (ER) | payer MEDICAID ==
[~2020-09-22] VITALS: Wt 59.0 kg
[2020-09-22 14:18] LABS: BASO % 0.4 % (0.0-1.0); EOS # 0.2 10*3/uL (0.0-0.4); EOS % 2.1 % (1.0-4.0); HEMATOCRIT 42.1 % (37.0-47.0); LYMPH # 1.2 10*3/uL (1.3-4.4); LYMPH % 14.3 % (27.0-41.0); MEAN CELL VOLUME 79.9 fl (81.0-99.0); MEAN CORPUSCULAR HGB 24.5 pg (27.0-31.0); MEAN CORPUSCULAR HGB CONC 30.6 g/dl (33.0-37.0); MEAN PLATELET VOLUME 9.4 fl (9.6-12.3); MONO # 0.7 10*3/uL (0.1-1.0); MONO % 7.8 % (3.0-9.0); NEUT # 6.3 10*3/uL (2.3-7.9); PLATELET COUNT AUTOMATED 281 10*3/uL (130-400); RED BLOOD COUNT 5.27 10*6/uL (4.10-5.10); RED CELL DISTRI WIDTH 13.7 % (0-14.5); WHITE BLOOD COUNT 8.4 10*3/uL (4.8-10.8)
[2020-09-22 14:28] LABS: ACT PARTIAL THROMBO TIME 26.8 SECONDS (20.0-32.1)
[2020-09-22 14:35] LABS: ALBUMIN 3.8 gm/dl (3.1-4.5); ALKALINE PHOSPHATASE 115 U/L (45-117); BUN 15 mg/dl (7-24); CHLORIDE 103 mmol/L (98-107); CREATININE 1.02 mg/dL (0.55-1.02); POTASSIUM 3.6 mmol/L (3.5-5.1); SGOT/AST 11 IU/L (3-35); SGPT/ALT 17 U/L (12-78); SODIUM 139 mmol/L (136-145)
[2020-09-22 14:36] LABS: TROPONIN I < 0.015 ng/ml (<0.045)
[2020-09-22 14:43] LABS: BILIRUBIN Negative (Negative); BLOOD Negative (Negative); CLARITY Clear (Clear); COLOR Yellow (Yellow); GLUCOSE Negative (Negative); KETONE Negative (Negative); LEUKO ESTERASE Negative (Negative); NITRITE Negative (Negative); SPECIFIC GRAVITY <= 1.005 (1.001-1.030); UROBILINOGEN 0.2 E.U./dl (0.0-1.0)
[2020-09-22 14:49] LABS: BACTERIA TRACE; EPITHELIAL CELLS 0-2; RBC 0-2 rbc/hpf (0-2); WBC 0-2 wbc/hpf (0-5)
[2020-09-22 14:54] LABS: URINE AMPHETAMINES < 1000 (1000ng/ml); URINE BARBITURATES < 200 (200ng/ml); URINE BENZODIAZEPINES < 200 (200ng/ml); URINE CANNABINOIDS (THC) < 50 (50ng/ml); URINE COCAINE < 300 (300ng/ml); URINE METHADONE < 300 (300ng/ml); URINE OPIATES < 300 (300ng/ml)
[2020-09-22 14:55] LABS: URINE PHENCYCLIDINE < 25 (25ng/ml)
== END 2020-09-22 17:02 | disposition home or self-care (01) ==
LOC: ED 12:52
PROVIDERS: Nurse Practitioner
DX: G25.2 Other specified forms of tremor (principal); T50.995A Adverse effect of other drugs, medicaments and biological substances, initial encounter; G24.9 Dystonia, unspecified; J44.9 Chronic obstructive pulmonary disease, unspecified; Z79.2 Long term (current) use of antibiotics; Z79.899 Other long term (current) drug therapy; Z79.82 Long term (current) use of aspirin; Z98.890 Other specified postprocedural states; Z98.51 Tubal ligation status; Z90.49 Acquired absence of other specified parts of digestive tract; Z87.891 Personal history of nicotine dependence; Y92.098 Other place in other non-institutional residence as the place of occurrence of the external cause; M19.90 Unspecified osteoarthritis, unspecified site; K21.9 Gastro-esophageal reflux disease without esophagitis; E11.9 Type 2 diabetes mellitus without complications; E78.00 Pure hypercholesterolemia, unspecified; F32.9 Major depressive disorder, single episode, unspecified; M81.0 Age-related osteoporosis without current pathological fracture

== ENCOUNTER → 2021-02-06 | Outpatient (CLI) | payer MEDICAID ==
[~2021-02-06] MED LIST changes: +ATORVASTATIN CA40 M1 PO; +LEVOFLOXACIN500 MG PO; +METOPROLOL SUCC50 M1 PO
== END | disposition home or self-care (01) ==
LOC: RAD 11:46
PROVIDERS: ATTEND Family Medicine
DX: J43.9 Emphysema, unspecified (principal); J84.10 Pulmonary fibrosis, unspecified

== ENCOUNTER 2021-06-03 15:37 | Emergency (ER) | payer MEDICAID ==
[~2021-06-03] VITALS: Ht 154.9 cm; Wt 59.0 kg
== END 2021-06-03 19:03 | disposition home or self-care (01) ==
LOC: ED 15:37
DX: S90.121A Contusion of right lesser toe(s) without damage to nail, initial encounter (principal); Z87.891 Personal history of nicotine dependence; Z79.899 Other long term (current) drug therapy; Z79.82 Long term (current) use of aspirin; W22.8XXA Striking against or struck by other objects, initial encounter; Y93.89 Activity, other specified; Y92.89 Other specified places as the place of occurrence of the external cause; Y99.8 Other external cause status

== ENCOUNTER → 2021-06-30 | Outpatient (CLI) | payer MEDICAID | END | disposition home or self-care (01) | LOC: RAD 14:44 | PROVIDERS: ATTEND Family Medicine | DX: J44.9 Chronic obstructive pulmonary disease, unspecified (principal) ==

== ENCOUNTER → 2021-07-06 | Outpatient (CLI) | payer MEDICAID | END | disposition home or self-care (01) | LOC: MAMMO 14:15 | PROVIDERS: ATTEND Family Medicine | DX: Z12.31 Encounter for screening mammogram for malignant neoplasm of breast (principal) ==

== ENCOUNTER 2021-08-09 05:56 | Emergency (ER) | payer MEDICAID ==
[~2021-08-09] VITALS: Ht 154.9 cm; Wt 58.5 kg
== END 2021-08-09 06:45 | disposition home or self-care (01) ==
LOC: ED 05:56
DX: K21.9 Gastro-esophageal reflux disease without esophagitis (principal); Z79.899 Other long term (current) drug therapy; Z79.82 Long term (current) use of aspirin; Z87.891 Personal history of nicotine dependence

== ENCOUNTER → 2021-09-03 | Outpatient (CLI) | payer MEDICAID ==
[2021-09-03 10:29] LABS: BASO % 0.4 % (0.0-1.0); EOS # 0.1 10*3/uL (0.0-0.4); EOS % 1.3 % (1.0-4.0); HEMATOCRIT 45.8 % (37.0-47.0); LYMPH # 2.7 10*3/uL (1.3-4.4); LYMPH % 28.9 % (27.0-41.0); MEAN CELL VOLUME 80.1 fl (81.0-99.0); MEAN CORPUSCULAR HGB CONC 31.2 g/dl (33.0-37.0); MEAN PLATELET VOLUME 8.8 fl (9.6-12.3); MONO # 0.8 10*3/uL (0.1-1.0); MONO % 8.2 % (3.0-9.0); NEUT # 5.5 10*3/uL (2.3-7.9); NEUT % 58.4 % (47.0-73.0); PLATELET COUNT AUTOMATED 295 10*3/uL (130-400); RED BLOOD COUNT 5.72 10*6/uL (4.10-5.10); RED CELL DISTRI WIDTH 14.1 % (0-14.5); WHITE BLOOD COUNT 9.4 10*3/uL (4.8-10.8)
[2021-09-03 12:18] LABS: FERRITIN 90.4 ng/mL (10.0-291.0)
== END ==
LOC: LAB 10:08
PROVIDERS: ATTEND Family Medicine
DX: J44.9 Chronic obstructive pulmonary disease, unspecified (principal); U07.1 COVID-19; J12.82 Pneumonia due to coronavirus disease 2019; R53.83 Other fatigue

== ENCOUNTER 2021-10-16 17:51 | Emergency (ER) | payer MEDICAID ==
[2021-10-16 18:37] LABS: BASO % 0.4 % (0.0-1.0); EOS # 0.4 10*3/uL (0.0-0.4); EOS % 3.3 % (1.0-4.0); HEMATOCRIT 39.1 % (37.0-47.0); LYMPH # 1.9 10*3/uL (1.3-4.4); LYMPH % 18.1 % (27.0-41.0); MEAN CELL VOLUME 81.1 fl (81.0-99.0); MEAN CORPUSCULAR HGB 25.7 pg (27.0-31.0); MEAN CORPUSCULAR HGB CONC 31.7 g/dl (33.0-37.0); MEAN PLATELET VOLUME 9.7 fl (9.6-12.3); MONO % 9.2 % (3.0-9.0); NEUT # 7.1 10*3/uL (2.3-7.9); NEUT % 68.1 % (47.0-73.0); PLATELET COUNT AUTOMATED 248 10*3/uL (130-400); RED BLOOD COUNT 4.82 10*6/uL (4.10-5.10); RED CELL DISTRI WIDTH 13.6 % (0-14.5); WHITE BLOOD COUNT 10.5 10*3/uL (4.8-10.8)
[2021-10-16 18:55] LABS: ALKALINE PHOSPHATASE 108 U/L (45-117); BUN 10 mg/dl (7-24); CHLORIDE 107 mmol/L (98-107); CREATININE 0.87 mg/dL (0.55-1.02); POTASSIUM 3.9 mmol/L (3.5-5.1); SGPT/ALT 18 U/L (12-78); SODIUM 141 mmol/L (136-145); TOTAL PROTEIN 6.6 gm/dL (6.4-8.2)
[2021-10-16 19:04] LABS: SGOT/AST 14 IU/L (3-35)
== END 2021-10-16 19:42 | disposition home or self-care (01) ==
LOC: ED 17:51
PROVIDERS: Nurse Practitioner Family
DX: M62.831 Muscle spasm of calf (principal); Z87.891 Personal history of nicotine dependence; Z90.49 Acquired absence of other specified parts of digestive tract; Z98.51 Tubal ligation status; Z98.890 Other specified postprocedural states; Z79.899 Other long term (current) drug therapy; Z79.82 Long term (current) use of aspirin

== ENCOUNTER → 2021-11-05 | Outpatient (CLI) | payer MEDICAID | END | disposition home or self-care (01) | LOC: RAD/SH 00:11 | PROVIDERS: ATTEND Family Medicine | DX: R13.10 Dysphagia, unspecified (principal) ==

== ENCOUNTER → 2021-11-24 | Outpatient (CLI) | payer MEDICAID ==
[2021-11-25 04:07] LABS: RHEUMATOID FACTOR 10.8 IU/mL (<14.0)
[2021-11-25 05:08] LABS: HEPATITIS B SURFACE AG Negative (Negative)
[2021-11-25 16:08] LABS: DILUTE PROTHROMBIN TIME 34.9 sec (0.0-47.6); DPT CONFIRM RATIO 1.22 Ratio (0.00-1.34); LUPUS DRVVT 42.1 sec (0.0-47.0); PTT-LA 39.8 sec (0.0-51.9); THROMBIN TIME 16.1 sec (0.0-23.0)
[2021-11-25 17:06] LABS: LUPUS REFLEX INTERPRETATION Comment: (.)
== END | disposition home or self-care (01) ==
LOC: LAB 10:33
PROVIDERS: ATTEND Family Medicine
DX: M47.817 Spondylosis without myelopathy or radiculopathy, lumbosacral region (principal); M25.50 Pain in unspecified joint

== ENCOUNTER → 2022-02-01 | Outpatient (CLI) | payer MEDICAID ==
[~2022-02-01] MED LIST changes: +TUSSIN100 MG/51 PO
== END | disposition home or self-care (01) ==
LOC: COVID19 10:08
PROVIDERS: ATTEND Internal Medicine
DX: Z11.52 Encounter for screening for COVID-19 (principal); Z20.822 Contact with and (suspected) exposure to COVID-19

== ENCOUNTER 2022-02-07 16:06 | Emergency (ER) | payer MEDICAID ==
[~2022-02-07] VITALS: Wt 54.4 kg
[~2022-02-07 16:06] MED LIST changes: -TUSSIN100 MG/51 PO
[2022-02-07] MEDS ORDERED: TUSSIN100 MG/51 PO (18:38)
[2022-02-07] MEDS ORDERED: PREDNISONE20 M1 PO (18:41)
== END 2022-02-07 18:57 | disposition home or self-care (01) ==
LOC: ED 16:06
DX: R05.9 Cough, unspecified (principal); M79.18 Myalgia, other site; Z87.891 Personal history of nicotine dependence; Z90.49 Acquired absence of other specified parts of digestive tract; Z98.51 Tubal ligation status; Z98.890 Other specified postprocedural states; Z79.899 Other long term (current) drug therapy; Z79.2 Long term (current) use of antibiotics

== ENCOUNTER 2022-02-16 10:30 | Emergency (ER) | payer MEDICAID ==
[~2022-02-16] VITALS: Wt 54.4 kg
[~2022-02-16 10:30] MED LIST changes: +TUSSIN100 MG/51 PO
[2022-02-16 11:09] LABS: BASO # 0.1 10*3/uL (0.0-0.1); BASO % 0.4 % (0.0-1.0); EOS # 0.4 10*3/uL (0.0-0.4); EOS % 3.6 % (1.0-4.0); HEMATOCRIT 40.8 % (37.0-47.0); LYMPH % 17.5 % (27.0-41.0); MEAN CELL VOLUME 78.9 fl (81.0-99.0); MEAN CORPUSCULAR HGB 25.3 pg (27.0-31.0); MEAN CORPUSCULAR HGB CONC 32.1 g/dl (33.0-37.0); MEAN PLATELET VOLUME 9.4 fl (9.6-12.3); MONO # 1.1 10*3/uL (0.1-1.0); MONO % 9.9 % (3.0-9.0); NEUT # 7.4 10*3/uL (2.3-7.9); NEUT % 66.2 % (47.0-73.0); PLATELET COUNT AUTOMATED 315 10*3/uL (130-400); RED BLOOD COUNT 5.17 10*6/uL (4.10-5.10); RED CELL DISTRI WIDTH 13.6 % (0-14.5); WHITE BLOOD COUNT 11.2 10*3/uL (4.8-10.8)
[2022-02-16 11:24] LABS: ALKALINE PHOSPHATASE 87 U/L (45-117); BUN 22 mg/dl (7-24); CHLORIDE 106 mmol/L (98-107); CREATININE 1.04 mg/dL (0.55-1.02); LIPASE 229 U/L (73-393); POTASSIUM 4.2 mmol/L (3.5-5.1); SGOT/AST 9 IU/L (3-35); SGPT/ALT 7 U/L (12-78); SODIUM 140 mmol/L (136-145); TOTAL PROTEIN 6.2 gm/dL (6.4-8.2)
[2022-02-16 11:52] LABS: BILIRUBIN Negative (Negative); BLOOD Negative (Negative); CLARITY Clear (Clear); COLOR Yellow (Yellow); GLUCOSE Negative (Negative); KETONE Negative (Negative); LEUKO ESTERASE Negative (Negative); NITRITE Negative (Negative); UROBILINOGEN 0.2 E.U./dl (0.0-1.0)
== END 2022-02-16 12:45 | disposition home or self-care (01) ==
LOC: ED 10:30
PROVIDERS: Emergency Medicine
DX: R07.89 Other chest pain (principal); J40 Bronchitis, not specified as acute or chronic; M79.18 Myalgia, other site; Z87.891 Personal history of nicotine dependence; Z90.49 Acquired absence of other specified parts of digestive tract; Z98.51 Tubal ligation status; Z79.899 Other long term (current) drug therapy; Z79.82 Long term (current) use of aspirin

== ENCOUNTER → 2022-04-02 | Outpatient (CLI) | payer MEDICAID | END | disposition home or self-care (01) | LOC: LAB 09:15 | PROVIDERS: ATTEND Family Medicine | DX: Z51.81 Encounter for therapeutic drug level monitoring (principal) ==

== ENCOUNTER 2022-04-05 08:59 | Emergency (ER) | payer MEDICAID ==
[~2022-04-05] VITALS: Ht 154.9 cm; Wt 54.4 kg
[2022-04-05 10:11] LABS: BASO % 0.5 % (0.0-1.0); EOS # 0.2 10*3/uL (0.0-0.4); EOS % 3.7 % (1.0-4.0); HEMATOCRIT 42.7 % (37.0-47.0); LYMPH # 1.1 10*3/uL (1.3-4.4); LYMPH % 17.1 % (27.0-41.0); MEAN CELL VOLUME 82.4 fl (81.0-99.0); MEAN CORPUSCULAR HGB 26.1 pg (27.0-31.0); MEAN CORPUSCULAR HGB CONC 31.6 g/dl (33.0-37.0); MEAN PLATELET VOLUME 9.8 fl (9.6-12.3); MONO # 0.6 10*3/uL (0.1-1.0); MONO % 9.9 % (3.0-9.0); NEUT # 4.4 10*3/uL (2.3-7.9); NEUT % 67.9 % (47.0-73.0); PLATELET COUNT AUTOMATED 213 10*3/uL (130-400); RED BLOOD COUNT 5.18 10*6/uL (4.10-5.10); RED CELL DISTRI WIDTH 13.7 % (0-14.5); WHITE BLOOD COUNT 6.4 10*3/uL (4.8-10.8)
[2022-04-05 10:27] LABS: ACT PARTIAL THROMBO TIME 26.7 SECONDS (20.0-32.1); ALKALINE PHOSPHATASE 74 U/L (45-117); BUN 10 mg/dl (7-24); CHLORIDE 107 mmol/L (98-107); CREATININE 0.77 mg/dL (0.55-1.02); INTERNATIONAL NORM RATIO 0.9 (2.0-3.5); POTASSIUM 3.9 mmol/L (3.5-5.1); SGOT/AST 19 IU/L (3-35); SGPT/ALT 24 U/L (12-78); SODIUM 143 mmol/L (136-145); TOTAL PROTEIN 6.4 gm/dL (6.4-8.2)
== END 2022-04-05 12:21 | disposition home or self-care (01) ==
LOC: ED 08:59
PROVIDERS: Emergency Medicine
DX: R07.9 Chest pain, unspecified (principal); R51.9 Headache, unspecified; J44.9 Chronic obstructive pulmonary disease, unspecified; K21.9 Gastro-esophageal reflux disease without esophagitis; I10 Essential (primary) hypertension; E78.5 Hyperlipidemia, unspecified; M19.90 Unspecified osteoarthritis, unspecified site; E11.9 Type 2 diabetes mellitus without complications; Z98.51 Tubal ligation status; Z98.890 Other specified postprocedural states; Z90.49 Acquired absence of other specified parts of digestive tract; Z87.891 Personal history of nicotine dependence; Z79.899 Other long term (current) drug therapy

== ENCOUNTER 2022-04-27 10:25 | Emergency (ER) | payer MEDICARE, MEDICAID ==
[~2022-04-27] VITALS: Ht 154.9 cm; Wt 54.4 kg
[2022-04-27 11:29] LABS: BILIRUBIN Negative (Negative); BLOOD Negative (Negative); CLARITY Clear (Clear); COLOR Dark Yellow (Yellow); GLUCOSE Negative (Negative); KETONE Trace (Negative); LEUKO ESTERASE 1+ (Negative); NITRITE Negative (Negative); PH 5.5 (4.5-8.0)
[2022-04-27 11:36] LABS: BASO % 0.4 % (0.0-1.0); EOS # 0.3 10*3/uL (0.0-0.4); EOS % 2.3 % (1.0-4.0); HEMATOCRIT 41.7 % (37.0-47.0); LYMPH # 1.6 10*3/uL (1.3-4.4); MEAN CELL VOLUME 80.3 fl (81.0-99.0); MEAN CORPUSCULAR HGB 25.4 pg (27.0-31.0); MEAN CORPUSCULAR HGB CONC 31.7 g/dl (33.0-37.0); MEAN PLATELET VOLUME 9.5 fl (9.6-12.3); MONO # 0.8 10*3/uL (0.1-1.0); MONO % 7.6 % (3.0-9.0); NEUT # 7.9 10*3/uL (2.3-7.9); PLATELET COUNT AUTOMATED 268 10*3/uL (130-400); RED BLOOD COUNT 5.19 10*6/uL (4.10-5.10); RED CELL DISTRI WIDTH 13.5 % (0-14.5); WHITE BLOOD COUNT 10.7 10*3/uL (4.8-10.8)
[2022-04-27 11:43] LABS: BACTERIA 2+; MUCOUS 1+
[2022-04-27 11:54] LABS: ALKALINE PHOSPHATASE 98 U/L (45-117); BUN 17 mg/dl (7-24); CHLORIDE 106 mmol/L (98-107); CREATININE 0.77 mg/dL (0.55-1.02); POTASSIUM 3.7 mmol/L (3.5-5.1); SGOT/AST 16 IU/L (3-35); SGPT/ALT 9 U/L (12-78); SODIUM 141 mmol/L (136-145); TOTAL PROTEIN 7.4 gm/dL (6.4-8.2)
[2022-04-27] MEDS ORDERED: AMOX-CLAV 875-1 EACH PO (13:07)
[2022-04-27] MEDS ORDERED: ONDANSETRON HYDR4 M1 PO (13:07)
[2022-04-27] MEDS ORDERED: PREDNISONE50 MG PO (13:07)
== END 2022-04-27 13:13 | disposition home or self-care (01) ==
LOC: ED 10:25
PROVIDERS: Student in an Organized Health Care Education/Training Program
DX: N39.0 Urinary tract infection, site not specified (principal); Z20.822 Contact with and (suspected) exposure to COVID-19; J40 Bronchitis, not specified as acute or chronic; Z90.49 Acquired absence of other specified parts of digestive tract; Z98.890 Other specified postprocedural states; Z79.82 Long term (current) use of aspirin; Z79.899 Other long term (current) drug therapy

== ENCOUNTER → 2022-04-30 | Outpatient (CLI) | payer MEDICARE, MEDICAID ==
[~2022-04-30] MED LIST changes: +AMOX-CLAV 875-1 EACH PO; +ONDANSETRON HYDR4 M1 PO
== END | disposition home or self-care (01) ==
LOC: RAD 10:10
PROVIDERS: ATTEND Family Medicine
DX: M19.011 Primary osteoarthritis, right shoulder (principal); I70.0 Atherosclerosis of aorta; M47.819 Spondylosis without myelopathy or radiculopathy, site unspecified

== ENCOUNTER → 2022-06-17 | Outpatient (CLI) | payer MEDICARE, MEDICAID | END | disposition home or self-care (01) | LOC: CT 11:00 | PROVIDERS: ATTEND Internal Medicine Critical Care Medicine | DX: J43.2 Centrilobular emphysema (principal); R91.1 Solitary pulmonary nodule; Z87.891 Personal history of nicotine dependence; Z86.16 Personal history of COVID-19 ==

== ENCOUNTER 2022-07-12 14:21 | Emergency (ER) | payer MEDICARE, MEDICAID ==
[~2022-07-12] VITALS: Wt 51.3 kg
[2022-07-12 16:50] LABS: BASO % 0.3 % (0.0-1.0); EOS # 0.1 10*3/uL (0.0-0.4); EOS % 0.9 % (1.0-4.0); HEMATOCRIT 41.9 % (37.0-47.0); LYMPH # 1.9 10*3/uL (1.3-4.4); LYMPH % 17.8 % (27.0-41.0); MEAN CORPUSCULAR HGB 24.6 pg (27.0-31.0); MEAN CORPUSCULAR HGB CONC 31.5 g/dl (33.0-37.0); MEAN PLATELET VOLUME 9.7 fl (9.6-12.3); MONO # 0.8 10*3/uL (0.1-1.0); MONO % 7.7 % (3.0-9.0); NEUT # 7.7 10*3/uL (2.3-7.9); NEUT % 72.9 % (47.0-73.0); PLATELET COUNT AUTOMATED 314 10*3/uL (130-400); RED BLOOD COUNT 5.37 10*6/uL (4.10-5.10); RED CELL DISTRI WIDTH 13.5 % (0-14.5); WHITE BLOOD COUNT 10.6 10*3/uL (4.8-10.8)
[2022-07-12 17:22] LABS: ALKALINE PHOSPHATASE 88 U/L (46-116); BUN 16 mg/dl (9-23); CHLORIDE 104 mmol/L (98-107); POTASSIUM 4.1 mmol/L (3.4-5.1); TOTAL PROTEIN 6.3 gm/dL (6.0-8.0)
[2022-07-12 17:26] LABS: SGPT/ALT < 7 U/L (10-49)
[2022-07-12 17:33] LABS: BILIRUBIN Negative (Negative); BLOOD Negative (Negative); CLARITY Clear (Clear); COLOR Dark Yellow (Yellow); GLUCOSE Negative (Negative); KETONE Trace (Negative); LEUKO ESTERASE 1+ (Negative); NITRITE Negative (Negative); SPECIFIC GRAVITY >= 1.030 (1.001-1.030)
[2022-07-12 17:58] LABS: RBC 0-2 rbc/hpf (0-2)
[2022-07-12] MEDS ORDERED: METRONIDAZOLE500 M1 PO (21:43)
[2022-07-12] MEDS ORDERED: PREDNISONE20 M1 PO (21:43)
[2022-07-12] MEDS ORDERED: CIPRO500 MG PO (21:43)
== END 2022-07-12 21:44 | disposition home or self-care (01) ==
LOC: ED 14:21
PROVIDERS: Student in an Organized Health Care Education/Training Program
DX: K57.30 Diverticulosis of large intestine without perforation or abscess without bleeding (principal); J40 Bronchitis, not specified as acute or chronic; E87.20 Acidosis, unspecified; Z98.51 Tubal ligation status; Z90.49 Acquired absence of other specified parts of digestive tract; Z98.890 Other specified postprocedural states; Z87.891 Personal history of nicotine dependence; F10.20 Alcohol dependence, uncomplicated; Z20.822 Contact with and (suspected) exposure to COVID-19

== ENCOUNTER → 2022-07-29 | Outpatient (CLI) | payer MEDICARE, MEDICAID ==
[~2022-07-29] MED LIST changes: +METRONIDAZOLE500 M1 PO
== END | disposition home or self-care (01) ==
LOC: US 03:17
PROVIDERS: ATTEND Family Medicine
DX: D25.2 Subserosal leiomyoma of uterus (principal); Z86.018 Personal history of other benign neoplasm

== ENCOUNTER → 2022-08-02 | Outpatient (CLI) | payer MEDICARE, MEDICAID | END | disposition home or self-care (01) | LOC: RAD 13:33 | PROVIDERS: ATTEND Family Medicine | DX: J43.9 Emphysema, unspecified (principal); M40.294 Other kyphosis, thoracic region ==

== ENCOUNTER 2022-08-25 14:34 | Emergency (ER) | payer OTHER, MEDICAID ==
[~2022-08-25] VITALS: Ht 154.9 cm; Wt 47.2 kg
[2022-08-25 15:00] LABS: BASO % 0.4 % (0.0-1.0); EOS # 0.3 10*3/uL (0.0-0.4); EOS % 2.6 % (1.0-4.0); HEMATOCRIT 42.4 % (37.0-47.0); LYMPH # 1.3 10*3/uL (1.3-4.4); LYMPH % 12.5 % (27.0-41.0); MEAN CELL VOLUME 80.6 fl (81.0-99.0); MEAN CORPUSCULAR HGB 24.7 pg (27.0-31.0); MEAN CORPUSCULAR HGB CONC 30.7 g/dl (33.0-37.0); MEAN PLATELET VOLUME 9.3 fl (9.6-12.3); MONO # 0.9 10*3/uL (0.1-1.0); MONO % 8.8 % (3.0-9.0); NEUT % 74.9 % (47.0-73.0); PLATELET COUNT AUTOMATED 319 10*3/uL (130-400); RED BLOOD COUNT 5.26 10*6/uL (4.10-5.10); RED CELL DISTRI WIDTH 13.8 % (0-14.5); WHITE BLOOD COUNT 10.7 10*3/uL (4.8-10.8)
[2022-08-25 15:15] LABS: ALKALINE PHOSPHATASE 71 U/L (46-116); BUN 25 mg/dl (9-23); CHLORIDE 97 mmol/L (98-107); LIPASE 37 U/L (12-53); POTASSIUM 3.9 mmol/L (3.4-5.1); TOTAL PROTEIN 6.7 gm/dL (6.0-8.0)
[2022-08-25 15:17] LABS: SGPT/ALT < 7 U/L (10-49)
[2022-08-25] MEDS ORDERED: Ondansetron4 MG PO (16:58)
[2022-08-25] MEDS ORDERED: CIPRO500 MG PO (16:58)
[2022-08-25] MEDS ORDERED: FLAGYL 375375 MG PO (16:58)
== END 2022-08-25 17:43 | disposition home or self-care (01) ==
LOC: ED 14:34
PROVIDERS: Emergency Medicine
DX: K57.32 Diverticulitis of large intestine without perforation or abscess without bleeding (principal); R10.32 Left lower quadrant pain; Z98.51 Tubal ligation status; Z90.49 Acquired absence of other specified parts of digestive tract; Z98.890 Other specified postprocedural states; Z87.891 Personal history of nicotine dependence

== ENCOUNTER 2022-09-12 11:59 | Emergency (ER) | payer OTHER, MEDICAID ==
[~2022-09-12] VITALS: Ht 152.4 cm; Wt 51.0 kg
[~2022-09-12 11:59] MED LIST changes: +FLAGYL 375375 MG PO; +Ondansetron4 MG PO
[2022-09-12] MEDS ORDERED: PREDNISONE50 MG PO (13:40)
[2022-09-12] MEDS ORDERED: AMOX-CLAV 875-1 EACH PO (13:40)
== END 2022-09-12 13:56 | disposition home or self-care (01) ==
LOC: ED 11:59
DX: J32.9 Chronic sinusitis, unspecified (principal); H83.03 Labyrinthitis, bilateral; M19.90 Unspecified osteoarthritis, unspecified site; K21.9 Gastro-esophageal reflux disease without esophagitis; J44.9 Chronic obstructive pulmonary disease, unspecified; E11.9 Type 2 diabetes mellitus without complications; F32.A Depression, unspecified; Z98.51 Tubal ligation status; Z90.49 Acquired absence of other specified parts of digestive tract; Z98.890 Other specified postprocedural states; Z87.891 Personal history of nicotine dependence

== ENCOUNTER → 2022-10-26 | Outpatient (CLI) | payer MEDICARE, OTHER | END | disposition home or self-care (01) | LOC: RAD 15:22 | PROVIDERS: ATTEND Nurse Practitioner Family | DX: J44.1 Chronic obstructive pulmonary disease with (acute) exacerbation (principal); R06.2 Wheezing; R05.9 Cough, unspecified ==

== ENCOUNTER 2022-11-02 07:49 | Emergency (ER) | payer MEDICARE, OTHER ==
[~2022-11-02] VITALS: Ht 154.9 cm; Wt 47.2 kg
[2022-11-02] MEDS ORDERED: ZITHROMAX250 MG PO (09:12)
== END 2022-11-02 09:34 | disposition home or self-care (01) ==
LOC: ED 07:49
DX: J01.90 Acute sinusitis, unspecified (principal); J44.9 Chronic obstructive pulmonary disease, unspecified; J02.9 Acute pharyngitis, unspecified; M19.90 Unspecified osteoarthritis, unspecified site; K21.9 Gastro-esophageal reflux disease without esophagitis; E11.9 Type 2 diabetes mellitus without complications; E78.00 Pure hypercholesterolemia, unspecified; F32.A Depression, unspecified; M81.0 Age-related osteoporosis without current pathological fracture; Z98.890 Other specified postprocedural states; Z98.51 Tubal ligation status; Z90.49 Acquired absence of other specified parts of digestive tract; Z87.891 Personal history of nicotine dependence

== ENCOUNTER → 2022-11-26 | Outpatient (CLI) | payer MEDICARE, OTHER | END | disposition home or self-care (01) | LOC: US 01:44 | PROVIDERS: ATTEND Nurse Practitioner Women's Health | DX: D25.9 Leiomyoma of uterus, unspecified (principal); N94.10 Unspecified dyspareunia ==

== ENCOUNTER 2022-11-27 11:34 | Emergency (ER) | payer MEDICARE, OTHER ==
[~2022-11-27] VITALS: Ht 154.9 cm; Wt 47.2 kg
[2022-11-27 12:26] LABS: BASO % 0.5 % (0.0-1.0); EOS # 0.2 10*3/uL (0.0-0.4); EOS % 2.2 % (1.0-4.0); HEMATOCRIT 39.2 % (37.0-47.0); LYMPH # 1.5 10*3/uL (1.3-4.4); LYMPH % 19.8 % (27.0-41.0); MEAN CELL VOLUME 79.7 fl (81.0-99.0); MEAN CORPUSCULAR HGB 24.4 pg (27.0-31.0); MEAN CORPUSCULAR HGB CONC 30.6 g/dl (33.0-37.0); MEAN PLATELET VOLUME 9.3 fl (9.6-12.3); MONO # 0.6 10*3/uL (0.1-1.0); MONO % 7.3 % (3.0-9.0); NEUT # 5.3 10*3/uL (2.3-7.9); NEUT % 69.4 % (47.0-73.0); PLATELET COUNT AUTOMATED 211 10*3/uL (130-400); RED BLOOD COUNT 4.92 10*6/uL (4.10-5.10); RED CELL DISTRI WIDTH 13.8 % (0-14.5); WHITE BLOOD COUNT 7.6 10*3/uL (4.8-10.8)
[2022-11-27 12:53] LABS: ALKALINE PHOSPHATASE 76 U/L (46-116); BUN 9 mg/dl (9-23); CHLORIDE 105 mmol/L (98-107); TOTAL PROTEIN 6.1 gm/dL (6.0-8.0)
[2022-11-27 12:55] LABS: SGPT/ALT < 7 U/L (10-49)
[2022-11-27] MEDS ORDERED: AMOX-CLAV 875-1 EACH PO (13:09)
[2022-11-27] MEDS ORDERED: PREDNISONE50 MG PO (13:09)
== END 2022-11-27 13:14 | disposition home or self-care (01) ==
LOC: ED 11:34
PROVIDERS: Student in an Organized Health Care Education/Training Program
DX: J32.9 Chronic sinusitis, unspecified (principal); M19.90 Unspecified osteoarthritis, unspecified site; K21.9 Gastro-esophageal reflux disease without esophagitis; J44.9 Chronic obstructive pulmonary disease, unspecified; E11.9 Type 2 diabetes mellitus without complications; E78.00 Pure hypercholesterolemia, unspecified; F32.A Depression, unspecified; Z98.51 Tubal ligation status; Z90.49 Acquired absence of other specified parts of digestive tract; Z98.890 Other specified postprocedural states; Z87.891 Personal history of nicotine dependence; Z20.822 Contact with and (suspected) exposure to COVID-19

== ENCOUNTER → 2022-12-14 | Outpatient (CLI) | payer MEDICARE, OTHER ==
[2022-12-14 09:40] LABS: BASO % 0.3 % (0.0-1.0); EOS # 0.1 10*3/uL (0.0-0.4); EOS % 0.8 % (1.0-4.0); HEMATOCRIT 43.1 % (37.0-47.0); LYMPH # 1.7 10*3/uL (1.3-4.4); LYMPH % 12.5 % (27.0-41.0); MEAN CELL VOLUME 79.4 fl (81.0-99.0); MEAN CORPUSCULAR HGB 24.3 pg (27.0-31.0); MEAN CORPUSCULAR HGB CONC 30.6 g/dl (33.0-37.0); MEAN PLATELET VOLUME 9.2 fl (9.6-12.3); MONO # 1.2 10*3/uL (0.1-1.0); MONO % 8.8 % (3.0-9.0); NEUT # 10.2 10*3/uL (2.3-7.9); NEUT % 76.8 % (47.0-73.0); PLATELET COUNT AUTOMATED 248 10*3/uL (130-400); RED BLOOD COUNT 5.43 10*6/uL (4.10-5.10); WHITE BLOOD COUNT 13.2 10*3/uL (4.8-10.8)
[2022-12-14 10:03] LABS: ALKALINE PHOSPHATASE 75 U/L (46-116); BUN 16 mg/dl (9-23); CHLORIDE 104 mmol/L (98-107); CHOLESTEROL 184 mg/dL (<200); LDL CHOLESTEROL 87 mg/dL (9-159); POTASSIUM 4.1 mmol/L (3.4-5.1); SGPT/ALT 10 U/L (10-49); TOTAL PROTEIN 6.6 gm/dL (6.0-8.0); TRIGLYCERIDES 198 mg/dl (<150)
== END | disposition home or self-care (01) ==
LOC: LAB 09:14
PROVIDERS: ATTEND Nurse Practitioner Family
DX: E11.9 Type 2 diabetes mellitus without complications (principal); I10 Essential (primary) hypertension; D72.829 Elevated white blood cell count, unspecified; E78.2 Mixed hyperlipidemia

== ENCOUNTER 2022-12-24 13:37 | Emergency (ER) | payer MEDICARE, OTHER ==
[~2022-12-24] VITALS: Ht 154.9 cm; Wt 48.5 kg
[2022-12-24 15:13] LABS: BASO % 0.5 % (0.0-1.0); EOS # 0.1 10*3/uL (0.0-0.4); EOS % 1.4 % (1.0-4.0); HEMATOCRIT 41.6 % (37.0-47.0); LYMPH # 1.1 10*3/uL (1.3-4.4); LYMPH % 18.8 % (27.0-41.0); MEAN CELL VOLUME 79.8 fl (81.0-99.0); MEAN CORPUSCULAR HGB CONC 31.3 g/dl (33.0-37.0); MEAN PLATELET VOLUME 9.2 fl (9.6-12.3); MONO # 0.5 10*3/uL (0.1-1.0); MONO % 8.4 % (3.0-9.0); NEUT % 70.2 % (47.0-73.0); PLATELET COUNT AUTOMATED 178 10*3/uL (130-400); RED BLOOD COUNT 5.21 10*6/uL (4.10-5.10); RED CELL DISTRI WIDTH 13.8 % (0-14.5); WHITE BLOOD COUNT 5.7 10*3/uL (4.8-10.8)
[2022-12-24 15:40] LABS: ALKALINE PHOSPHATASE 74 U/L (46-116); BUN 15 mg/dl (9-23); CHLORIDE 102 mmol/L (98-107); POTASSIUM 3.9 mmol/L (3.4-5.1); SGPT/ALT 9 U/L (10-49); TOTAL PROTEIN 6.2 gm/dL (6.0-8.0)
[2022-12-24] MEDS ORDERED: PREDNISONE50 MG PO (16:07)
[2022-12-24] MEDS ORDERED: REGLAN10 M1 PO (16:07)
[2022-12-24] MEDS ORDERED: AMOX-CLAV 875-1 EACH PO (16:07)
== END 2022-12-24 18:36 | disposition home or self-care (01) ==
LOC: ED 13:37
PROVIDERS: Internal Medicine
DX: G43.909 Migraine, unspecified, not intractable, without status migrainosus (principal); H66.91 Otitis media, unspecified, right ear; R11.0 Nausea; M19.90 Unspecified osteoarthritis, unspecified site; K21.9 Gastro-esophageal reflux disease without esophagitis; J44.9 Chronic obstructive pulmonary disease, unspecified; E11.9 Type 2 diabetes mellitus without complications; F32.A Depression, unspecified; M81.0 Age-related osteoporosis without current pathological fracture; Z90.49 Acquired absence of other specified parts of digestive tract; Z98.51 Tubal ligation status; Z98.890 Other specified postprocedural states; Z87.891 Personal history of nicotine dependence

== ENCOUNTER 2023-02-07 17:05 | Emergency (ER) | payer MEDICARE, OTHER ==
[~2023-02-07] VITALS: Ht 162.5 cm; Wt 65.8 kg
[~2023-02-07 17:05] MED LIST changes: +REGLAN10 M1 PO
[2023-02-07 18:57] LABS: BASO % 0.4 % (0.0-1.0); EOS # 0.2 10*3/uL (0.0-0.4); EOS % 2.8 % (1.0-4.0); HEMATOCRIT 38.2 % (37.0-47.0); LYMPH # 1.5 10*3/uL (1.3-4.4); LYMPH % 19.2 % (27.0-41.0); MEAN CELL VOLUME 79.9 fl (81.0-99.0); MEAN CORPUSCULAR HGB 25.1 pg (27.0-31.0); MEAN CORPUSCULAR HGB CONC 31.4 g/dl (33.0-37.0); MEAN PLATELET VOLUME 9.5 fl (9.6-12.3); MONO # 0.8 10*3/uL (0.1-1.0); MONO % 9.5 % (3.0-9.0); NEUT # 5.4 10*3/uL (2.3-7.9); NEUT % 67.8 % (47.0-73.0); PLATELET COUNT AUTOMATED 205 10*3/uL (130-400); RED BLOOD COUNT 4.78 10*6/uL (4.10-5.10); RED CELL DISTRI WIDTH 14.1 % (0-14.5); WHITE BLOOD COUNT 7.9 10*3/uL (4.8-10.8)
[2023-02-07 19:16] LABS: ACT PARTIAL THROMBO TIME 25.3 SECONDS (20.0-32.1)
[2023-02-07 19:29] LABS: ALKALINE PHOSPHATASE 75 U/L (46-116); BUN 12 mg/dl (9-23); CHLORIDE 105 mmol/L (98-107); LIPASE 52 U/L (12-53); POTASSIUM 4.6 mmol/L (3.4-5.1); TOTAL PROTEIN 6.1 gm/dL (6.0-8.0)
[2023-02-07 20:01] LABS: BILIRUBIN Negative (Negative); BLOOD Negative (Negative); CLARITY Clear (Clear); COLOR Yellow (Yellow); GLUCOSE Negative (Negative); KETONE Negative (Negative); LEUKO ESTERASE Trace (Negative); NITRITE Negative (Negative); PH 5.5 (4.5-8.0); SPECIFIC GRAVITY 1.015 (1.001-1.030); UROBILINOGEN 0.2 E.U./dl (0.0-1.0)
[2023-02-07 20:05] LABS: SGPT/ALT < 7 U/L (10-49)
[2023-02-07 20:12] LABS: EPITHELIAL CELLS 0-2; HYALINE CAST 0-2
[2023-02-08] MEDS ORDERED: MEDROL DOSEPAK4 MG PO (00:02)
== END 2023-02-08 00:28 | disposition home or self-care (01) ==
LOC: ED 17:05
PROVIDERS: Nurse Practitioner
DX: S29.012A Strain of muscle and tendon of back wall of thorax, initial encounter (principal); J44.9 Chronic obstructive pulmonary disease, unspecified; M19.90 Unspecified osteoarthritis, unspecified site; K21.9 Gastro-esophageal reflux disease without esophagitis; E11.9 Type 2 diabetes mellitus without complications; E78.00 Pure hypercholesterolemia, unspecified; F32.A Depression, unspecified; X58.XXXA Exposure to other specified factors, initial encounter; Y93.89 Activity, other specified; Y92.89 Other specified places as the place of occurrence of the external cause; Y99.8 Other external cause status

== ENCOUNTER → 2023-02-11 | Outpatient (CLI) | payer OTHER ==
[~2023-02-11] MED LIST changes: +MEDROL DOSEPAK4 MG PO
== END | disposition home or self-care (01) ==
LOC: MRI 01:18
PROVIDERS: ATTEND Nurse Practitioner Family
DX: K57.32 Diverticulitis of large intestine without perforation or abscess without bleeding (principal); N28.1 Cyst of kidney, acquired; D73.89 Other diseases of spleen; K86.9 Disease of pancreas, unspecified; Z90.49 Acquired absence of other specified parts of digestive tract

== ENCOUNTER 2023-02-15 15:56 | Emergency (ER) | payer OTHER ==
[~2023-02-15] VITALS: Ht 154.9 cm; Wt 47.6 kg
== END 2023-02-15 21:08 | disposition home or self-care (01) ==
LOC: ED 15:56
DX: R07.81 Pleurodynia (principal); M19.90 Unspecified osteoarthritis, unspecified site; K21.9 Gastro-esophageal reflux disease without esophagitis; J44.9 Chronic obstructive pulmonary disease, unspecified; E11.9 Type 2 diabetes mellitus without complications; E78.00 Pure hypercholesterolemia, unspecified; F32.A Depression, unspecified; Z90.49 Acquired absence of other specified parts of digestive tract; Z98.890 Other specified postprocedural states; Z98.51 Tubal ligation status; Z87.891 Personal history of nicotine dependence

== ENCOUNTER 2023-02-16 23:41 | Emergency (ER) | payer OTHER ==
[~2023-02-16] VITALS: Ht 154.9 cm; Wt 47.2 kg
[2023-02-17] MEDS ORDERED: MELOXICAM15 MG PO (03:32)
== END 2023-02-17 03:55 | disposition home or self-care (01) ==
LOC: ED 23:41
DX: R07.81 Pleurodynia (principal); M19.90 Unspecified osteoarthritis, unspecified site; K21.9 Gastro-esophageal reflux disease without esophagitis; J44.9 Chronic obstructive pulmonary disease, unspecified; E11.9 Type 2 diabetes mellitus without complications; E78.00 Pure hypercholesterolemia, unspecified; F32.A Depression, unspecified; Z90.49 Acquired absence of other specified parts of digestive tract; Z98.51 Tubal ligation status; Z98.890 Other specified postprocedural states; Z87.891 Personal history of nicotine dependence

== ENCOUNTER → 2023-06-24 | Outpatient (CLI) | payer OTHER ==
[~2023-06-24] MED LIST changes: +MELOXICAM15 MG PO
== END | disposition home or self-care (01) ==
LOC: RAD 02:17
PROVIDERS: ATTEND Nurse Practitioner Family
DX: M81.0 Age-related osteoporosis without current pathological fracture (principal)

== ENCOUNTER 2023-07-08 10:53 | Emergency (ER) | payer OTHER ==
[~2023-07-08] VITALS: Ht 154.9 cm; Wt 47.6 kg
[2023-07-08 12:22] LABS: BASO % 0.2 % (0.0-1.0); EOS % 0.4 % (1.0-4.0); HEMATOCRIT 40.6 % (37.0-47.0); LYMPH # 1.1 10*3/uL (1.3-4.4); LYMPH % 9.3 % (27.0-41.0); MEAN CELL VOLUME 79.3 fl (81.0-99.0); MEAN CORPUSCULAR HGB CONC 30.3 g/dl (33.0-37.0); MEAN PLATELET VOLUME 9.8 fl (9.6-12.3); MONO # 1.1 10*3/uL (0.1-1.0); MONO % 10.1 % (3.0-9.0); NEUT % 79.6 % (47.0-73.0); PLATELET COUNT AUTOMATED 168 10*3/uL (130-400); RED BLOOD COUNT 5.12 10*6/uL (4.10-5.10); RED CELL DISTRI WIDTH 13.5 % (0-14.5); WHITE BLOOD COUNT 11.3 10*3/uL (4.8-10.8)
[2023-07-08 12:40] LABS: ALKALINE PHOSPHATASE 83 U/L (46-116); BUN 12 mg/dl (9-23); CHLORIDE 105 mmol/L (98-107); POTASSIUM 3.8 mmol/L (3.4-5.1); TOTAL PROTEIN 6.7 gm/dL (6.0-8.0)
[2023-07-08 12:45] LABS: SGPT/ALT < 7 U/L (5-49)
[2023-07-08] MEDS ORDERED: AMOX-CLAV 875-1 EACH PO (13:03)
[2023-07-08] MEDS ORDERED: PREDNISONE50 MG PO (13:03)
[2023-07-08] MEDS ORDERED: VIBRAMYCIN100 MG PO (13:03)
== END 2023-07-08 13:14 | disposition home or self-care (01) ==
LOC: ED 10:53
PROVIDERS: Physician Assistant Medical
DX: J18.9 Pneumonia, unspecified organism (principal); J44.9 Chronic obstructive pulmonary disease, unspecified; I10 Essential (primary) hypertension; K21.9 Gastro-esophageal reflux disease without esophagitis; E78.5 Hyperlipidemia, unspecified; M19.90 Unspecified osteoarthritis, unspecified site; E11.9 Type 2 diabetes mellitus without complications; E78.00 Pure hypercholesterolemia, unspecified; F32.A Depression, unspecified; Z98.51 Tubal ligation status; Z90.49 Acquired absence of other specified parts of digestive tract; Z98.890 Other specified postprocedural states; Z87.891 Personal history of nicotine dependence; Z20.822 Contact with and (suspected) exposure to COVID-19

== ENCOUNTER → 2023-08-02 | Outpatient (CLI) | payer OTHER | END | disposition home or self-care (01) | LOC: MAMMO 07-12 01:15 | PROVIDERS: ATTEND Nurse Practitioner Family | DX: Z12.31 Encounter for screening mammogram for malignant neoplasm of breast (principal) ==

== ENCOUNTER → 2023-08-16 | Outpatient (CLI) | payer OTHER ==
[2023-08-16 10:49] LABS: BASO % 0.4 % (0.0-1.0); EOS # 0.1 10*3/uL (0.0-0.4); EOS % 2.6 % (1.0-4.0); LYMPH # 0.9 10*3/uL (1.3-4.4); LYMPH % 17.3 % (27.0-41.0); MEAN CELL VOLUME 81.7 fl (81.0-99.0); MEAN CORPUSCULAR HGB 23.8 pg (27.0-31.0); MEAN CORPUSCULAR HGB CONC 29.1 g/dl (33.0-37.0); MONO # 0.6 10*3/uL (0.1-1.0); MONO % 12.4 % (3.0-9.0); NEUT # 3.3 10*3/uL (2.3-7.9); NEUT % 66.7 % (47.0-73.0); PLATELET COUNT AUTOMATED 173 10*3/uL (130-400); RED BLOOD COUNT 5.51 10*6/uL (4.10-5.10); RED CELL DISTRI WIDTH 14.6 % (0-14.5); WHITE BLOOD COUNT 4.9 10*3/uL (4.8-10.8)
[2023-08-16 11:13] LABS: ALKALINE PHOSPHATASE 90 U/L (46-116); BUN 16 mg/dl (9-23); CHLORIDE 101 mmol/L (98-107); POTASSIUM 4.1 mmol/L (3.4-5.1); TOTAL PROTEIN 6.4 gm/dL (6.0-8.0)
[2023-08-16 11:17] LABS: SGPT/ALT < 7 U/L (5-49)
== END | disposition home or self-care (01) ==
LOC: LAB 09:59
PROVIDERS: ATTEND Internal Medicine
DX: K86.2 Cyst of pancreas (principal)

== ENCOUNTER 2023-09-23 17:12 | Inpatient (IN) | payer OTHER ==
[~2023-09-23] VITALS: Ht 152.4 cm; Wt 46.9 kg
[~2023-09-23 17:12] MED LIST changes: +AIMOVIG AU70 MG/1 ML SQ
[2023-09-23 17:22] VITALS: BP 150/79
[2023-09-23] MEDS ORDERED: Albuterol Sulf/Ipratropium 3 ML VIAL NEB ONE (17:35)
[2023-09-23] MEDS ORDERED: methylPREDNISolone sod succ 125 MG VIAL IV ONE (17:35)
[2023-09-23 17:56] LABS: BASO % 0.3 % (0.0-1.0); EOS # 0.3 10*3/uL (0.0-0.4); EOS % 2.4 % (1.0-4.0); HEMATOCRIT 45.1 % (37.0-47.0); LYMPH # 1.1 10*3/uL (1.3-4.4); LYMPH % 10.7 % (27.0-41.0); MEAN CELL VOLUME 80.7 fl (81.0-99.0); MEAN CORPUSCULAR HGB 23.3 pg (27.0-31.0); MEAN CORPUSCULAR HGB CONC 28.8 g/dl (33.0-37.0); MEAN PLATELET VOLUME 9.6 fl (9.6-12.3); MONO # 0.6 10*3/uL (0.1-1.0); NEUT # 8.5 10*3/uL (2.3-7.9); NEUT % 80.3 % (47.0-73.0); PLATELET COUNT AUTOMATED 193 10*3/uL (130-400); RED BLOOD COUNT 5.59 10*6/uL (4.10-5.10); RED CELL DISTRI WIDTH 13.5 % (0-14.5); WHITE BLOOD COUNT 10.6 10*3/uL (4.8-10.8)
[2023-09-23 18:18] LABS: ALKALINE PHOSPHATASE 113 U/L (46-116); BUN 11 mg/dl (9-23); CHLORIDE 101 mmol/L (98-107); POTASSIUM 3.6 mmol/L (3.4-5.1); SGPT/ALT < 7 U/L (5-49); TOTAL PROTEIN 6.9 gm/dL (6.0-8.0)
[2023-09-23] MEDS ORDERED: Sinemet Cr 25-11 TAB PO (18:51)
[2023-09-23] MEDS ORDERED: TOPAMAX25 M3 PO (18:52)
[2023-09-23] MEDS ORDERED: ZOLOFT100 MG PO (18:52)
[2023-09-23] MEDS ORDERED: Ondansetron Hydrochloride 4 MG TAB PO ONE (18:55)
[2023-09-23] MEDS ORDERED: ACETAMINOPHEN 325 MG TAB PO ONE (18:55)
[2023-09-23] MEDS ORDERED: LAC-HYDRIN FIV226 GM T (18:55)
[2023-09-23] MEDS ORDERED: VOLTAREN ARTHRI20 GM T (18:56)
[2023-09-23] MEDS ORDERED: OXYGEN NAS (19:01)
[2023-09-23] MEDS ORDERED: Ceftriaxone Sodium 1 GM/10 ML SYR IV ONE (19:25)
[2023-09-23] MEDS ORDERED: AZITHROMYCIN 250 ML IV ONE (19:25)
[2023-09-23 19:39] VITALS: BP 169/82
[2023-09-23] MEDS ORDERED: SODIUM CHLORIDE 0.9% 1,000 ML IV SCH (19:40)
[2023-09-23] MEDS ORDERED: SODIUM CHLORIDE 0.9% 500 ML IV ONE (19:59)
[2023-09-23] MEDS ORDERED: Acetaminophen/Hydrocodone 5 MG/325 MG TABLET PO PRN (20:15)
[2023-09-23] MEDS ORDERED: Ondansetron Hydrochloride 4 MG/2 ML VIAL IV PRN (20:15)
[2023-09-23] MEDS ORDERED: ACETAMINOPHEN 325 MG TAB PO PRN (20:15)
[2023-09-23] MEDS ORDERED: BISACODYL 10 MG SUPP R PRN (20:15)
[2023-09-23] MEDS ORDERED: Magnesium Hydroxide 30 ML UDC PO PRN (20:15)
[2023-09-23] MEDS ORDERED: BISACODYL 5 MG TAB PO PRN (20:15)
[2023-09-23] MEDS ORDERED: Levalbuterol Hydrochloride 0.63 MG VIAL NEB PRN (20:20)
[2023-09-23] MEDS ORDERED: GUAIFENESIN 600 MG TAB ER PO PRN (20:20)
[2023-09-23] MEDS ORDERED: IOHEXOL 350 MG/ML 100 ML VIAL IV ONE (20:25)
[2023-09-23] MEDS ORDERED: SODIUM CHLORIDE 0.9% 100 ML BAG IV ONE (20:25)
[2023-09-23 21:44] VITALS: BP 129/74
[2023-09-23 21:59] VITALS: BP 124/67
[2023-09-23 23:01] VITALS: BP 145/84
[2023-09-24] VITALS (7 sets, daily range): BP systolic 130–171; BP diastolic 59–78
[2023-09-24 07:18] LABS: BASO % 0.1 % (0.0-1.0); HEMATOCRIT 39.8 % (37.0-47.0); LYMPH # 0.8 10*3/uL (1.3-4.4); LYMPH % 9.1 % (27.0-41.0); MEAN CELL VOLUME 80.6 fl (81.0-99.0); MEAN CORPUSCULAR HGB 23.7 pg (27.0-31.0); MEAN CORPUSCULAR HGB CONC 29.4 g/dl (33.0-37.0); MEAN PLATELET VOLUME 9.9 fl (9.6-12.3); MONO # 0.4 10*3/uL (0.1-1.0); MONO % 4.5 % (3.0-9.0); NEUT # 7.1 10*3/uL (2.3-7.9); NEUT % 85.9 % (47.0-73.0); PLATELET COUNT AUTOMATED 175 10*3/uL (130-400); RED BLOOD COUNT 4.94 10*6/uL (4.10-5.10); RED CELL DISTRI WIDTH 13.6 % (0-14.5); WHITE BLOOD COUNT 8.3 10*3/uL (4.8-10.8)
[2023-09-24 07:55] LABS: BUN 12 mg/dl (9-23); CHLORIDE 104 mmol/L (98-107); CHOLESTEROL 185 mg/dL (<200); LDL CHOLESTEROL 119 mg/dL (9-159); TRIGLYCERIDES 116 mg/dl (<150)
[2023-09-24 08:12] LABS: POTASSIUM 5.1 mmol/L (3.4-5.1)
[2023-09-24] MEDS ORDERED: methylPREDNISolone sod succ 40 MG VIAL IV SCH (10:00)
[2023-09-24] MEDS ORDERED: Enoxaparin Sodium 40 MG/0.4 ML SYR SC SCH (10:00)
[2023-09-24] MEDS ORDERED: DIAZEPAM 2 MG TAB PO PRN (10:55)
[2023-09-24] MEDS ORDERED: Carbidopa/Levodopa CR 25/100MG 1 TAB PO SCH (14:00)
[2023-09-24] MEDS ORDERED: Ceftriaxone Sodium 1 GM in SYRINGE INFUSION 10 ML IV ONE (16:30)
[2023-09-24] MEDS ORDERED: OMEPRAZOLE 20 MG CAP PO SCH (16:30)
[2023-09-24] MEDS ORDERED: GEMFIBROZIL 600 MG TAB PO SCH (16:30)
[2023-09-24] MEDS ORDERED: AZITHROMYCIN 250 ML IV SCH (17:00)
[2023-09-24] MEDS ORDERED: ATORVASTATIN CALCIUM 40 MG TABLET PO SCH (18:00)
[2023-09-24] MEDS ORDERED: Ceftriaxone Sodium 1 GM in SYRINGE INFUSION 10 ML IV SCH (18:00)
[2023-09-24] MEDS ORDERED: LATANOPROST 0.005% 2.5 ML BOTTLE INTRAOC SCH (22:00)
[2023-09-24] MEDS ORDERED: TOPIRAMATE 25 MG TAB PO SCH (22:00)
[2023-09-24] MEDS ORDERED: GABAPENTIN 300 MG CAP PO SCH (22:00)
[2023-09-24] MEDS ORDERED: Sertraline Hydrochloride 50 MG TAB PO SCH (22:00)
[2023-09-25] VITALS: BP 150/86
[2023-09-25 07:08] LABS: BASO % 0.1 % (0.0-1.0); EOS % 0.1 % (1.0-4.0); HEMATOCRIT 38.3 % (37.0-47.0); LYMPH % 10.4 % (27.0-41.0); MEAN CELL VOLUME 80.3 fl (81.0-99.0); MEAN CORPUSCULAR HGB 23.5 pg (27.0-31.0); MEAN CORPUSCULAR HGB CONC 29.2 g/dl (33.0-37.0); MEAN PLATELET VOLUME 10.3 fl (9.6-12.3); MONO # 0.2 10*3/uL (0.1-1.0); MONO % 2.4 % (3.0-9.0); NEUT % 86.4 % (47.0-73.0); PLATELET COUNT AUTOMATED 206 10*3/uL (130-400); RED BLOOD COUNT 4.77 10*6/uL (4.10-5.10); RED CELL DISTRI WIDTH 13.8 % (0-14.5); WHITE BLOOD COUNT 9.3 10*3/uL (4.8-10.8)
[2023-09-25 07:36] LABS: BUN 10 mg/dl (9-23); CHLORIDE 103 mmol/L (98-107); POTASSIUM 4.3 mmol/L (3.4-5.1)
[2023-09-25 08:00] VITALS: BP 156/79
[2023-09-25] MEDS ORDERED: ASPIRIN ENTERIC COATED 81 MG TAB PO SCH (10:00)
[2023-09-25 12:00] VITALS: BP 163/79
[2023-09-25] MEDS ORDERED: amLODIPine besylate 5 MG TAB PO SCH (13:55)
[2023-09-25] MEDS ORDERED: Ceftriaxone Sodium 2 GM in SYRINGE INFUSION 20 ML IV SCH (16:00)
[2023-09-25 16:55] VITALS: BP 144/80
[2023-09-25 20:00] VITALS: BP 152/67
[2023-09-25] MEDS ORDERED: Levalbuterol Hydrochloride 1.25 MG VIAL NEB SCH (20:20)
[2023-09-26] VITALS: BP 142/73
[2023-09-26 06:22] LABS: BUN 12 mg/dl (9-23); CHLORIDE 104 mmol/L (98-107)
[2023-09-26 06:33] LABS: HEMATOCRIT 38.6 % (37.0-47.0); MEAN CORPUSCULAR HGB 23.1 pg (27.0-31.0); MEAN CORPUSCULAR HGB CONC 28.2 g/dl (33.0-37.0); MEAN PLATELET VOLUME 10.5 fl (9.6-12.3); PLATELET COUNT AUTOMATED 208 10*3/uL (130-400); RED BLOOD COUNT 4.71 10*6/uL (4.10-5.10); RED CELL DISTRI WIDTH 13.9 % (0-14.5); WHITE BLOOD COUNT 6.9 10*3/uL (4.8-10.8)
[2023-09-26 06:34] LABS: MANUAL DIFF REFLEX YES
[2023-09-26 07:12] LABS: BASOPHILS 1 % (0-1); TOTAL CELLS COUNTED 100 #CELLS
[2023-09-26 07:13] LABS: BURR CELLS FEW; OVALOCYTES FEW; PLATELET SUFFICIENCY NORMAL (NORMAL); POLYCHROMASIA SLIGHT
[2023-09-26 08:00] VITALS: BP 154/78
[2023-09-26 12:00] VITALS: BP 161/77
[2023-09-26 16:00] VITALS: BP 143/66
[2023-09-26 20:00] VITALS: BP 150/57
[2023-09-27] VITALS: BP 141/67
[2023-09-27 06:07] LABS: BASO % 0.2 % (0.0-1.0); HEMATOCRIT 38.3 % (37.0-47.0); LYMPH # 0.6 10*3/uL (1.3-4.4); LYMPH % 9.8 % (27.0-41.0); MEAN CELL VOLUME 81.3 fl (81.0-99.0); MEAN CORPUSCULAR HGB 23.8 pg (27.0-31.0); MEAN CORPUSCULAR HGB CONC 29.2 g/dl (33.0-37.0); MEAN PLATELET VOLUME 10.2 fl (9.6-12.3); MONO # 0.2 10*3/uL (0.1-1.0); MONO % 3.8 % (3.0-9.0); NEUT # 4.9 10*3/uL (2.3-7.9); NEUT % 84.1 % (47.0-73.0); PLATELET COUNT AUTOMATED 209 10*3/uL (130-400); RED BLOOD COUNT 4.71 10*6/uL (4.10-5.10); RED CELL DISTRI WIDTH 14.4 % (0-14.5); WHITE BLOOD COUNT 5.8 10*3/uL (4.8-10.8)
[2023-09-27 08:25] VITALS: BP 140/70
[2023-09-27] MEDS ORDERED: DOXYCYCLINE HY100 M3 PO (08:53)
[2023-09-27] MEDS ORDERED: HYDROCODONE-AC1 EAC1 PO (08:53)
[2023-09-27] MEDS ORDERED: AMLODIPINE BESYL5 MG PO (08:53)
[2023-09-27 10:55] VITALS: BP 145/73
== END 2023-09-27 12:23 | disposition home or self-care (01) | DRG 871 ==
LOC: ED 17:12 → 5E 19:42 → EDHOLD 19:42 → 5E 09-24 01:11
PROVIDERS: Physician Assistant Medical; Student in an Organized Health Care Education/Training Program; ADMIT Internal Medicine; ATTEND Internal Medicine
DX: A41.9 Sepsis, unspecified organism (principal); J69.0 Pneumonitis due to inhalation of food and vomit; J44.1 Chronic obstructive pulmonary disease with (acute) exacerbation; E87.20 Acidosis, unspecified; J44.0 Chronic obstructive pulmonary disease with (acute) lower respiratory infection; J96.11 Chronic respiratory failure with hypoxia; R65.20 Severe sepsis without septic shock; E55.9 Vitamin D deficiency, unspecified; E11.65 Type 2 diabetes mellitus with hyperglycemia; Z20.822 Contact with and (suspected) exposure to COVID-19; E78.2 Mixed hyperlipidemia; I10 Essential (primary) hypertension; F41.1 Generalized anxiety disorder; D50.9 Iron deficiency anemia, unspecified; K21.9 Gastro-esophageal reflux disease without esophagitis; M81.0 Age-related osteoporosis without current pathological fracture; G43.909 Migraine, unspecified, not intractable, without status migrainosus; Z90.49 Acquired absence of other specified parts of digestive tract; Z98.51 Tubal ligation status; Z87.891 Personal history of nicotine dependence; Z82.49 Family history of ischemic heart disease and other diseases of the circulatory system; Z82.5 Family history of asthma and other chronic lower respiratory diseases; Z79.82 Long term (current) use of aspirin; Z79.51 Long term (current) use of inhaled steroids; Z79.899 Other long term (current) drug therapy; Z79.84 Long term (current) use of oral hypoglycemic drugs

== ENCOUNTER → 2024-01-19 | Outpatient (CLI) | payer OTHER ==
[~2024-01-19] MED LIST changes: +AMLODIPINE BESYL5 MG PO; +DOXYCYCLINE HY100 M3 PO; +HYDROCODONE-AC1 EAC1 PO; +LAC-HYDRIN FIV226 GM T; +Sinemet Cr 25-11 TAB PO; +TOPAMAX25 M3 PO; +VOLTAREN ARTHRI20 GM T; +ZOLOFT100 MG PO
== END | disposition home or self-care (01) ==
LOC: CT 08:54
PROVIDERS: ATTEND Internal Medicine Critical Care Medicine
DX: J43.9 Emphysema, unspecified (principal); R91.1 Solitary pulmonary nodule; J44.9 Chronic obstructive pulmonary disease, unspecified; I25.10 Atherosclerotic heart disease of native coronary artery without angina pectoris; J96.11 Chronic respiratory failure with hypoxia; Z99.81 Dependence on supplemental oxygen; Z87.891 Personal history of nicotine dependence; Z86.16 Personal history of COVID-19; Z68.1 Body mass index [BMI] 19.9 or less, adult

== ENCOUNTER 2024-01-28 12:16 | Emergency (ER) | payer OTHER ==
[~2024-01-28] VITALS: Ht 154.9 cm; Wt 44.5 kg
[2024-01-28] MEDS ORDERED: LIPITOR20 MG PO (12:41)
[2024-01-28] MEDS ORDERED: ATORVASTATIN CA40 M1 PO (12:48)
[2024-01-28] MEDS ORDERED: SYMB80 INH (12:49)
[2024-01-28] MEDS ORDERED: ALBUTEROL2.5 MG/0.5 INH (12:50)
[2024-01-28] MEDS ORDERED: BREZTRI AEROS10.7 GM INH (12:51)
[2024-01-28] MEDS ORDERED: MIRAPEX ER1.5 MG PO (12:53)
== END 2024-01-28 12:47 | disposition home or self-care (01) ==
LOC: ED 12:16
DX: H61.22 Impacted cerumen, left ear (principal); M19.90 Unspecified osteoarthritis, unspecified site; K21.9 Gastro-esophageal reflux disease without esophagitis; J44.9 Chronic obstructive pulmonary disease, unspecified; E11.9 Type 2 diabetes mellitus without complications; F32.A Depression, unspecified; E78.00 Pure hypercholesterolemia, unspecified; Z98.51 Tubal ligation status; Z90.49 Acquired absence of other specified parts of digestive tract; Z98.890 Other specified postprocedural states; Z87.891 Personal history of nicotine dependence

== ENCOUNTER → 2024-02-29 | Outpatient (CLI) | payer OTHER ==
[~2024-02-29] MED LIST changes: +ALBUTEROL2.5 MG/0.5 INH; +BREZTRI AEROS10.7 GM INH; +LIPITOR20 MG PO; +MIRAPEX ER1.5 MG PO; +SYMB80 INH
== END | disposition home or self-care (01) ==
LOC: LAB 12:19
PROVIDERS: ATTEND Radiology Diagnostic Radiology
DX: R10.30 Lower abdominal pain, unspecified (principal)

== ENCOUNTER → 2024-03-01 | Outpatient (CLI) | payer OTHER ==
[~2024-03-01] MED LIST changes: +IOHEXOL 300 MG/ML 100 ML VIAL IV ONE
== END | disposition home or self-care (01) ==
LOC: CT 00:36
PROVIDERS: ATTEND Nurse Practitioner Family
DX: K57.32 Diverticulitis of large intestine without perforation or abscess without bleeding (principal); K76.0 Fatty (change of) liver, not elsewhere classified; J43.9 Emphysema, unspecified; D25.9 Leiomyoma of uterus, unspecified

== ENCOUNTER 2024-06-17 13:55 | Emergency (ER) | payer OTHER ==
[~2024-06-17] VITALS: Ht 154.9 cm; Wt 44.5 kg
[~2024-06-17 13:55] MED LIST changes: +AIMOVIG AU140 MG/1 M SQ; +AIRSUPRA 90-810.7 GM INH; +ARTHRITIS PAIN150 GM T; +CEPACOL SORE T1 EACH MM; +DIVALPROEX SOD500 MG PO; +GABAPENTIN400 MG PO; +HYDROCORT-PRAMO30 G1 T; -IOHEXOL 300 MG/ML 100 ML VIAL IV ONE; +MOMETASONE FURO15 GM OT; +MUCINEX1200 M1 PO; +OMEPRAZOLE40 MG PO; +OYSTER SHELL PO; +REGLAN5 MG PO; +SERTRALINE HYD100 MG PO; +SPIRIVA RESPIMAT4 GM INH; +SYMB160 INH; +THROAT SPRAY177 ML MM; +VITAMIN D350 MC3 PO
[2024-06-17] MEDS ORDERED: MG-AL HYDROXIDE/SIMETICONE 30 ML UDC PO STA (15:29)
[2024-06-17] MEDS ORDERED: Dicyclomine Hydrochloride 20 MG/10 ML OSYR PO STA (15:29)
[2024-06-17] MEDS ORDERED: Lidocaine Hydrochloride 15 ML UDC PO STA (15:29)
[2024-06-17 15:49] LABS: HEMATOCRIT 44.2 % (37.0-47.0); MEAN CELL VOLUME 81.3 fl (81.0-99.0); MEAN CORPUSCULAR HGB 24.6 pg (27.0-31.0); MEAN CORPUSCULAR HGB CONC 30.3 g/dl (33.0-37.0); MEAN PLATELET VOLUME 9.6 fl (9.6-12.3); PLATELET COUNT AUTOMATED 177 10*3/uL (130-400); RED BLOOD COUNT 5.44 10*6/uL (4.10-5.10); RED CELL DISTRI WIDTH 13.8 % (0-14.5); WHITE BLOOD COUNT 12.1 10*3/uL (4.8-10.8)
[2024-06-17 15:51] LABS: MANUAL DIFF REFLEX YES
[2024-06-17 16:09] LABS: ALKALINE PHOSPHATASE 162 U/L (46-116); BUN 17 mg/dl (9-23); CHLORIDE 100 mmol/L (98-107); LIPASE 59 U/L (12-53); POTASSIUM 3.4 mmol/L (3.4-5.1); SGPT/ALT 71 U/L (5-49); TOTAL PROTEIN 6.1 gm/dL (6.0-8.0)
[2024-06-17 16:11] LABS: PLATELET SUFFICIENCY NORMAL (NORMAL); TOTAL CELLS COUNTED 100 #CELLS
== END 2024-06-17 17:18 | disposition home or self-care (01) ==
LOC: ED 13:55
PROVIDERS: Nurse Practitioner Family
DX: K21.9 Gastro-esophageal reflux disease without esophagitis (principal); M19.90 Unspecified osteoarthritis, unspecified site; J44.9 Chronic obstructive pulmonary disease, unspecified; E11.9 Type 2 diabetes mellitus without complications; F32.A Depression, unspecified; E78.00 Pure hypercholesterolemia, unspecified; Z90.49 Acquired absence of other specified parts of digestive tract; Z98.890 Other specified postprocedural states; Z87.891 Personal history of nicotine dependence

== ENCOUNTER → 2024-06-19 | Outpatient (CLI) | payer OTHER ==
[~2024-06-19] MED LIST changes: +IOHEXOL 300 MG/ML 100 ML VIAL IV ONE
== END | disposition home or self-care (01) ==
LOC: CT 00:23
PROVIDERS: ATTEND Nurse Practitioner Primary Care
DX: K76.0 Fatty (change of) liver, not elsewhere classified (principal); R10.11 Right upper quadrant pain; R74.8 Abnormal levels of other serum enzymes; D72.829 Elevated white blood cell count, unspecified; I70.0 Atherosclerosis of aorta; K57.30 Diverticulosis of large intestine without perforation or abscess without bleeding; J43.9 Emphysema, unspecified; D25.9 Leiomyoma of uterus, unspecified; Z90.49 Acquired absence of other specified parts of digestive tract

== ENCOUNTER → 2024-09-20 | Outpatient (CLI) | payer OTHER ==
[~2024-09-20] MED LIST changes: -IOHEXOL 300 MG/ML 100 ML VIAL IV ONE
== END | disposition home or self-care (01) ==
LOC: MAMMO 00:10
PROVIDERS: ATTEND Nurse Practitioner Primary Care
DX: Z12.31 Encounter for screening mammogram for malignant neoplasm of breast (principal)

== ENCOUNTER 2024-11-25 21:04 | Emergency (ER) | payer OTHER ==
[~2024-11-25] VITALS: Ht 154.9 cm; Wt 54.4 kg
[2024-11-25] MEDS ORDERED: Ondansetron Hydrochloride 4 MG/2 ML VIAL IV ONE (21:40)
[2024-11-25] MEDS ORDERED: SODIUM CHLORIDE 0.9% 1,000 ML IV ONE (21:40)
[2024-11-25 21:47] LABS: BASO % 0.4 % (0.0-1.0); EOS # 0.4 10*3/uL (0.0-0.4); EOS % 4.6 % (1.0-4.0); HEMATOCRIT 40.3 % (37.0-47.0); MEAN CELL VOLUME 80.3 fl (81.0-99.0); MEAN CORPUSCULAR HGB 24.7 pg (27.0-31.0); MEAN CORPUSCULAR HGB CONC 30.8 g/dl (33.0-37.0); MEAN PLATELET VOLUME 9.5 fl (9.6-12.3); MONO # 0.8 10*3/uL (0.1-1.0); MONO % 10.7 % (3.0-9.0); NEUT % 64.5 % (47.0-73.0); PLATELET COUNT AUTOMATED 176 10*3/uL (130-400); RED BLOOD COUNT 5.02 10*6/uL (4.10-5.10); RED CELL DISTRI WIDTH 13.4 % (0-14.5); WHITE BLOOD COUNT 7.8 10*3/uL (4.8-10.8)
[2024-11-25 22:12] LABS: ALKALINE PHOSPHATASE 83 U/L (46-116); BUN 16 mg/dl (9-23); CHLORIDE 100 mmol/L (98-107); LIPASE 81 U/L (12-53); POTASSIUM 4.1 mmol/L (3.4-5.1); TOTAL PROTEIN 6.7 gm/dL (6.0-8.0)
[2024-11-25 22:16] LABS: SGPT/ALT < 7 U/L (5-49)
[2024-11-26] MEDS ORDERED: Ondansetron Hydrochloride 4 MG TAB SL ONE (00:20)
[2024-11-26] MEDS ORDERED: Ondansetron4 MG PO (00:23)
== END 2024-11-26 00:40 | disposition home or self-care (01) ==
LOC: ED 21:04
PROVIDERS: Internal Medicine
DX: K52.9 Noninfective gastroenteritis and colitis, unspecified (principal); R11.2 Nausea with vomiting, unspecified; Z79.899 Other long term (current) drug therapy; Z79.84 Long term (current) use of oral hypoglycemic drugs; Z79.82 Long term (current) use of aspirin; Z98.890 Other specified postprocedural states; Z90.49 Acquired absence of other specified parts of digestive tract; Z87.891 Personal history of nicotine dependence

== ENCOUNTER 2025-01-08 10:33 | Emergency (ER) | payer OTHER ==
[~2025-01-08] VITALS: Ht 154.9 cm; Wt 49.0 kg
[2025-01-08] MEDS ORDERED: Metoclopramide Hydrochloride 10 MG/2 ML VIAL IV ONE (11:00)
[2025-01-08] MEDS ORDERED: Dexamethasone Sodium Phospha 20 MG/5 ML VIAL IV ONE (11:00)
[2025-01-08] MEDS ORDERED: ACETAMINOPHEN 325 MG TAB PO ONE (11:00)
[2025-01-08] MEDS ORDERED: diphenhydrAMINE hydrochloride 50 MG/ML VIAL IV ONE (11:00)
[2025-01-08] MEDS ORDERED: SODIUM CHLORIDE 0.9% 1,000 ML IV ONE (11:00)
[2025-01-08] MEDS ORDERED: REGLAN10 M1 PO (12:46)
== END 2025-01-08 12:37 | disposition home or self-care (01) ==
LOC: ED 10:33
DX: R51.9 Headache, unspecified (principal); J44.9 Chronic obstructive pulmonary disease, unspecified; E11.9 Type 2 diabetes mellitus without complications; K21.9 Gastro-esophageal reflux disease without esophagitis; F32.A Depression, unspecified; Z79.899 Other long term (current) drug therapy; Z90.49 Acquired absence of other specified parts of digestive tract; Z98.51 Tubal ligation status; Z98.890 Other specified postprocedural states

== ENCOUNTER 2025-03-18 16:22 | Emergency (ER) | payer OTHER ==
[~2025-03-18] VITALS: Ht 154.9 cm; Wt 47.6 kg
[~2025-03-18 16:22] MED LIST changes: +ACETAZOLAMIDE250 MG PO; +ALLERGY RELIEF10 M4 PO; +AMMONIUM LACTA227 GM T; +BANOPHEN25 MG PO; +DAILY FIBER0.52 GM PO; +NURTEC ODT75 MG PO; +SINEMET 10-1001 EACH PO
[2025-03-18] MEDS ORDERED: Albuterol Sulf/Ipratropium 3 ML VIAL NEB ONE (17:10)
[2025-03-18 17:31] LABS: BASO # 0.0 10*3/uL (0.0-0.1); BASO % 0.3 % (0.0-1.0); EOS # 0.3 10*3/uL (0.0-0.4); EOS % 4.6 % (1.0-4.0); MEAN CELL VOLUME 80.0 fl (81.0-99.0); MEAN CORPUSCULAR HGB 24.6 pg (27.0-31.0); MEAN PLATELET VOLUME 9.3 fl (9.6-12.3); MONO # 0.6 10*3/uL (0.1-1.0); MONO % 9.6 % (3.0-9.0); NEUT # 4.4 10*3/uL (2.3-7.9); NEUT % 70.4 % (47.0-73.0); NUCLEATED RED BLOOD CELL 0.0 % (0.0-0.0); NUCLEATED RED BLOOD CELL 0.0 10*3/uL (0.0-0.0); PLATELET COUNT AUTOMATED 141 10*3/uL (130-400); RED CELL DISTRI WIDTH 13.8 % (0-14.5)
[2025-03-18 17:55] LABS: BUN 12 mg/dl (9-23)
[2025-03-18] MEDS ORDERED: GUAIFENESIN AC473 M1 PO (18:58)
[2025-03-18] MEDS ORDERED: PREDNISONE20 M1 PO (18:58)
== END 2025-03-18 19:19 | disposition home or self-care (01) ==
LOC: ED 16:22
PROVIDERS: Emergency Medicine
DX: J44.9 Chronic obstructive pulmonary disease, unspecified (principal); J06.9 Acute upper respiratory infection, unspecified; J40 Bronchitis, not specified as acute or chronic; M19.90 Unspecified osteoarthritis, unspecified site; K21.9 Gastro-esophageal reflux disease without esophagitis; E11.9 Type 2 diabetes mellitus without complications; F32.A Depression, unspecified; E78.00 Pure hypercholesterolemia, unspecified; Z98.890 Other specified postprocedural states; Z90.49 Acquired absence of other specified parts of digestive tract; Z87.891 Personal history of nicotine dependence; Z20.822 Contact with and (suspected) exposure to COVID-19

== ENCOUNTER 2025-03-31 13:24 | Emergency (ER) | payer OTHER ==
[~2025-03-31] VITALS: Ht 154.9 cm; Wt 47.6 kg
[~2025-03-31 13:24] MED LIST changes: +GUAIFENESIN AC473 M1 PO
[2025-03-31] MEDS ORDERED: CEPHALEXIN500 M1 PO (13:50)
[2025-03-31] MEDS ORDERED: Tdap Vaccine 0.5 ML SYR (Adult Vaccine) IM ONE (13:50)
[2025-03-31] MEDS ORDERED: DERMABOND 1 EA APPL T ONE (14:08)
== END 2025-03-31 14:12 | disposition home or self-care (01) ==
LOC: ED 13:24
DX: S61.411A Laceration without foreign body of right hand, initial encounter (principal); J44.9 Chronic obstructive pulmonary disease, unspecified; K21.9 Gastro-esophageal reflux disease without esophagitis; E78.5 Hyperlipidemia, unspecified; Z79.899 Other long term (current) drug therapy; Z79.82 Long term (current) use of aspirin; Z98.890 Other specified postprocedural states; Z90.49 Acquired absence of other specified parts of digestive tract; Z87.891 Personal history of nicotine dependence; W26.0XXA Contact with knife, initial encounter; Y93.89 Activity, other specified; Y92.89 Other specified places as the place of occurrence of the external cause; Y99.8 Other external cause status

== ENCOUNTER → 2025-06-05 | Outpatient (CLI) | payer OTHER ==
[~2025-06-05] MED LIST changes: +ATARAX,VISTARIL10 MG PO; +BANOPHEN25 M1 PO; -BANOPHEN25 MG PO; +SINEMET 25-1001 EACH PO; +ZESTRIL20 MG PO
== END | disposition home or self-care (01) ==
LOC: CT 12:57
PROVIDERS: ATTEND Internal Medicine Critical Care Medicine
DX: J43.9 Emphysema, unspecified (principal); J44.9 Chronic obstructive pulmonary disease, unspecified; J96.11 Chronic respiratory failure with hypoxia; J45.50 Severe persistent asthma, uncomplicated; R91.1 Solitary pulmonary nodule; Z87.891 Personal history of nicotine dependence; Z86.16 Personal history of COVID-19; Z99.81 Dependence on supplemental oxygen; Z68.1 Body mass index [BMI] 19.9 or less, adult